=== PATIENT | female | born 1975 | race Caucasian/White ===

== ENCOUNTER 2020-01-31 14:55 | Outpatient (CLI) | payer OTHER, SELFPAY ==
--- NOTE | ~2020-01-31 | MM_ITS ---
EXAMINATION: MM screening luther BI w kandice HISTORY: Screening mammogram TECHNIQUE: Craniocaudal and mediolateral oblique 3-D tomosynthesis images were obtained and synthetic 2-D images were generated. CAD analysis was submitted and interpreted. COMPARISON: 01/28/2019 bilateral digital screening mammogram BREAST PARENCHYMAL COMPOSITION: The breasts are almost entirely fatty. FINDINGS: There is no evidence of suspicious mass, calcification, or architectural distortion to sugg est malignancy in either breast. There has been no suspicious interval change. IMPRESSION: 1. No mammographic evidence of malignancy. 2. Recommend routine screening mammography in one year. BI-RADS Category 1: Negative Reviewed, dictated and finalized at location A.
== END 2020-01-31 14:56 | disposition home or self-care (01) ==
LOC: ANHIMG 14:58
PROVIDERS: PCP Emergency Medicine; Visit Provider Obstetrics & Gynecology
DX: Z12.31 Encounter for screening mammogram for malignant neoplasm of breast (principal)
CPT/HCPCS: 77063; 77067

== ENCOUNTER 2020-07-27 15:43 | Outpatient (CLI) | payer OTHER, SELFPAY ==
--- NOTE | ~2020-07-27 | MR_ITS ---
EXAMINATION: MR knee LT wo con DATE: 07/27/2020 16:39 INDICATION: Left knee pain and swelling TECHNIQUE: Magnetic resonance imaging (MRI) of the left knee was performed without intravenous contra st. Sequences included coronal PD-weighted FSE, coronal PD-weighted FS FSE, sagittal T2-weighted FSE , sagittal PD-weighted FS FSE and axial PD weighted fat saturated FSE. COMPARISON: None. FINDINGS: Medial compartment: Medial meniscus is normal. Articular cartilage is normal. Lateral compartment: Lateral meniscus is normal. Articular cartilage is normal. Patellofemoral compartment: Small region of deep chondral fissuring with underlying mild cortical irregularity and subcortical cy stic change and mild surrounding marrow edema at the central aspect of the lateral trochlea. Shallow chondral ulceration at the caudal aspect of the more inferomedial lateral trochlea extends the trochl ear groove. More extensive deep chondral fissuring with crabmeat-like appearance along the lateral pa tellar facet, apical ridge and lateral side of the medial facet without degenerative subchondral jay ges. Focal deep chondral ulceration with mild underlying subarticular edema at the inferomedial aspec t of the medial facet. Ligaments and tendons: Anterior and posterior cruciate ligaments are normal. The medial collateral ligament and fibular stephanie ateral ligament complex are normal. The extensor mechanism is normal. The visualized medial and later al hamstring tendons as well as the iliotibial band are normal. Fluid: Physiologic amount of fluid in the joint space. No loose osteochondral bodies identified. Osseous/other: Bone alignment is normal. No fracture or pathologic marrow replacing process. IMPRESSION: 1. Mild patellofemoral osteoarthritis with small region of high-grade chondromalacia at the lateral t rochlea and more extensive moderate to high-grade patellar chondromalacia. Reviewed, dictated and finalized at location A. 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 Mild patellofemoral osteoarthritis with small region of high-grade chondroma lacia at the lateral trochlea and more extensive moderate to high-grade patella r chondromalacia.
== END 2020-07-27 15:44 | disposition home or self-care (01) ==
PROVIDERS: PCP Emergency Medicine; Visit Provider Orthopaedic Surgery
DX: M17.12 Unilateral primary osteoarthritis, left knee (principal); M22.42 Chondromalacia patellae, left knee
CPT/HCPCS: 73721

== ENCOUNTER 2021-03-28 14:16 | Outpatient (CLI) | payer OTHER, SELFPAY ==
--- NOTE | ~2021-03-28 | MM_ITS ---
EXAMINATION: MM screening luther BI w kandice HISTORY: Screening mammogram, family history of breast cancer in her mother. TECHNIQUE: Craniocaudal and mediolateral oblique 3-D tomosynthesis images were obtained and synthetic 2-D images were generated. CAD analysis was submitted and interpreted. COMPARISON: 01/31/2020 01/28/2019 BREAST PARENCHYMAL COMPOSITION: There are scattered areas of fibroglandular density. FINDINGS: There is no evidence of suspicious mass, calcification, or architectural distortion to sugg est malignancy in either breast. There has been no suspicious interval change. IMPRESSION: 1. No mammographic evidence of malignancy. 2. Recommend routine screening mammography in one year. BI-RADS Category 1: Negative Reviewed, dictated and finalized at location A.
== END 2021-03-28 14:17 | disposition home or self-care (01) ==
LOC: ANHIMG 14:19
PROVIDERS: PCP Emergency Medicine; Visit Provider Emergency Medicine
DX: Z12.31 Encounter for screening mammogram for malignant neoplasm of breast (principal)
CPT/HCPCS: 77063; 77067

== ENCOUNTER 2023-08-04 08:35 | Outpatient (CLI) | payer OTHER, SELFPAY ==
--- NOTE | 2023-08-06 12:38 | WPDSLEEPSTUD ---
Sleep Study Date of Study: 08/04/23 Ordering Provider: Angel Au DO Interpreting Physician: Ana Arriaga DO Sleep Study Type: Polysomnogram Height: 1.63 m Weight: 82.554 kg Body Mass Index: 31.2 Neck Circumference (inches): 13 [place]: 20 Reason for Sleep Study Difficulty falling asleep Sleep History The patient is a 48 year old female with hypothyroidism, hyperlipidemia, depression, COPD, migraine, congestive heart failure, kidney disease and tobacco use that had a sleep study ordered by her channel machine operator for evaluation sleep apnea. The patient occasionally awakens from sleep short of breath. She denies awakening at night with heartburn, belching or cough. She constantly snores but it is never loud enough that others complain. She constantly has trouble sleeping when she has a cold. She occasionally wakes up gasping for air throughout the night. She denies having breathing problems at night observed by herself or others. She occasionally sweats excessively at night. She occasionally has heart palpitations or irregular heartbeats during the night. He rarely falls asleep during the day but never while driving. She occasionally experiences loss of muscle tone when extremely emotional. She denies having trouble at school or work due to sleepiness. She denies sleep paralysis. She occasionally experiences vivid dreamlike scenes upon awakening or falling asleep. She rarely feels afraid of going to sleep. She denies having nightmares. She occasionally remembers her dreams. She constantly has thoughts racing through her mind. She constantly feels sad, depressed and anxious. She frequently has muscular tension. She occasionally notices parts of her body jerk. She rarely kicks during the night. She denies having crawling and aching feelings in her legs but occasionally has leg pain during the night. She denies grinding teeth during sleep but constantly awakens with morning jaw pain. She is frequently bothered by pain during the day and constantly awakened by pain during the night. She constantly wakes up feeling stiff in the morning. She constantly wakes up with sore or achy muscles. She constantly wakes up with pain in the neck, spine or other joints. She goes to bed at 10:00 p.m. on both weekdays and weekends. She is either able to fall asleep immediately or she will stay in bed for a while. She wakes up 3 times throughout the night for unknown reasons and it takes 30 minutes for her to fall back asleep. She wakes up between 5-6 a.m. on weekdays and between 5-7 a.m. on the weekends. She typically gets 3 hours of sleep per night. She will stay in bed for 20 minutes after waking up in the morning. She currently lives with her children. She denies consuming any caffeinated beverages within 2 hours of bedtime. She will engage in physical exercise before bedtime. She will read before falling asleep. She denies taking naps in the afternoon or the evening. She consumes 2 bottles of caffeinated beverage per day. She currently smokes less than half a pack of cigarettes per day. She denies alcohol and recreational drug use. [facility]LY [facility] Past Medical History Medical History Chondromalacia, patella Congestive heart failure COPD (chronic obstructive pulmonary disease) Headache, migraine Hyperlipidemia Hypothyroidism Kidney disease Left knee pain Medial meniscus tear Thyroid disorder Tongue cancer Surgical History Surgical History History of appendectomy History of gastric surgery History of kidney surgery History of mandibular surgery History of skin graft History of tooth extraction all teeth removed. History of total hysterectomy Family History Family History Father Skin cancer Diabetes mellitus Hypertension Heart disease Cerebrovascular
[2023-08-06 12:49] VITALS: BMI 31.2
== END 2023-08-05 07:26 | disposition home or self-care (01) ==
LOC: ANHCSM 08:35
PROVIDERS: PCP Emergency Medicine; Visit Provider Internal Medicine Cardiovascular Disease
DX: G47.10 Hypersomnia, unspecified (principal)
CPT/HCPCS: 95810

== ENCOUNTER 2023-08-20 02:44 | Day surgery (SDC) | payer OTHER, SELFPAY ==
[2023-07-23 13:01] VITALS: BMI 31.4
--- NOTE | 2023-08-04 09:11 | SUR.PREOP ---
Called patient regarding appointment reminder. Patient said she needed to reschedule because she forgot to arrange a ride through her insurance and the need a three day notice. I rescheduled her to Aug 15 and asked her to call her insurance company today to let them know she would need transportation. Patient voiced understanding.
[2023-08-12 08:34] VITALS: BMI 31.4
--- NOTE | 2023-08-12 08:38 | PC.NURSE ---
Pt rescheduled to 08/20/2023 pending stress/echo 08/15/2023.
--- NOTE | 2023-08-18 08:36 | SUR.PREOP ---
Spoke with patient and verified the new date and time of her rescheduled. Patient confirms and stated that there has been no updates to her medical history or medication list.
--- NOTE | 2023-08-18 10:40 | SUR.PREOP ---
Patient called regarding upcoming procedure. Reviewed preop instructions, appointment times, and procedure prep.
[2023-08-20 13:14] VITALS: BP 106/91; PULSE 78; RESP 16; TEMP 36.2; O2SAT 100; BMI 31.2
[2023-08-20] MEDS: LACTATED RINGERS 1,000 ML 150 ML IV CONT (13:35)
--- NOTE | 2023-08-20 13:45 | PM.HPGS ---
History of Present Illness History of Present Illness Consent: Risks, benefits, and alternatives have been discussed and questions answered. Patient agrees to proceed with procedure. Chief complaint: colon screening Narrative: Crystal Berry is a 48 year old female here for first screening colonoscopy, denies bleeding. Review of Systems Constitutional: Constitutional: Denies headache(s) and Denies weakness Eyes: Eyes: Denies blurry vision ENT: Reports Normal hearing present, Denies headache(s) and Denies neck pain Cardiovascular: Cardiovascular: Denies chest pain and Denies dyspnea Respiratory: Respiratory: Denies dyspnea Gastrointestinal: Gastrointestinal: Reports no additional gastrointestinal complaints Genitourinary: Genitourinary: Denies dysuria Musculoskeletal: Musculoskeletal: Denies neck pain Integumentary/Breasts: Skin/Breast: Denies dry skin Neurologic: Reports Normal hearing present, Denies headache(s) and Denies weakness Psychiatric: Psychiatric: Denies anxiety Endocrine: Endocrine: Denies change in body appearance Hematologic/Lymphatic: Hematologic/Lymphatic: Denies easy bleeding Allergic/Immunologic: Allergic/Immunologic: Denies urticaria PMFSH Past Medical History Medical History (Updated 08/20/23 @ 13:46 by William Banegas MD) Chondromalacia, patella Colon cancer screening Congestive heart failure COPD (chronic obstructive pulmonary disease) Headache, migraine Hyperlipidemia Hypothyroidism Kidney disease Left knee pain Medial meniscus tear Thyroid disorder Tongue cancer Surgical History Surgical History History of appendectomy History of gastric surgery History of kidney surgery History of mandibular surgery History of skin graft History of tooth extraction all teeth removed. History of total hysterectomy Family History Family History Father Skin cancer Diabetes mellitus Hypertension Heart disease Cerebrovascular accident Thyroid disorder Mother Depression Heart disease Grandparent Family history of malignant neoplasm Other Family history of arthritis Social History Social History Smoking status: Current every day smoker Tobacco type: cigarettes Smoking end date: 09/15/15 Alcohol intake: never Substance use: never Substance use type: does not use Living arrangements: with family Spiritual care concerns: No Meds Home Medications and Allergies Home Medications Medication Instructions Recorded Confirmed Type tramadol 50 mg tablet 50 mg PO Q6H PRN Pain 06/26/20 08/12/23 History gabapentin 100 mg capsule 100 mg PO DAILY 03/30/21 08/12/23 History levothyroxine 75 mcg tablet 50 mcg PO DAILY 03/30/21 08/12/23 History (Synthroid) rosuvastatin 10 mg tablet 10 mg PO DAILY 03/30/21 08/12/23 History estradiol 1 mg tablet 1 mg PO DAILY #90 tabs 04/06/21 08/12/23 Rx acetaminophen 500 mg tablet 500 mg PO DAILY PRN Pain 07/23/23 08/12/23 History diclofenac sodium 75 mg 75 mg PO DAILY 07/23/23 08/12/23 History tablet,delayed release duloxetine 30 mg capsule,delayed 60 mg PO DAILY 07/23/23 08/12/23 History release Allergies Allergy/AdvReac Type Severity Reaction Status Date / Time No Known Allergies Allergy Verified 08/20/23 12:54 Vital Signs Vital Signs - 24 hr 08/20/23 13:14 Temperature 97.1 F L Pulse Rate 78 Respiratory Rate 16 Blood Pressure 106/91 H Pulse Oximetry 100 Oxygen Delivery Room Air Exam Const: General: comfortable and no acute distress HENMT: Face/Nose/Sinus: Normal nares present Eyes: General: appearance normal, both eyes and all related structures Neck: Neck: no JVD Resp: Auscultation: clear to auscultation bilaterally Cardio: Rate: regular rate Rhythm: regular rhythm GI: Inspection
--- NOTE | 2023-08-20 13:48 | WPDANESEPPF ---
Anes - Initial Pre Proc Eval Procedure: Operation Date: 08/20/23 14:00 Proposed Procedures p Colonoscopy - William Banegas MD Date/Time: 08/20/23 13:48 Surgeon: William Banegas MD Pre Op Diagnosis: colon screening Patient Data Age: 48 Gender: F Height: 1.63 m Weight: 82.5 kg Last Vital Signs Temp 97.1 F L 08/20/23 13:14 Pulse 78 08/20/23 13:14 Resp 16 08/20/23 13:14 BP 106/91 H 08/20/23 13:14 Pulse Ox 100 08/20/23 13:14 O2 Del Method Room Air 08/20/23 13:14 Allergies Allergy/AdvReac Type Severity Reaction Status Date / Time No Known Allergies Allergy Verified 08/20/23 12:54 Home Medications Medication Instructions Recorded Confirmed Type tramadol 50 mg tablet 50 mg PO Q6H PRN Pain 06/26/20 08/12/23 History gabapentin 100 mg capsule 100 mg PO DAILY 03/30/21 08/12/23 History levothyroxine 75 mcg tablet 50 mcg PO DAILY 03/30/21 08/12/23 History (Synthroid) rosuvastatin 10 mg tablet 10 mg PO DAILY 03/30/21 08/12/23 History estradiol 1 mg tablet 1 mg PO DAILY #90 tabs 04/06/21 08/12/23 Rx acetaminophen 500 mg tablet 500 mg PO DAILY PRN Pain 07/23/23 08/12/23 History diclofenac sodium 75 mg 75 mg PO DAILY 07/23/23 08/12/23 History tablet,delayed release duloxetine 30 mg capsule,delayed 60 mg PO DAILY 07/23/23 08/12/23 History release Patient hx anesthesia problems: none Family hx anesthesia problems: none Results Review: All pre-operative results and documents have been reviewed as part of the pre-operative evaluation. [facility] Past Medical History Medical History (Updated 08/20/23 @ 13:46 by William Banegas MD) Chondromalacia, patella Colon cancer screening Congestive heart failure COPD (chronic obstructive pulmonary disease) Headache, migraine Hyperlipidemia Hypothyroidism Kidney disease Left knee pain Medial meniscus tear Thyroid disorder Tongue cancer Surgical History Surgical History History of appendectomy History of gastric surgery History of kidney surgery History of mandibular surgery History of skin graft History of tooth extraction all teeth removed. History of total hysterectomy Family History Family History Father Skin cancer Diabetes mellitus Hypertension Heart disease Cerebrovascular accident Thyroid disorder Mother Depression Heart disease Grandparent Family history of malignant neoplasm Other Family history of arthritis Social History Social History Smoking status: Current every day smoker Tobacco type: cigarettes Smoking end date: 09/15/15 Alcohol intake: never Substance use: never Substance use type: does not use Living arrangements: with family Spiritual care concerns: No Anes - Eval Final PreProcedure Day of Procedure 08/20/23 13:48 Patient weight: normal Heart: regular rate and rhythm Lungs: clear to auscultation Airway: Mallampati scale class III Neurological: alert and oriented Last oral intake: >/= 8 hours ASA classification: III Emergent: no Anesthetic plan: proceed Anesthesia type and monitoring: general GIVS and standard monitoring Results Review: All pre-operative results and documents have been reviewed as part of the pre-operative evaluation. Informed Consent: The patient's anesthetic plan and its attendant risks and benefits were discussed with the patient/family/POA. Questions were solicited and answers provided to the satisfaction of the patient/family/POA.
[2023-08-20 14:06] VITALS: BP 106/78; PULSE 80; RESP 20; O2SAT 100
[2023-08-20 14:26] VITALS: BP 110/70; PULSE 77; RESP 20; O2SAT 100
[2023-08-20 14:27] VITALS: BP 91/53; PULSE 82; RESP 18; O2SAT 99
== END 2023-08-20 14:37 | disposition home or self-care (01) ==
PROVIDERS: PCP Emergency Medicine; Visit Provider Internal Medicine Gastroenterology
PROC: 0DJD8ZZ Inspection of Lower Intestinal Tract, Via Natural or Artificial Opening Endoscopic (ICD-10-PCS; CPT 45378; principal; 2023-08-20 14:00)
DX: Z12.11 Encounter for screening for malignant neoplasm of colon (principal); J44.9 Chronic obstructive pulmonary disease, unspecified; I50.9 Heart failure, unspecified; E78.5 Hyperlipidemia, unspecified; E03.9 Hypothyroidism, unspecified; N28.9 Disorder of kidney and ureter, unspecified; F17.210 Nicotine dependence, cigarettes, uncomplicated
CPT/HCPCS: G0121; J2704; J7120

== ENCOUNTER 2023-09-17 08:45 | Outpatient (CLI) | payer OTHER, SELFPAY ==
--- NOTE | 2023-09-17 08:49 | EST_ITS ---
Patient Info Name: Crystal Berry Age: 48 years : 1975 Gender: Female Ht: 64 in Wt: 175 lbs BSA: 1.92 m2 HR: 59 bpm BP: 100 / 58 mmHg Heart Rhythm: Sinus Rhythm Exam Date: 09/17/2023 10:22 AM Exam Location: Echo Lab Patient Status: Outpatient Admit Date: 09/17/2023 Staff Ordering Physician: Angel Au DO Attending Provider: Angel Au DO Exercise Technologist: Yareli Kang RDCS Exercise Physician: Angel Au DO Exam Type: CA stress test treadmill Study Info A treadmill exercise stress test was performed. Summary 1. 1. Negative Bhavik exercise stress test for ischemic ST changes by ECG criteria. However, achieved only 78% MPHR for age group which reduces sensitivity of the test. 2. 2. Reduced functional capacity, achieving 9 METs of workload. 3. 3. Appropriate HR response to exercise. 4. 4. Appropriate HR recovery at 1 minute post exercise. 5. 5. No imaging with stress testing. 6. 6. Patient informed of the above results. Protocol: Bhavik Stress ECG Details Stage: REST Duration (min): 1 min : 48 sec Speed (mph): 0.0 Grade (%): 0 HR (bpm): 57 SBP (mmHg): 100 DBP (mmHg): 58 METS: --- Stage: REST Duration (min): 13 min : 57 sec Speed (mph): 0.0 Grade (%): 0 HR (bpm): 70 SBP (mmHg): 100 DBP (mmHg): 58 METS: --- Stage: STAGE 1 Duration (min): 1 min : 0 sec Speed (mph): 1.7 Grade (%): 10 HR (bpm): 90 SBP (mmHg): 100 DBP (mmHg): 58 METS: --- Stage: STAGE 1 Duration (min): 2 min : 0 sec Speed (mph): 1.7 Grade (%): 10 HR (bpm): 97 SBP (mmHg): 100 DBP (mmHg): 58 METS: --- Stage: STAGE 1 Duration (min): 3 min : 0 sec Speed (mph): 1.7 Grade (%): 10 HR (bpm): 100 SBP (mmHg): 122 DBP (mmHg): 65 METS: --- Stage: STAGE 2 Duration (min): 1 min : 0 sec Speed (mph): 2.5 Grade (%): 12 HR (bpm): 104 SBP (mmHg): 122 DBP (mmHg): 65 METS: --- Stage: STAGE 2 Duration (min): 2 min : 0 sec Speed (mph): 2.5 Grade (%): 12 HR (bpm): 110 SBP (mmHg): 138 DBP (mmHg): 66 METS: --- Stage: STAGE 2 Duration (min): 3 min : 0 sec Speed (mph): 2.5 Grade (%): 12 HR (bpm): 109 SBP (mmHg): 138 DBP (mmHg): 66 METS: --- Stage: STAGE 3 Duration (min): 1 min : 0 sec Speed (mph): 3.4 Grade (%): 14 HR (bpm): 134 SBP (mmHg): 138 DBP (mmHg): 66 METS: --- Stage: STAGE 3 Duration (min): 1 min : 23 sec Speed (mph): 0.0 Grade (%): 0 HR (bpm): 138 SBP (mmHg): 138 DBP (mmHg): 66 METS: --- Stage: RECOVERY Duration (min): 0 min : 36 sec Speed (mph): 0.0 Grade (%): 0 HR (bpm): 119 SBP (mmHg): 100 DBP (mmHg): 48 METS: --- Stage: RECOVERY Duration (min): 1 min : 36 sec Speed (mph): 0.0 Grade (%): 0 HR (bpm): 75 SBP (mmHg): 100 DBP (mmHg): 48 METS: --- Stage: RECOVERY Duration (min): 2 min : 36 sec Speed (mph): 0.0 Grade (%): 0 HR (bpm): 67
--- NOTE | 2023-09-17 08:58 | ECHO_ITS ---
Patient Info Name: Crystal Berry Age: 48 years : 1975 Gender: Female Ht: 64 in Wt: 183 lbs BSA: 1.97 m2 HR: 55 bpm BP: 120 / 80 mmHg Technical Quality: Fair Exam Date: 09/17/2023 9:03 AM Exam Location: Echo Lab Patient Status: Outpatient Admit Date: 09/17/2023 Staff Ordering Physician: Angel Au DO Attending Provider: Angel Au DO Referring Physician: Roe MENA; Exam Type: CA echo doppler color flow Study Info Indications R06.00 - Dyspnea, unspecified Complete two-dimensional, color flow and Doppler transthoracic echocardiogram is performed. Summary 1. Complete two-dimensional, color flow and Doppler transthoracic echocardiogram is performed. 2. Left ventricular chamber dimension is normal. 3. Left ventricular systolic function is normal, estimated at 60-65%. 4. The left ventricular diastolic function is grade I diastolic dysfunction. 5. E/e' 6 is not elevated. 6. There is trace tricuspid valve regurgitation. 7. RVSP is not measured due to an inadequate TR jet. Left Ventricle E/e' 6 is not elevated. Left ventricular chamber dimension is normal. Left ventricular systolic function is normal, estimated at 60-65%. The left ventricular diastolic function is grade I diastolic dysfunction. Right Ventricle Right ventricular chamber dimension is normal. Right ventricular systolic function is normal and with normal TAPSE 1.8 cm. Left Atria Left atrial chamber dimension is normal. Right Atria Right atrial chamber dimension is normal. Aortic Valve The aortic valve is trileaflet. There is no aortic valve stenosis. There is no aortic valve regurgitation. Pulmonic Valve There is no pulmonic regurgitation. Mitral Valve There is no mitral valve stenosis. There is no mitral valve regurgitation. Tricuspid Valve There is trace tricuspid valve regurgitation. RVSP is not measured due to an inadequate TR jet. Pericardium/Pleural There is no pericardial effusion. Inferior Vena Cava Normal inferior vena cava with >50% collapse upon inspiration consistent with normal right atrial pressure, 5 mmHg. Aorta The aortic root size at the sinus of Valsalva is normal. Left Ventricular Outflow Tract Name Value Normal LVOT 2D LVOT Diameter 2.0 cm LVOT Doppler LVOT Peak Gradient 4 mmHg LVOT Mean Gradient 2 mmHg LVOT VTI 22 cm LVOT VTI/AV VTI Ratio 0.7 LVOT Stroke Volume 70 ml LVOT CO 4.1 l/min LVOT CI 2.1 l/min/m2 Pulmonic Valve Name Value Normal PV Doppler PV Peak Gradient 2 mmHg Mitral Valve Name Value Normal MV Doppler -----
== END 2023-09-17 08:46 | disposition home or self-care (01) ==
LOC: ANHCARD 08:46
PROVIDERS: PCP Emergency Medicine; Visit Provider Internal Medicine Cardiovascular Disease
DX: R06.09 Other forms of dyspnea (principal); R07.9 Chest pain, unspecified
CPT/HCPCS: 93017; 93306

== ENCOUNTER 2023-09-25 12:20 | Outpatient (CLI) | payer OTHER, SELFPAY ==
[2023-09-25 13:15] LABS: Hematocrit 39.6 % (37.0-47.0); Hemoglobin 12.8 g/dL (12.0-15.0)
== END 2023-09-25 12:21 | disposition home or self-care (01) ==
LOC: ANHLAB 12:22
PROVIDERS: PCP Emergency Medicine; Visit Provider Anesthesiology
DX: D64.9 Anemia, unspecified (principal); Z01.818 Encounter for other preprocedural examination
CPT/HCPCS: 36415; 85014; 85018

== ENCOUNTER 2023-09-25 13:00 | Emergency (ER) | payer OTHER, SELFPAY ==
--- NOTE | ~2023-09-25 | CT_ITS ---
EXAMINATION: CT abdomen pelvis wo con DATE: 09/25/2023 14:50 INDICATION: Lower abdominal pain and left flank pain. Urinary tract infection. TECHNIQUE: Computed tomography (CT) of the abdomen and pelvis was performed without intravenous contr ast. Automated exposure control and iterative reconstruction technique were employed. The dose-length product was 347.09 mGy-cm. COMPARISON: None FINDINGS: Lung bases are clear. No pleural effusion. Heart size is normal. Minimal pericardial effusion. Liver, gallbladder, spleen, pancreas, bilateral adrenal glands and left kidney are normal. There is urothel ial thickening at the right renal pelvis and along the right ureter with associated mild right perine phric and periureteral stranding. No urolithiasis or hydronephrosis. Bowels are normal. Bladder is no rmal. The uterus is not identified and has likely been surgically resected. There is gas within the v aginal vault. No free intraperitoneal gas or fluid. No pathologically enlarged abdominal or pelvic ly mphadenopathy. Mild likely physiologic anterior wedging at T11 and T12 with mild lower thoracic spond ylosis. IMPRESSION: 1. Urothelial thickening at the right renal pelvis and right ureter without evident urolithiasis susp icious for ascending urinary tract infection and pyelitis. 2. Minimal pericardial effusion. Reviewed, dictated and finalized at location A. [facility] [employer] IMPRESSION: 1. Urothelial thickening at the right renal pelvis and right ureter without eliana dent urolithiasis suspicious for ascending urinary tract infection and pyelitis . 2. Minimal pericardial effusion.
[2023-09-25 13:26] VITALS: BP 121/80; PULSE 96; RESP 16; TEMP 36.4; O2SAT 99
[2023-09-25 13:47] LABS: Bacteria Urine 4+ /hpf; Bilirubin Urine Negative (Negative); Blood Urine 2+ (Negative); Color Urine Yellow (Yellow); Glucose Urine UA Negative (Negative); Ketones Urine Negative (Negative); Leukocyte Esterase Ur 3+ LEU/UL (Negative); Nitrate Urine Positive (Negative); Non Pathogenic Casts 0-2; Protein Urine 2+ mg/dL (Negative); Specific Grav Ur 1.014 (1.001-1.035); Squamous Epithelial Cell Urine Moderate /hpf (Few); Urobilinogen Urine 0.2 mg/dL (<2.0); WBC Urine >100 /hpf
[2023-09-25 13:50] LABS: Add Urine Microscopic? YES; Appearance Urine Slightly Cloudy (Clear)
--- NOTE | 2023-09-25 14:29 | ED.FEMALEGU ---
HPI - Female Genitourinary General Chief complaint: Urogenital-Female Stated complaint: UTI Time Seen by Provider: 09/25/23 14:01 Source: patient Mode of arrival: ambulatory Limitations: no limitations History of Present Illness HPI Narrative: Patient is a 48 y/o female who presents to the ED with urinary complaints. Patient reports having dysuria, urinary frequency, small void urines, feeling of incomplete emptying for the last 1 week. Symptoms have become worse over the last couple of days. She also reports having pain throughout her lower abdomen and lower back over the last couple of days. She is concerned she has a UTI. Denies fevers, nausea, vomiting, hematuria, abnormal vaginal bleeding. Patient has not taken anything for symptoms. Related Data Home Medications Medication Instructions Recorded Confirmed tramadol 50 mg tablet 50 mg PO Q6H PRN Pain 06/26/20 09/18/23 gabapentin 100 mg capsule 100 mg PO TID 03/30/21 09/18/23 levothyroxine 75 mcg tablet 50 mcg PO DAILY 03/30/21 09/18/23 (Synthroid) rosuvastatin 10 mg tablet 10 mg PO DAILY 03/30/21 09/18/23 acetaminophen 500 mg tablet 1,000 mg PO PRN PRN Pain 07/23/23 09/18/23 diclofenac sodium 75 mg 75 mg PO DAILY 07/23/23 09/18/23 tablet,delayed release duloxetine 30 mg capsule,delayed 60 mg PO DAILY 07/23/23 09/18/23 release ferrous sulfate 134 mg (27 mg mg 09/18/23 iron) tablet Allergies Allergy/AdvReac Type Severity Reaction Status Date / Time No Known Allergies Allergy Verified 09/25/23 13:36 Review of Systems Review of Systems: CONSTITUTIONAL: Denies fever, chills, or sweats. GASTROINTESTINAL: See HPI. GENITOURINARY: See HPI MUSCULOSKELETAL: See HPI. All systems reviewed & are unremarkable except as noted in HPI and below PMFSH Past Medical History Medical History Chondromalacia, patella Colon cancer screening Congestive heart failure COPD (chronic obstructive pulmonary disease) Headache, migraine Hyperlipidemia Hypothyroidism Kidney disease Left knee pain Medial meniscus tear Thyroid disorder Tongue cancer Surgical History Surgical History History of appendectomy History of gastric surgery History of kidney surgery History of mandibular surgery History of skin graft History of tooth extraction all teeth removed. History of total hysterectomy Family History Family History Father Skin cancer Diabetes mellitus Hypertension Heart disease Cerebrovascular accident Thyroid disorder Mother Depression Heart disease Grandparent Family history of malignant neoplasm Other Family history of arthritis Social History Social History Social History: caffeine use Smoking packs per day: 0.75 Smoking cigarettes per day: 15.0 Years smoked: 30 Smoking pack-years: 22.50 Smoking status: Current every day smoker Tobacco type: e-cigarettes/vaping Smoking end date: 09/15/15 Alcohol intake: former Substance use: former Substance use type: marijuana Living arrangements: with family Occupation/Education: occupation 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 HEAD: Normocephalic, atraumatic. RESPIRATORY: Airway patent, respirations nonlabored. Clear to auscultation bilaterally, no rales, rhonchi, wheezing. CARDIOVASCULAR: Regular rate and rhythm. ABDOMINAL: Soft, diffuse tenderness throughout lower abdomen, nondistended. Normoactive BS. +Left-sided CVA tenderness to percussion. MUSCULOSKELETAL: Moves all extremities. No gross deformities. SKIN: Warm,
[2023-09-25 15:04] LABS: Basophils Percent Auto 0.5 % (0.2-1.2); Hematocrit 42.3 % (37.0-47.0); Hemoglobin 13.3 g/dL (12.0-15.0); Immature Granulocyte Absolute 0.02 K/mm3 (0.00-0.031); Immature Granulocyte Percent A 0.2 % (0-0.5); Lymphocytes Absolute Auto 1.09 K/mm3 (0.9-3.2); Lymphocytes Percent Auto 12.9 % (18.3-44.2); Mean Corpuscular HGB Conc 31.4 g/dl (32-36); Mean Corpuscular Hemoglobin 27.9 pg (26-34); Mean Corpuscular Volume 88.7 fl (80-100); Mean Platelet Volume 11.3 fl (7.4-10.4); Monocytes Absolute Auto 0.7 K/mm3 (0.1-0.6); Monocytes Percent Auto 8.1 % (2.6-8.5); Neutrophils Absolute Auto 6.6 K/mm3 (1.3-6.7); Neutrophils Percent Auto 78.3 % (45.5-73.1); Platelet Count Result 202 k/mm3 (150-375); Red Blood Count 4.77 M/mm3 (4.2-5.4); Red Cell Distribution Width 13.3 % (11.5-14.5); White Blood Count 8.5 K/mm3 (4.5-10.0)
[2023-09-25 15:18] LABS: Alanine Aminotransferase 20 U/L (6-35); Albumin Level 4.3 g/dL (3.5-5.1); Alkaline Phosphatase 98 U/L (38-126); Anion Gap 10 mmol/L (8-16); Aspartate Amino Transferase 21 U/L (14-36); Bilirubin,Total 0.6 mg/dL (0.2-1.3); Blood Urea Nitrogen 14 mg/dL (7-17); Calcium 9.6 mg/dL (8.4-10.2); Carbon Dioxide 27 mmol/L (22-30); Chloride 103 mmol/L (98-107); Estimated CRCL calculation 78 ml/min; Estimated Glomerular Filt Rate > 60; Glucose 96 mg/dL (65-110); Sodium 140 mmol/L (137-145)
== END 2023-09-25 16:05 | disposition home or self-care (01) ==
PROVIDERS: Emergency Medicine; Emergency Provider Physician Assistant; PCP Emergency Medicine
DX: N10 Acute pyelonephritis (principal); I50.9 Heart failure, unspecified; J44.9 Chronic obstructive pulmonary disease, unspecified; E78.5 Hyperlipidemia, unspecified; E03.9 Hypothyroidism, unspecified; N28.9 Disorder of kidney and ureter, unspecified; Z85.810 Personal history of malignant neoplasm of tongue; Z87.891 Personal history of nicotine dependence; Z90.710 Acquired absence of both cervix and uterus
CPT/HCPCS: 36415; 74176; 80053; 81001; 85014; 85018; 85025; 87077; 87086; 87186; 96365; 99284; J0696

== ENCOUNTER 2023-09-30 00:59 | Day surgery (SDC) | payer OTHER, SELFPAY ==
[2023-09-18 10:06] VITALS: BMI 29.1
--- NOTE | 2023-09-18 10:15 | PC.NURSE ---
Report to the Outpatient Waiting Room, entrance under the green pavilion located off [facility], at time 11:30AM on date 09-30-23. Planned Procedure Time: 1:30PM. Time changes happen often and if your time is changed the preop area will call you the afternoon before. - You and your visitor will be asked to self-screen and do not enter if you have any COVID symptoms. - A mask is optional within the hospital at this time. Patients may have clear liquids (water, carbonated beverages, clear teas, apple juice) until 3 hours prior to surgery (10:30AM) with a maximum of 20 ounces. - No food from midnight until time of surgery Take the following medications with a SIP of water the morning of surgery: LEVOTHYROXINE DO NOT STOP ANY OF YOUR OTHER PRESCRIPTION MEDICATIONS PRIOR TO SURGERY ?EXCEPT THE FOLLOWING Medications to discontinue per physician VITAMINS Date to take last dose 09-26-22 Please no make-up, nail italian, hairspray, perfume, deodorant, or body powder the day of surgery. No jewelry (including any body piercings) or valuables the day of surgery, leave them at home. Please take a shower or bath the night before, or the morning of, surgery with an antibacterial soap. Wear comfortable, loose fitting clothing. - Jewelry must be removed prior to entering the operating room. Rings and piercings that are not removed may be cut off. - The hospital will not accept responsibility for valuables. - Please leave all valuables, including medications, at home the day of surgery. If you are going home after surgery, a licensed xm1 tank driver must drive you home. - NO public transportation without another adult if you receive anesthesia. - We recommend that an adult stay with you for 24 hours following discharge. - We also recommend that you do not drive, make important decision, drink alcoholic beverages, or take any drugs that were not prescribed by your health care provider for at least 24 hours after your discharge time. Follow any additional instructions given to you from your surgeon. If you or anyone in your household have experienced Covid symptoms in the past week, please notify your surgeon or the nurse liaison at the phone number below for possible testing. Telephone instructions given to PATIENT and asked if any additional questions and then verbalized understanding. Patient advised to call surgeon office or pre surgery nurse liaison [phone] if any additional questions.
[2023-09-30] VITALS (7 sets, daily range): BP systolic 119–132; BP diastolic 47–89; PULSE 57–89; RESP 12–20; TEMP 36.2–36.6; O2SAT 94–100
[2023-09-30] MEDS: CELECOXIB 200 MG CAPSULE PO (11:10)
[2023-09-30] MEDS: ACETAMINOPHEN 500 MG TABLET 1000 MG PO (11:10)
--- NOTE | 2023-09-30 11:42 | WPDANESEPPF ---
Anes - Initial Pre Proc Eval Procedure: Operation Date: 09/30/23 12:00 Proposed Procedures p Left Knee Arthroscopy - Bryan Goodrich MD Date/Time: 09/30/23 11:42 Surgeon: Bryan Goodrich MD Pre Op Diagnosis: left knee chondromalacia patella Patient Data Age: 48 Gender: F Height: 1.63 m Weight: 82.15 kg Last Vital Signs Temp 36.6 C 09/30/23 11:10 Pulse 73 09/30/23 11:10 Resp 14 09/30/23 11:10 BP 119/89 09/30/23 11:10 Pulse Ox 100 09/30/23 11:10 O2 Del Method Room Air 09/30/23 11:10 Allergies Allergy/AdvReac Type Severity Reaction Status Date / Time No Known Allergies Allergy Verified 09/30/23 11:20 Home Medications Medication Instructions Recorded Confirmed Type tramadol 50 mg tablet 50 mg PO Q6H PRN Pain 06/26/20 09/18/23 History gabapentin 100 mg capsule 100 mg PO TID 03/30/21 09/18/23 History levothyroxine 75 mcg tablet 50 mcg PO DAILY 03/30/21 09/18/23 History (Synthroid) rosuvastatin 10 mg tablet 10 mg PO DAILY 03/30/21 09/18/23 History acetaminophen 500 mg tablet 1,000 mg PO PRN PRN Pain 07/23/23 09/18/23 History diclofenac sodium 75 mg 75 mg PO DAILY 07/23/23 09/18/23 History tablet,delayed release duloxetine 30 mg capsule,delayed 60 mg PO DAILY 07/23/23 09/18/23 History release ferrous sulfate 134 mg (27 mg mg 09/18/23 History iron) tablet chlorhexidine gluconate 4 % 1 applic topical ONCE #237 mL 09/23/23 Rx topical liquid (Hibiclens) phenazopyridine 200 mg tablet 200 mg PO TID 6 doses #6 tabs 09/25/23 Rx (Pyridium) sulfamethoxazole 800 1 tablet PO Q12H 7 days #14 tabs 09/25/23 Rx mg-trimethoprim 160 mg tablet (Bactrim DS) Patient hx anesthesia problems: none Family hx anesthesia problems: none Results Review: All pre-operative results and documents have been reviewed as part of the pre-operative evaluation. [facility] Past Medical History Medical History Chondromalacia, patella Colon cancer screening Congestive heart failure COPD (chronic obstructive pulmonary disease) Headache, migraine Hyperlipidemia Hypothyroidism Kidney disease Left knee pain Medial meniscus tear Thyroid disorder Tongue cancer Surgical History Surgical History History of appendectomy History of gastric surgery History of kidney surgery History of mandibular surgery History of skin graft History of tooth extraction all teeth removed. History of total hysterectomy Family History Family History Father Skin cancer Diabetes mellitus Hypertension Heart disease Cerebrovascular accident Thyroid disorder Mother Depression Heart disease Grandparent Family history of malignant neoplasm Other Family history of arthritis Social History Social History Social History: caffeine use Smoking packs per day: 0.75 Smoking cigarettes per day: 15.0 Years smoked: 30 Smoking pack-years: 22.50 Smoking status: Current every day smoker Tobacco type: e-cigarettes/vaping Smoking end date: 09/15/15 Alcohol intake: former Substance use: former Substance use type: marijuana Living arrangements: with family Occupation/Education: occupation 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
--- NOTE | 2023-09-30 11:56 | WPDHPUPDATE1 ---
History and Physical Update Update Date/Time: 09/30/23 11:56 History and Physical has been reviewed, including an updated exam of the patient. There are NO changes in the patient's condition. Risks, benefits, and alternatives have been discussed and questions answered. Patient agrees to proceed with procedure.
[2023-09-30] MEDS: ceFAZolin 2 GM/D5W 50 ML 2 GM/50 ML BAG IVPB (12:00)
[2023-09-30] MEDS: BUPivacaine HCL 0.5% PF 30 ML VIAL INFILTRATE (12:22)
[2023-09-30] MEDS: LACTATED RINGERS 1,000 ML 30 ML IV CONT (13:11)
--- NOTE | 2023-09-30 13:14 | W.PM.PROC2 ---
Procedure Note - Detailed Date of Procedure 09/30/23 Pre-op Diagnosis left knee chondromalacia patella Post-op Diagnosis Same Procedure Performed LEFT KNEE SCOPE WITH CHONDRO PLASTY AND MAJOR SYNOVECTOMY Surgeon Bryan Goodrich MD Anesthesia General Description of Procedure PATIENT WAS TAKEN TO THE OR. LEFT LEG WAS PREPPED AND DRAPED STERILE. TROCARS WERE PLACED IN THE USUAL FASHION. CAMERA WAS INTRODUCED. THERE WAS SEVERE CHONDROMALACIA TO THE PATELLA FEMORAL JOINT. THERE WAS A LOT OF SYNOVITIS IN ALL COMPARTMENTS. THE MEDIAL COMPARTMENT SHOWED NO CHONDROMALACIA TO THE MEDIAL FEMORAL CONDYLE OR PLATEAU. THERE WAS NO MEDIAL MENISCUS TEAR. THE ACL WAS INTACT. THE LATERAL MENISCUS WAS NOT TORN. THE LATERAL COMPARTMENT HAD MINIMAL CHONDROMALACIA. CHONDROPLASTY WAS PREFORMED. A SYNOVECTOMY WAS PREFORMED WELL. THE PATELLO FEMORAL JOINT UNDERWENT CHONDROPLASTY OVER THE PATELLA AND TROCHLEA. THERE WAS GRADE 2 CHONDROMALACIA IN PART OF THE TROCHLEA AND PART OF THE PATELLA. SYNOVECTOMY WAS PREFORMED IN THE SUPERIOR MEDIAL COMPARTMENT WITH THE EXCISION OF A LARGE PLICA BAND. THE WOUNDS WERE APPROXIMATED WITH 4.0 NYLON. STERILE DRESSING WAS APPLIED. PATIENT WAS EXTUBATED. Estimated Blood Loss 5 Complications No immediate complications Condition Stable Disposition PACU
[2023-09-30] MEDS: fentaNYL CITRATE INJ (*CRX) 100 MCG/2 ML VIAL 25 MCG IV PUSH ×6 (13:25→13:47)
[2023-09-30] MEDS: oxyCODONE HCL (*CRX) 5 MG TAB IR PO (14:10)
== END 2023-09-30 14:50 | disposition home or self-care (01) ==
PROVIDERS: PCP Emergency Medicine; Visit Provider Orthopaedic Surgery
PROC: (CPT 29870; principal; 2023-09-30 12:00)
DX: M22.42 Chondromalacia patellae, left knee (principal); M65.862 Other synovitis and tenosynovitis, left lower leg; I50.9 Heart failure, unspecified; E03.9 Hypothyroidism, unspecified; E78.5 Hyperlipidemia, unspecified; Z85.810 Personal history of malignant neoplasm of tongue
CPT/HCPCS: 29876; A9270; J0690; J1100; J2250; J2405; J2704; J3010; J7120

== ENCOUNTER 2024-01-08 14:52 | Emergency (ER) | payer OTHER, SELFPAY ==
--- NOTE | ~2024-01-08 | XR_ITS ---
EXAMINATION: XR ribs LT 2V w CXR 2V DATE: 01/08/2024 17:03 INDICATION: Left-sided pain post fall TECHNIQUE: PA and lateral views of the chest and 3 views of the left ribs were obtained. COMPARISON: Chest radiograph dated FINDINGS: No rib fractures identified. Mild elevation the left hemidiaphragm. No focal airspace opacities, pulm onary edema, pleural effusion or pneumothorax. IMPRESSION: 1. Mild elevation of left hemidiaphragm. No rib fracture or acute cardiopulmonary disease. Reviewed, dictated and finalized at location A. IMPRESSION: 1. Mild elevation of left hemidiaphragm. No rib fracture or acute cardiopulmona ry disease.
[2024-01-08 14:57] VITALS: BP 142/88; PULSE 95; RESP 18; TEMP 36.6; O2SAT 97
[2024-01-08 15:11] VITALS: O2SAT 98
--- NOTE | 2024-01-08 15:16 | PC.NURSE ---
Pt to exam room 20 with large bag of food c/o left lower ribs pain for 1 week. Pt denies any injury.
--- NOTE | 2024-01-08 16:31 | PC.NURSE ---
Assessment unchanged continue to wait for ED provider evaluation
--- NOTE | 2024-01-08 17:36 | ED.GENADULT ---
HPI - General Adult General Chief complaint: Unspecified Stated complaint: I need to get my ribs looked at Time Seen by Provider: 01/08/24 17:13 Source: patient Mode of arrival: ambulatory Limitations: no limitations History of Present Illness HPI narrative: This is a 48-year-old female who presents to the ED with chief complaint of injury to the left ribs. Reports that yesterday she was walking through the house and accidentally fell down onto the left side. She was trying to avoid stepping on her CT and accidentally stumbled. Patient reports that she has pain to the left lateral inferior ribs. Denies any further sites of injury. Pain worsens with deep breathing and with cough or laugh. Related Data Home Medications Medication Instructions Recorded Confirmed tramadol 50 mg tablet 50 mg PO Q6H PRN Pain 06/26/20 01/08/24 gabapentin 100 mg capsule 100 mg PO TID 03/30/21 01/08/24 levothyroxine 75 mcg tablet 50 mcg PO DAILY 03/30/21 01/08/24 (Synthroid) rosuvastatin 10 mg tablet 10 mg PO DAILY 03/30/21 01/08/24 acetaminophen 500 mg tablet 1,000 mg PO PRN PRN Pain 07/23/23 01/08/24 diclofenac sodium 75 mg 75 mg PO DAILY 07/23/23 01/08/24 tablet,delayed release duloxetine 30 mg capsule,delayed 60 mg PO DAILY 07/23/23 01/08/24 release ferrous sulfate 134 mg (27 mg mg 09/18/23 01/08/24 iron) tablet Allergies Allergy/AdvReac Type Severity Reaction Status Date / Time No Known Allergies Allergy Verified 01/08/24 14:52 Review of Systems Review of Systems: All systems as dictated in HPI [facility] Past Medical History Medical History Chondromalacia, patella Colon cancer screening Congestive heart failure COPD (chronic obstructive pulmonary disease) Headache, migraine Hyperlipidemia Hypothyroidism Kidney disease Left knee pain Medial meniscus tear Thyroid disorder Tongue cancer Surgical History Surgical History History of appendectomy History of gastric surgery History of kidney surgery History of mandibular surgery History of skin graft History of tooth extraction all teeth removed. History of total hysterectomy Family History Family History Father Skin cancer Diabetes mellitus Hypertension Heart disease Cerebrovascular accident Thyroid disorder Mother Depression Heart disease Grandparent Family history of malignant neoplasm Other Family history of arthritis Social History Social History Social History: caffeine use Smoking packs per day: 0.75 Smoking cigarettes per day: 15.0 Years smoked: 30 Smoking pack-years: 22.50 Smoking status: Former smoker Tobacco type: e-cigarettes/vaping Smoking end date: 09/15/15 Alcohol intake: former Substance use: former Substance use type: marijuana Living arrangements: with family Occupation/Education: occupation 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 HEAD: Normocephalic, atraumatic. EYES: PERRLA and EOMI. ENT: Nares clear, no rhinorrhea or epistaxis. Mucous membranes moist. Oropharynx without tonsillar hypertrophy exudate or other lesions. NECK: Supple. No adenopathy or masses. CHEST: No respiratory distress. Clear to auscultation. No wheezes rales or rhonchi. Mild tenderness to the left lateral inferior most ribs. No crepitus. Breath sounds equal. HEART: Regular rate and rhythm. No murmur heard. Normal peripheral pulses. ABDOMEN: Soft, nontender, nondistended, normal active bowel sounds. MSK: Normal range of motion. No edema. SKIN: Warm, dry, no rash. NEURO: Alert and oriented x3. No focal d
--- NOTE | 2024-01-08 17:49 | PC.NURSE ---
Rosaura RT notified of order for IS.
[2024-01-08 17:56] VITALS: BP 137/90; PULSE 77; RESP 18; TEMP 36.5; O2SAT 99
== END 2024-01-08 17:59 | disposition home or self-care (01) ==
LOC: ANHED 17:41
PROVIDERS: Emergency Provider Physician Assistant; PCP Emergency Medicine
DX: S29.9XXA Unspecified injury of thorax, initial encounter (principal); I50.9 Heart failure, unspecified; J44.9 Chronic obstructive pulmonary disease, unspecified; E03.9 Hypothyroidism, unspecified; E78.5 Hyperlipidemia, unspecified; N28.9 Disorder of kidney and ureter, unspecified; E07.9 Disorder of thyroid, unspecified; Z85.810 Personal history of malignant neoplasm of tongue; Z87.891 Personal history of nicotine dependence; Z90.710 Acquired absence of both cervix and uterus; W18.39XA Other fall on same level, initial encounter
CPT/HCPCS: 71046; 71100; 99283

== ENCOUNTER 2024-01-28 08:53 | Outpatient (CLI) | payer OTHER, SELFPAY ==
--- NOTE | 2024-01-28 13:34 | WPDSIXMINUTE ---
Six Minute Walk Procedure Procedure Performed Pulmonary Stress Test (6 min walk) Six Minute Walk Six Minute Walk: This is a 6 minute walk test. The test was performed and interpreted in accordance with the 2014 ERS/ATS task force guidelines. Findings: The patient's resting room air oxygen saturation measured by pulse oximetry was 97% and heart rate was 79 bpm. Patient ambulated for 366 meters and oxygen saturation remained 96 to 98%. Heart rate at the end of the study was 104 bpm. The patient did not qualify for supplemental oxygen at rest or with ambulation. There are no prior studies for comparison.
--- NOTE | 2024-01-28 13:35 | WPDPFTINT ---
PFT Procedure Performed PFT Procedure Performed Spirometry with Pre/Post Bronchodilator Plethysmography (Lung Vol) Diffusing Cap (DLCO) Flow Vol Loop PFT Interpretation This is a pulmonary function test with pre and post-bronchodilator spirometry, plethysmography and diffusing capacity. The test was performed and results interpreted in accordance with the 2019 and 2005 ATS/ERS Task Force guidelines respectively using the Global Lung Function Initiative-2012 reference equations. Patient demonstrated good effort and cooperation. Reproducibility criteria were met. The quality of the pre bronchodilator spirometry maneuver was Grade A and post bronchodilator spirometry maneuver was Grade A. Findings: Spirometry: There is decreased maximal expiratory airflow at all lung volumes with concave expiratory flow tracing. The contour the inspiratory flow tracing is normal. The pre bronchodilator FVC is 3.77 L, 106% predicted. The pre bronchodilator FEV1 is 2.26 L, 79% predicted. The pre bronchodilator FEV1: FVC ratio 60%. The post bronchodilator FVC is 3.94 L, representing a 5% increase. The post bronchodilator FEV1 is 2.77 L, representing a 22% increase. The post bronchodilator FEV1: FVC ratio 70%. Plethysmography: The total lung capacity is 6.17 L, 121% predicted. The functional residual capacity is 3.69 L, 130% predicted. The residual volume is 2.40 L, 138% predicted. Diffusing capacity: The diffusing capacity unadjusted for hemoglobin and carboxyhemoglobin is 19.7, 85% predicted. The diffusing capacity adjusted for alveolar volume is 3.27, 70% predicted. Impression: There is a mild obstructive abnormality with a normal FEV1. There is significant improvement after inhaling a single dose of albuterol. The lung volumes are normal. The diffusing capacity unadjusted for hemoglobin and carboxyhemoglobin is normal and is mildly decreased when adjusted for alveolar volume. There are no prior studies for comparison
== END 2024-01-28 08:54 | disposition home or self-care (01) ==
PROVIDERS: PCP Emergency Medicine; Visit Provider Internal Medicine Critical Care Medicine
DX: J44.9 Chronic obstructive pulmonary disease, unspecified (principal); R94.2 Abnormal results of pulmonary function studies
CPT/HCPCS: 94060; 94618; 94726; 94729

== ENCOUNTER 2024-03-04 08:54 | Outpatient (CLI) | payer OTHER, SELFPAY ==
[2024-03-04 10:19] LABS: Urine Cotinine POSITIVE
== END 2024-03-04 08:55 | disposition home or self-care (01) ==
LOC: ANHLAB 08:55
PROVIDERS: PCP Emergency Medicine; Visit Provider Nurse Practitioner Family
DX: F17.200 Nicotine dependence, unspecified, uncomplicated (principal)
CPT/HCPCS: 80307

== ENCOUNTER 2024-03-04 09:36 | Emergency (ER) | payer OTHER, SELFPAY ==
[2024-03-04] VITALS (9 sets, daily range): BP systolic 108–117; BP diastolic 81–85; PULSE 69–86; RESP 12–22; TEMP 36.4; O2SAT 97–100
--- NOTE | ~2024-03-04 | XR_ITS ---
EXAMINATION: XR knee LT 3V DATE: 03/04/2024 10:09 INDICATION: Left knee pain. TECHNIQUE: 3 views of left knee including standing views were obtained. COMPARISON: Left knee radiographs 09/04/2023 FINDINGS: Bone alignment is normal. No fracture. Joint spaces are normal. No knee joint effusion. IMPRESSION: 1. Normal left knee. Reviewed, dictated and finalized at location A. IMPRESSION: 1. Normal left knee.
--- NOTE | 2024-03-04 09:50 | ED.EXTPRO ---
HPI - Extremity Problem General Chief complaint: Extremity Problem,Nontraumatic Stated complaint: left knee pain Time Seen by Provider: 03/04/24 09:48 Source: patient Mode of arrival: ambulatory Limitations: other (speech impediment but understandable) History of Present Illness HPI Narrative: Patient presents with acute on chronic left knee pain. She underwent surgical intervention approximately 3 months ago. States it was a washout. This was done with orthopedic surgeon Dr. Gipson. Her next appointment with him is next month. He had recommended she perform certain exercises but she states of the pain is too intense for to be able to do so. She trialed tramadol yesterday which did not help. Has not take anything for pain today. No subsequent injury or trauma. She does note that she will occasionally experience paresthesias in the knee. No fevers. She feels like it might give out. Uses a walker and crutches at home. Related Data Home Medications Medication Instructions Recorded Confirmed tramadol 50 mg tablet 50 mg PO Q6H PRN Pain 06/26/20 01/08/24 gabapentin 100 mg capsule 100 mg PO TID 03/30/21 01/08/24 levothyroxine 75 mcg tablet 50 mcg PO DAILY 03/30/21 01/08/24 (Synthroid) rosuvastatin 10 mg tablet 10 mg PO DAILY 03/30/21 01/08/24 acetaminophen 500 mg tablet 1,000 mg PO PRN PRN Pain 07/23/23 01/08/24 diclofenac sodium 75 mg 75 mg PO DAILY 07/23/23 01/08/24 tablet,delayed release duloxetine 30 mg capsule,delayed 60 mg PO DAILY 07/23/23 01/08/24 release ferrous sulfate 134 mg (27 mg mg 09/18/23 01/08/24 iron) tablet Allergies Allergy/AdvReac Type Severity Reaction Status Date / Time No Known Allergies Allergy Verified 03/04/24 09:37 [facility] Past Medical History Medical History (Updated 03/04/24 @ 10:06 by Melissa Mcguire MD) Chondromalacia, patella Colon cancer screening Congestive heart failure COPD (chronic obstructive pulmonary disease) Hallux valgus Headache, migraine Hyperlipidemia Hypothyroidism Kidney disease Left knee pain Medial meniscus tear Pain of midfoot Right foot pain Thyroid disorder Tobacco dependence Tongue cancer Surgical History Surgical History (Updated 03/04/24 @ 10:04 by Melissa Mcguire MD) H/O arthroscopy of left knee 09/30/23 ([facility]) History of appendectomy History of gastric surgery History of kidney surgery History of mandibular surgery History of skin graft History of tooth extraction all teeth removed. History of total hysterectomy Family History Family History Father Skin cancer Diabetes mellitus Hypertension Heart disease Cerebrovascular accident Thyroid disorder Mother Depression Heart disease Grandparent Family history of malignant neoplasm Other Family history of arthritis Social History Social History Social History: caffeine use Smoking packs per day: 0.75 Smoking cigarettes per day: 15.0 Years smoked: 30 Smoking pack-years: 22.50 Smoking status: Current every day smoker Tobacco type: e-cigarettes/vaping Smoking end date: 09/15/15 Alcohol intake: former Substance use: former Substance use type: marijuana Living arrangements: with family Occupation/Education: occupation 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 HEAD: Normocephalic, atraumatic. EYES: Non injected, non icteric ENT: Nares clear, no rhinorrhea or epistaxis. NECK: Supple. CHEST: Speaking in full sentences. No respiratory distress. HEART: Regular rate and rhythm. . ABDOMEN: Soft, nondistended. EXTREMITIES: Patient able to demonstrate active flexion and extension at affected knee. No tibial or pedal edema. Warm and well pe
[2024-03-04] MEDS: HYDROcodone/acetaminophen (*CRX) 5-325 MG TABLET 1 TAB PO (11:13)
== END 2024-03-04 12:55 | disposition home or self-care (01) ==
PROVIDERS: Emergency Provider Student in an Organized Health Care Education/Training Program; PCP Emergency Medicine
DX: M25.562 Pain in left knee (principal); G89.29 Other chronic pain; I50.9 Heart failure, unspecified; J44.9 Chronic obstructive pulmonary disease, unspecified; E78.5 Hyperlipidemia, unspecified; E03.9 Hypothyroidism, unspecified; Z87.891 Personal history of nicotine dependence; Z90.710 Acquired absence of both cervix and uterus; Z79.891 Long term (current) use of opiate analgesic; Z79.899 Other long term (current) drug therapy
CPT/HCPCS: 73562; 80307; 99283; A9270

== ENCOUNTER 2024-07-06 21:23 | Emergency (ER) | payer OTHER, SELFPAY ==
[2024-07-06 21:41] VITALS: BP 119/89; PULSE 94; RESP 18; TEMP 37; O2SAT 97
--- NOTE | 2024-07-06 21:47 | ED.GENADULT ---
HPI - General Adult General Chief complaint: Skin/Abscess/Foreign Body Stated complaint: Rash Time Seen by Provider: 07/06/24 21:46 Source: patient Mode of arrival: ambulatory Limitations: no limitations History of Present Illness HPI narrative: 49 YEARS OLD WHITE FEMALE CAME TO THE ED WITH BURNING RASH AT THE LEFT GROIN AREA THE LAST FEW DAYS / WEEKS, GETTING WORSE. PATIENT HAD SIMILAR SYMPTOMS UNDER RIGHT BREAST WHICH RESOLVED WITH ANTI FUNGAL TREATMENT. SHE DENIES ANY FEVER, CHILLS, NAUSEA, VOMITING, DIARRHEA, CONSTIPATION OR ABDOMINAL PAIN. Related Data Home Medications Medication Instructions Recorded Confirmed tramadol 50 mg tablet 50 mg PO Q6H PRN Pain 06/26/20 05/26/24 gabapentin 100 mg capsule 100 mg PO TID 03/30/21 05/26/24 levothyroxine 75 mcg tablet 50 mcg PO DAILY 03/30/21 05/26/24 (Synthroid) rosuvastatin 10 mg tablet 10 mg PO DAILY 03/30/21 05/26/24 diclofenac sodium 75 mg 75 mg PO DAILY 07/23/23 05/26/24 tablet,delayed release duloxetine 30 mg capsule,delayed 60 mg PO DAILY 07/23/23 05/26/24 release ferrous sulfate 134 mg (27 mg mg 09/18/23 05/26/24 iron) tablet Allergies Allergy/AdvReac Type Severity Reaction Status Date / Time No Known Allergies Allergy Verified 03/22/24 11:54 Review of Systems Review of Systems: All systems reviewed & are unremarkable except as noted in HPI and below PMFSH Past Medical History Medical History Chondromalacia, patella Colon cancer screening Congestive heart failure COPD (chronic obstructive pulmonary disease) Hallux valgus Headache, migraine Hyperlipidemia Hypothyroidism Kidney disease Left knee pain Medial meniscus tear Pain of midfoot Right foot pain Thyroid disorder Tobacco dependence Tongue cancer Surgical History Surgical History H/O arthroscopy of left knee 09/30/23 ([facility]) History of appendectomy History of gastric surgery History of kidney surgery History of mandibular surgery History of skin graft History of tooth extraction all teeth removed. History of total hysterectomy Family History Family History Father Skin cancer Diabetes mellitus Hypertension Heart disease Cerebrovascular accident Thyroid disorder Mother Depression Heart disease Grandparent Family history of malignant neoplasm Other Family history of arthritis Social History Social History Social History: caffeine use Smoking packs per day: 0.75 Smoking cigarettes per day: 15.0 Years smoked: 30 Smoking pack-years: 22.50 Smoking status: Current every day smoker Tobacco type: e-cigarettes/vaping Smoking end date: 09/15/15 Alcohol intake: former Substance use: former Substance use type: marijuana Living arrangements: with family Occupation/Education: occupation 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 ABDOMEN: SOFT, NONTENDER, NO ORGANOMEGALY, QUIET BOWEL SOUNDS VASCULAR: NORMAL PERIPHERAL PULSES, NORMAL CAPILLARY REFILL. Course Vital Signs Vital signs: Vital Signs Temperature 37.0 C 07/06/24 21:41 Pulse Rate 94 07/06/24 21:41 Respiratory Rate 18 07/06/24 21:41 Blood Pressure 119/89 07/06/24 21:41 Pulse Oximetry 97 07/06/24 21:41 Oxygen Delivery
--- NOTE | 2024-07-06 22:08 | PC.NURSE ---
Patient given antifungal cream while in facility for some itching relief. ERP aware.
== END 2024-07-06 22:11 | disposition home or self-care (01) ==
LOC: CHSED 22:05
PROVIDERS: Emergency Provider Emergency Medicine; PCP Emergency Medicine
DX: B37.2 Candidiasis of skin and nail (principal); I50.9 Heart failure, unspecified; E03.9 Hypothyroidism, unspecified; J44.9 Chronic obstructive pulmonary disease, unspecified; F17.210 Nicotine dependence, cigarettes, uncomplicated
CPT/HCPCS: 99283

== ENCOUNTER 2024-10-10 00:14 | Emergency (ER) | payer OTHER, SELFPAY ==
--- NOTE | ~2024-10-10 | XR_ITS ---
Right ankle Technique: AP, oblique, and lateral views were obtained. Clinical History: Injury Findings: No acute fracture or dislocation is seen. Osseous alignment is anatomic. Ankle mortise and other visualized joint spaces are preserved. Soft tissues are otherwise unremarkable. Impression: Unremarkable right ankle. Reviewed, dictated and finalized at [facility]. [employer] Impression: Unremarkable right ankle.
[2024-10-10 00:16] VITALS: BP 136/85; PULSE 85; RESP 18; TEMP 36.6; O2SAT 97
[2024-10-10] MEDS: IBUPROFEN 600 MG TABLET PO (00:29)
--- NOTE | 2024-10-10 00:32 | ED.LOWEXIN ---
HPI - Extremity Injury (Lower) General Chief Complaint: Extremity Injury, Lower Stated Complaint: R ankle Injury Source: patient Mode of arrival: ambulatory Limitations: no limitations History of Present Illness HPI Narrative: this is a 49-year-old female that injured her right ankle she slept in a ditch earlier this afternoon, has mild swelling with no bruising has good range of motion although limited because of pain and tenderness. complaint: ankle injury Onset (ago): hour(s) Injury: Right: ankle ( pain with palpation) Type of Injury: inversion Place: street/outdoors Severity: moderate Severity scale (1-10): 6 Relieving factors: immobilization Related Data Home Medications ?Medication ?Instructions ?Recorded ?Confirmed ?Last Taken ?Type tramadol 50 mg tablet 50 mg PO Q6H PRN Pain 06/26/20 07/26/24 07/06/24 History gabapentin 100 mg capsule 100 mg PO TID 03/30/21 07/26/24 07/06/24 History levothyroxine 75 mcg tablet 50 mcg PO DAILY 03/30/21 07/26/24 07/06/24 History (Synthroid) rosuvastatin 10 mg tablet 10 mg PO DAILY 03/30/21 07/26/24 07/06/24 History diclofenac sodium 75 mg 75 mg PO DAILY 07/23/23 07/26/24 07/06/24 History tablet,delayed release duloxetine 30 mg capsule,delayed 60 mg PO DAILY 07/23/23 07/26/24 07/06/24 History release ferrous sulfate 134 mg (27 mg 134 mg PO DAILY 09/18/23 07/26/24 07/06/24 History iron) tablet Allergies Allergy/AdvReac Type Severity Reaction Status Date / Time No Known Allergies Allergy Verified 07/26/24 14:20 Review of Systems Review of Systems: All systems reviewed & are unremarkable except as noted in HPI and below PMFSH Past Medical History Medical History Pain of midfoot Hallux valgus Tobacco dependence Right foot pain Colon cancer screening Thyroid disorder Kidney disease Hyperlipidemia Headache, migraine COPD (chronic obstructive pulmonary disease) Congestive heart failure Hypothyroidism Chondromalacia, patella Medial meniscus tear Tongue cancer Left knee pain Surgical History Surgical History H/O arthroscopy of left knee 09/30/23 ([facility]) History of total hysterectomy History of skin graft History of tooth extraction all teeth removed. History of appendectomy History of kidney surgery History of gastric surgery History of mandibular surgery Family History Family History Father Skin cancer Diabetes mellitus Hypertension Heart disease Cerebrovascular accident Thyroid disorder Mother Depression Heart disease Grandparent Family history of malignant neoplasm Other Family history of arthritis Social History Social History Social History: caffeine use Smoking packs per day: 0.75 Smoking cigarettes per day: 15.0 Years smoked: 30 Smoking pack-years: 22.50 Smoking status: Current every day smoker Tobacco type: e-cigarettes/vaping Smoking end date: 09/15/15 Alcohol intake: former Substance use: former Substance use type: marijuana Living arrangements: with family Occupation/Education: occupation 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 Gender identity (if verbalized by the patient): Female Spiritual care concerns: No Exam Const: General: healthy appearing and no acute distress Nutritional Appearance: well nourished Orientation/consciousness: patient oriented x3 Neck: Neck: normal visual inspection Chest: Chest palpation & inspection: normal inspection of the chest Resp: Effort & Inspection: normal respiratory effort Auscultation: clear to auscultation bilaterally Cardio: Rate: regular rate Rhythm: regular rhythm GI: GI Palp: Yes Soft to palpation Auscultation: normal bowel sounds Skin: General skin exam: normal color Rashes: no rashes Wounds: no wounds Neuro: General: moves all extremities Extrem: Other: Tenderness lateral aspect of her right ankle palpation Course Course Emergency Course: patient received a dose of p.o. Motrin x-ray obtained reviewed no acute fractures. Vital Signs Vital signs: Vital Signs Temperature 36.6 C 10/10/24 00:16 Pulse Rate 85 10/10/24 00:16 Respiratory Rate 18 10/10/24 00:16 Blood Pressure 136/85 10/10/24 00:16 Pulse Oximetry 97 10/10/24 00:16 Oxygen Delivery Room Air 10/10/24 00:16 Temperature 36.6 C 10/10/24 00:16 Pulse Rate 85 10/10/24 00:16 Respiratory Rate 18 10/10/24 00:16 Blood Pressure 136/85 10/10/24 00:16 Pulse Oximetry 97 10/10/24 00:16 Oxygen Delivery Room Air 10/10/24 00:16 Critical Care Time Critical Care Time Critical Care Time: No Discharge Plan Discharge Clinical Impression: Right ankle sprain Qualifiers: Encounter type: initial encounter Involved ligament of ankle: unspecified ligament Qualified Code(s): S93.401A - Sprain of unspecified ligament of right ankle, initial encounter Patient Disposition: Home, Self-Care Condition: Stable Instructions: Antibiotic Form, Ankle Sprain (ED) Additional Instructions: advised patient to take Tylenol or Motrin as needed follow-up with primary if symptoms persist or worsen. Patient Language: Greenlandic Prescriptions: No Action clotrimazole-betamethasone 1-0.05 % cream 1 applic topical BID 14 Days Qty: 45 0RF tramadol 50 mg tablet 50 mg PO Q6H PRN (Reason: Pain) levothyroxine [Synthroid] 75 mcg tablet 50 mcg PO DAILY gabapentin 100 mg capsule 100 mg PO TID rosuvastatin 10 mg tablet 10 mg PO DAILY albuterol sulfate 2.5 mg /3 mL (0.083 %) solution for nebulization 2.5 mg inhalation Q4-6H PRN (Reason: shortness of breath or wheezing) 30 Days Qty: 180 5RF diclofenac sodium 75 mg tablet,delayed release (DR/EC) 75 mg PO DAILY duloxetine 30 mg capsule,delayed release(DR/EC) 60 mg PO DAILY ferrous sulfate 134 mg (27 mg iron) Tablet 134 mg PO DAILY phenazopyridine [Pyridium] 200 mg tablet 200 mg PO TID Qty: 6 0RF ibuprofen 600 mg tablet 600 mg PO TID PRN (Reason: pain) Qty: 30 0RF acetaminophen 500 mg capsule 1,000 mg PO Q6H PRN (Reason: pain) Qty: 30 0RF budesonide 0.5 mg/2 mL suspension for nebulization 0.5 mg inhalation BID 30 Days Qty: 120 5RF Rx Instructions: Take at least 10 hours apart. Rinse and spit after use. revefenacin 175 mcg/3 mL solution for nebulization 175 mcg inhalation DAILY 30 Days Qty: 90 5RF Serevent Diskus 50 mcg/dose blister with device 1 inh inhalation Q12H 30 Days Qty: 60 5RF Follow-up/Referrals: Damon Valenzuela MD [Primary Care Provider] -
[2024-10-10 00:47] VITALS: BP 139/87; PULSE 80; RESP 20; O2SAT 99
== END 2024-10-10 00:47 | disposition home or self-care (01) ==
PROVIDERS: Emergency Provider Emergency Medicine; PCP Emergency Medicine
DX: S93.401A Sprain of unspecified ligament of right ankle, initial encounter (principal); E03.9 Hypothyroidism, unspecified; I50.9 Heart failure, unspecified; J44.9 Chronic obstructive pulmonary disease, unspecified; F17.210 Nicotine dependence, cigarettes, uncomplicated
CPT/HCPCS: 73610; 99283; A9270

== ENCOUNTER 2024-11-30 21:49 | Emergency (ER) | payer OTHER, SELFPAY ==
--- NOTE | ~2024-11-30 | XR_ITS ---
HISTORY: DORSAL SURFACE PAIN X 3 WEEKS/NO TRAUMA COMPARISON: None TECHNIQUE: 3 views of the left foot were performed FINDINGS: No acute fracture or dislocation is appreciated. Hallux valgus deformity is identified. Medial prominence of the first metatarsal head is present. Otherwise, no significant degenerative disease is noted. The base of the fifth metatarsal is intact. No calcaneal spur is noted. Trace soft tissue swelling of the forefoot is present. IMPRESSION: Hallux valgus deformity with medial prominence of the first metatarsal head and trace so ft tissue swelling of the forefoot. Reviewed, dictated and finalized at location A. IMPRESSION: Hallux valgus deformity with medial prominence of the first metata rsal head and trace soft tissue swelling of the forefoot.
--- NOTE | ~2024-11-30 | XR_ITS ---
HISTORY: DORSAL FOOT PAIN/PT DENIES ANKLE PAIN COMPARISON: None TECHNIQUE: 3 views of the left ankle were performed FINDINGS: No acute fracture or dislocation. No significant soft tissue swelling. The ankle mortise is preserved. Bone mineralization is age-appropriate. IMPRESSION: No acute fracture or dislocation within the left ankle, as detailed above. Reviewed, dictated and finalized at location A. IMPRESSION: No acute fracture or dislocation within the left ankle, as detaile d above.
[2024-11-30 21:49] VITALS: BP 134/93; PULSE 70; RESP 20; TEMP 36.4; O2SAT 100
--- OUTSIDE RECORDS SUMMARY | 2024-11-30 21:52 | XMS_ITS | Continuity of Care Document ---
Author Organization [facility] Address [address] [place] [address] [place] [address] Phone Care Team Providers Care Technical Services Assistant Name Role Phone Damon Valenzuela MD Unavailable Unavailable Allergies, Adverse Reactions, Alerts Substance Reaction Status Criticality No Known Allergies Active No Inform ation Medications Medication Instructions Dosage Effective Dates (start - stop) Status Comments fluticasone propionate 110 mcg/actuation HFA aerosol inhaler inhale 1 puff by inhalation route 2 times every day 110 MCG - Active Synthroid 88 mcg tablet take 1 tablet by oral route every day 88 MCG - Active lidocaine 5 % topical patch apply 1 patch by transdermal route every day (May wear up to 12hours.) as needed 1.00 patch - Active tramadol 50 mg tablet take 1 tablet by oral route every 6 hours as needed as needed 50 MG - Active PRn for pain, avoid driving or operate machines albuterol sulfate HFA 90 mcg/actuation aerosol inhaler inhale 1 puff by inhalation route every 4 - 6 hours as needed as needed 1 puff - Active PRN for sob Neurontin 100 mg capsule take 1 Capsule by oral route 3 times every day 100 MG - Active avoid driving or operate machines Crestor 10 mg tablet take 1 tablet by oral route every day 10 MG - Active Cymbalta 60 mg capsule,delayed release take 1 capsule by oral route every day 60 MG - Active Procedures Procedure Date OFFICE/OUTPATIENT VISIT, EST OFFICE/OUTPATIENT VISIT, EST OFFICE/OUTPATIENT VISIT, EST OFFICE/OUTPATIENT VISIT, EST OFFICE/OUTPATIENT VISIT, EST OFFICE/OUTPATIENT VISIT, EST PREV VISIT, EST, AGE 40-64 OFFICE/OUTPATIENT VISIT, EST OFFICE/OUTPATIENT VISIT, EST OFFICE/OUTPATIENT VISIT, EST OFFICE/OUTPATIENT VISIT, EST OFFICE/OUTPATIENT VISIT, EST OFFICE/OUTPATIENT VISIT, EST OFFICE/OUTPATIENT VISIT, EST OFFICE/OUTPATIENT VISIT, EST OFFICE/OUTPATIENT VISIT, EST OFFICE/OUTPATIENT VISIT, EST PREV VISIT, EST, AGE 40-64 OFFICE/OUTPATIENT VISIT, EST OFFICE/OUTPATIENT VISIT, EST OFFICE/OUTPATIENT VISIT, EST OFFICE/OUTPATIENT VISIT, EST PREV VISIT, EST, AGE 40-64 OFFICE/OUTPATIENT VISIT, EST OFFICE/OUTPATIENT VISIT, EST OFFICE/OUTPATIENT VISIT, EST OFFICE/OUTPATIENT VISIT, EST PREV VISIT, EST, AGE 40-64 OFFICE/OUTPATIENT VISIT, EST OFFICE/OUTPATIENT VISIT, EST OFFICE/OUTPATIENT VISIT, EST OFFICE/OUTPATIENT VISIT, EST OFFICE/OUTPATIENT VISIT, EST OFFICE/OUTPATIENT VISIT, EST PREV VISIT, EST, AGE 40-64 OFFICE/OUTPATIENT VISIT, EST OFFICE/OUTPATIENT VISIT, EST OFFICE/OUTPATIENT VISIT, EST OFFICE/OUTPATIENT VISIT, EST OFFICE/OUTPATIENT VISIT, EST OFFICE/OUTPATIENT VISIT, EST OFFICE/OUTPATIENT VISIT, EST OFFICE/OUTPATIENT VISIT, EST OFFICE/OUTPATIENT VISIT, EST PREV VISIT, NEW, AGE 40-64 Advance Directives Directive Yes / No Effective Date File Name No Information Encounters Encounter Description Practice Location Reason(s) For Visit Diagnoses Date Provider Providers Copied on Encounter OFFICE/OUTPA TIENT VISIT, [facility], [address], [place], [place], [address], [place] tel:[phone] [facility] cough1 (chief complaint) incontinen ce1 (chief complaint) rash1 (chief complaint) Stress incontinenceAcute bronchitisDisorder of the skinTinea corporis 4 Nicolas Jose. [address], [place], [place], [address] , [place]. tel:[phone] [facility], [address], [place], [place], [address], [place] tel:[phone] [facility] No Information 4 Nicolas Murphy [address], [place], [place], [address] , [place]. tel:[phone] OFFICE/OUTPA TIENT VISIT, [facility], [address], [place], [place], [address], [place] tel:[phone] [facility] back pain1 (chief complaint) rash1 (chief complaint) thyroid1 (chief complaint) Chronic pain syndromeHypothyroid ismTinea corporis 4 Nicolas Murphy [address], [place], [place], [address] , [place]. tel:[phone] OFFICE/OUTPA TIENT VISIT, [facility], [address], [place], [place], [address], [place] tel:[phone] [facility] back pain1 (chief complaint) Chronic pain syndrome 4 Nicolas Murphy [address], [place], [place], [address] , [place]. tel:[phone] [facility], [address], [place], [place], [address], [place] tel:[phone] [facility] No Information 4 Nicolas Murphy [address], [place], [place], [address] , [place]. tel:[phone] OFFICE/OUTPA TIENT VISIT, EST [facility], [address], [place], [place], [address], [place] tel:[phone] [facility] pain (chief complaint) anxiety1 (chief complaint) HLP (chief complaint) weight loss1 (chief complaint) asthma1 (chief complaint) Generalized Anxiety DisorderAnterior chest-wall painChronic pain syndromeAbnormal weight lossEncntr screen mammogram for malignant neoplasm of breastMixed hyperlipidemiaMild intermittent asthma, uncomplicated 4 Nicolas Murphy [address], [place], [place], [address] , [place]. tel:[phone] OFFICE/OUTPA TIENT VISIT, [facility], [address], [place], [place], [address], [place] tel:[phone] [facility] thyroid1 (chief complaint) pain (chief complaint) depression 1 (chief complaint) chest pain1 (chief complaint) Anterior chest-wall painIron deficiencyHypothyro idismGeneralized Anxiety DisorderOther spondylosis, lumbar region 3 Nicolas Murphy [address], [place], [place], [address] , [place]. tel:[phone] OFFICE/OUTPA TIENT VISIT, EST [facility], [address], [place], [place], [address], [place] tel:[phone] [facility] ferritin1 (chief complaint) ferritin1 (chief complaint) glucose1 (chief complaint) HLP (chief complaint) sick (chief complaint) back pain1 (chief complaint) Iron deficiencyHyperglyc emiaFatigueAnterior chest-wall painAcute sinusitisInconclusi ve mammogram 3 Nicolas Murphy [address], [place], [place], [address] , [place]. tel:[phone] PREV VISIT, EST, AGE 40-64 [facility], [address], [place], [place], [address], [place] tel:[phone] [facility] Medicine physical (chief complaint) Encounter for general adult medical examination without abnormal findings 3 Nicolas Jose. [address], [place], [place], [address] , [place]. tel:[phone] OFFICE/OUTPA TIENT VISIT, [facility], [address], [place], [place], [address], [place] tel:[phone] [facility] UTI1 (chief complaint) Acute cystitis without hematuria 3 Nicolas Murphy [address], [place], [place], [address] , [place]. [phone] OFFICE/OUTPA TIENT VISIT, [facility], [address], [place], [place], [address], [place] tel:[phone] [facility] knee pain1 (chief complaint) back pain1 (chief complaint) Pain in left kneeOther spondylosis, lumbar region 3 Nicolas Murphy [address], [place], [place], [address] , [place]. tel:[phone] OFFICE/OUTPA TIENT VISIT, [facility], [address], [place], [place], [address], [place] tel:[phone] [facility] back pain1 (chief complaint) HLP (chief complaint) ankle 1 (chief complaint) anxiety1 (chief complaint) Abnormal weight gainChronic pain syndromePain in left ankleMixed hyperlipidemiaEncou nter for oth screening for malignant neoplasm of breastEncounter for screening for malignant neoplasm of colon 3 Nicolas Murphy [address], [place], [place], [address] , [place]. [phone] OFFICE/OUTPA TIENT VISIT, [facility], [address], [place], [place], [address], [place] tel:[phone] [facility] ankle pain1 (chief complaint) back pain1 (chief complaint) Pain in left ankleEdemaOther spondylosis, lumbar region 3 Nicolas Jose. [address], [place], [place], [address] , [place]. tel:[phone] OFFICE/OUTPA TIENT VISIT, [facility], [address], [place], [place], [address], [place] tel:[phone] [facility] back pain1 (chief complaint) thyroid1 (chief complaint) weight gain1 (chief complaint) Chronic pain syndromeHypothyroid ismOther spondylosis, lumbar regionAbnormal weight gain 3 Nicolas Jose. [address], [place], [place], [address] , [place]. tel:[phone] OFFICE/OUTPA TIENT VISIT, [facility], [address], [address], [place] tel:[phone] [facility] thyroid (chief complaint) back pain1 (chief complaint) Other spondylosis, lumbar regionHypothyroidis mChronic pain syndrome 2 Nicolas Jose. [address], [place], [place], [address] , [place]. tel:[phone] OFFICE/OUTPA TIENT VISIT, [facility], [address], [place], [place], [address], [place] tel:[phone] [facility] back pain1 (chief complaint) edema1 (chief complaint) anxiety1 (chief complaint) Chronic pain syndromeEdemaGenera lized Anxiety Disorder 2 Nicolas Jose. [address], [place], [place], [address] , [place]. tel:[phone] OFFICE/OUTPA TIENT VISIT, [facility], [address], [place], [place], [address], [place] tel:[phone] [facility] back pain1 (chief complaint) UTI1 (chief complaint) thyroid1 (chief complaint) Acute cystitis without hematuriaLumbago with sciatica, right sideHypothyroidism 2 Valenzuela Damon. [address], [place], [place], [address] , [place]. tel:[phone] OFFICE/OUTPA TIENT VISIT, EST [facility], [address], [place], [place], [address], [place] tel:[phone] [facility] back pain1 (chief complaint) Acute cystitis without hematuriaLumbago with sciatica, right side May- 2 Valenzuela Damon. [address], [place], [place], [address] , [place]. tel:[phone] OFFICE/OUTPA TIENT VISIT, EST [facility], [address], [place], [place], [address], [place] tel:[phone] [facility] Medicine UTI1 (chief complaint) ferritin1 (chief complaint) thyroid (chief complaint) HLP (chief complaint) Acute cystitis without hematuriaIron deficiencyMixed hyperlipidemiaHypot hyroidismEncounter for oth screening for malignant neoplasm of breast 2 Valenzuela Damon. [address], [place], [place], [address] , [place]. tel:[phone] PREV VISIT, EST, AGE 40-64 [facility], [address], [place], [place], [address], [place] tel:[phone] [facility] Medicine physical (chief complaint) Encounter for general adult medical examination without abnormal findings 2 Nicolas Damon. [address], [place], [place], [address] , [place]. tel:[phone] OFFICE/OUTPA TIENT VISIT, EST [facility], [address], [place], [place], [address], [place] tel:[phone] [facility] Medicine anxiety1 (chief complaint) HLP (chief complaint) back pain1 (chief complaint) Generalized Anxiety DisorderChronic pain syndromeHyperlipide kevin 2 Nicolas Damon. [address], [place], [place], [address] , [place]. [phone] OFFICE/OUTPA TIENT VISIT, EST [facility], [address] [place], [address], [place] tel:[phone] [facility] pain (chief complaint) anxiety1 (chief complaint) Chronic pain syndromeGeneralized Anxiety Disorder 2 Nicolas Murphy [address], [place], [place], [address] , [place]. [phone] OFFICE/OUTPA TIENT VISIT, EST [facility], [address] [place] [place], [address], [place] tel:[phone] [facility] hematuria1 (chief complaint) pain1 (chief complaint) depression 1 (chief complaint) Chronic pain syndromeHematuriaDe pression 1 Nicolas Murphy [address], [place], [place], [address] , [place]. [phone] OFFICE/OUTPA TIENT VISIT, EST [facility], [address] [place] [place], [address], [place] tel:[phone] [facility] HLP (chief complaint) hematuria1 (chief complaint) low ferritin1 (chief complaint) thyroid1 (chief complaint) pain (chief complaint) weight gain1 (chief complaint) HyperlipidemiaIron deficiency anemia, unspecifiedHypothyr oidismVitamin D deficiency, unspecifiedUrinary tract infectionChronic pain syndromeAbnormal weight gain 1 Nicolas Murphy [address], [place], [place], [address] , [place]. [phone] PREV VISIT, EST, AGE 40-64 [facility], [address], [address], [place] tel:[phone] [facility] physical (chief complaint) Encounter for general adult medical examination without abnormal findings 1 Nicolas Murphy [address], [place], [place], [address] , [place]. tel:[phone] OFFICE/OUTPA TIENT VISIT, [facility], [address], [place], [address], [place] tel:[phone] [facility] pain1 (chief complaint) fatigue1 (chief complaint) Chronic pain syndromeFatigue 1 Nicolas Murphy [address], [place], [place], [address] , [place]. tel:[phone] OFFICE/OUTPA TIENT VISIT, [facility], [address], [place], [place], [address], [place] tel:[phone] [facility] pain (chief complaint) HLP (chief complaint) fatigue1 (chief complaint) HyperlipidemiaChron ic pain syndromeEncounter for oth screening for malignant neoplasm of breastFatigue 1 Nicolas Murphy [address], [place], [place], [address] , [place]. tel:[phone] OFFICE/OUTPA TIENT VISIT, [facility], [address], [place], [place], [address], [place] tel:[phone] [facility] HLP (chief complaint) anemia1 (chief complaint) back pain1 (chief complaint) fatigue1 (chief complaint) Iron deficiency anemia, unspecifiedHyperlip idemiaChronic pain syndromeFatigue 0 Nicolas Murphy [address], [place], [place], [address] , [place]. [phone] OFFICE/OUTPA TIENT VISIT, [facility], [address], [place], [place], [address], [place] tel:[phone] [facility] HLP (chief complaint) anemia1 (chief complaint) D (chief complaint) fatigue1 (chief complaint) FatigueHypothyroidi smIron deficiency anemiaVitamin D deficiency, unspecifiedHyperlip idemia 0 Nicolas Murphy [address], [place], [place], [address] , [place]. tel:[phone] Referring Provider: [address], [place], [place], [address]. tel:[phone] PREV VISIT, EST, AGE 40-64 [facility], [address], [place], [place], [address], [place] tel:[phone] [facility] physical (chief complaint) Encntr for general adult medical exam w/o abnormal findings 0 Nicolas Jose. [address], [place], [place], [address] , [place]. tel:[phone] Referring Provider: Tico Guadarrama [address], [place], [place], [address]. tel:[phone] OFFICE/OUTPA TIENT VISIT, [facility], [address], [place], [place], [address], [place] tel:[phone] [facility] back pain1 (chief complaint) thyroid1 (chief complaint) HypothyroidismChron ic pain syndrome 0 Nicolas Jose. [address], [place], [place], [address] , [place]. tel:[phone] Referring Provider: Tico Guadarrama [address], [place], [place], [address]. tel:[phone] OFFICE/OUTPA TIENT VISIT, [facility], [address], [place], [place], [address], [place] tel:[phone] [facility] Hematuria1 (chief complaint) back pain1 (chief complaint) throat CA (chief complaint) skin1 (chief complaint) Chronic pain syndromeHematuriaMa lignant neoplasm of tongue, unspecifiedCellulit is of left upper limb 0 Nicolas Jose. [address], [place], [place], [address] , [place]. tel:[phone] Referring Provider: Tico Guadarrama [address], [place], [place], [address]. tel:[phone] OFFICE/OUTPA TIENT VISIT, [facility], [address], [place], [place], [address], [place] [phone] [facility] Medicine hematuria1 (chief complaint) back pain1 (chief complaint) skin1 (chief complaint) HematuriaChronic pain syndromeCellulitis of left upper limbFlushing 9 Nicloas Jose. [address], [place], [place], [address] , [place]. tel:[phone] Referring Provider: Tico Guadarrama [address], [place], [place], [address]. tel:[phone] OFFICE/OUTPA TIENT VISIT, [facility], [address], [place], [place], [address], [place] tel:[phone] [facility] hematuria1 (chief complaint) back pain1 (chief complaint) thyroid1 (chief complaint) HematuriaHypothyroi dismChronic pain syndromeIrregular period 9 Nicolas Jose. [address], [place], [place], [address] , [place]. tel:[phone] Referring Provider: Tico Guadarrama [address], [place], [place], [address]. tel:[phone] OFFICE/OUTPA TIENT VISIT, [facility], [address], [place], [place], [address], [place] tel:[phone] [facility] hematuria1 (chief complaint) hypothyroi dism1 (chief complaint) back pain1 (chief complaint) HematuriaHypothyroi dismChronic pain syndrome 9 Nicolas Jose. [address], [place], [place], [address] , [place]. [phone] Referring Provider: Tico Guadarrama [address], [place], [place], [address]. tel:[phone] OFFICE/OUTPA TIENT VISIT, [facility], [address], [place], [place], [address], [place] tel:[phone] [facility] Medicine thyroid1 (chief complaint) low iron1 (chief complaint) knee pain1 (chief complaint) back pain1 (chief complaint) HypothyroidismIron deficiency anemia, unspecifiedChronic pain syndromePain in left kneeHematuria 9 Nicolas Murphy [address], [place], [place], [address] , [place]. [phone] Referring Provider: Tico Guadarrama [address], [place], [address]. tel:[phone] PREV VISIT, EST, AGE 40-64 [facility], [address], [place], [place], [address], [place] tel:[phone] [facility] Physical (chief complaint) Encntr for general adult medical exam w/o abnormal findings 9 Nicolas Murphy [address], [place], [address] , [place]. [phone] Referring Provider: Tico Guadarr[address], [place], [place], [address]. tel:[phone] OFFICE/OUTPA TIENT VISIT, EST [facility], [address], [place], [place], [address], [place] tel:[phone] [facility] back pain1 (chief complaint) COPD (chief complaint) malnutriti on1 (chief complaint) Chronic pain syndromeEmphysemaDy sphagia Fe 9 Nicolas [address], [place], [place], [address] , [place]. [phone] Referring Provider: Tico Guadarrama [address], [place], [place], [address]. tel:[phone] OFFICE/OUTPA TIENT VISIT, EST [facility], [address], [place], [place], [address], [place] tel:[phone] [facility] thyroid1 (chief complaint) Anemia1 (chief complaint) LBP1 (chief complaint) COPD1 (chief complaint) EmphysemaHypothyroi dismAnemiaChronic pain syndrome 8 Valenzuela Damon. [address], [place], [place], [address] , [place]. tel:[phone] Referring Provider: Tico Guadarrama [address], [place], [place], [address]. tel:[phone] OFFICE/OUTPA TIENT VISIT, [facility], [address], [place], [place], [address], [place] tel:[phone] [facility] back pain1 (chief complaint) SOB1 (chief complaint) anemia1 (chief complaint) EmphysemaHypothyroi dismAnemiaChronic pain syndromeHematuria 8 Nicolas Jose. [address], [place], [place], [address] , [place]. tel:[phone] Referring Provider: Tico Guadarrama [address], [place], [place], [address]. tel:[phone] OFFICE/OUTPA TIENT VISIT, [facility], [address], [place], [place], [address], [place] tel:[phone] [facility] HYpothyroi dism1 (chief complaint) back pain1 (chief complaint) hematuria1 (chief complaint) copd1 (chief complaint) EmphysemaHypothyroi dismChronic pain syndromeAnemia 8 Nicolas Jose. [address], [place], [place], [address] , [place]. tel:[phone] Referring Provider: Tico Guadarrama [address], [place], [place], [address]. tel:[phone] OFFICE/OUTPA TIENT VISIT, [facility], [address], [place], [place], [address], [place] tel:[phone] [facility] back pain1 (chief complaint) sob1 (chief complaint) thyroid (chief complaint) hematuria1 (chief complaint) EmphysemaHypothyroi dismHematuriaChroni c pain syndromeAnemia 0 201 8 Nicolas Murphy [address], [place], [place], [address] , [place]. tel:[phone] Referring Provider: Tico Guadarrama [address], [place], [place], [address]. tel:[phone] OFFICE/OUTPA TIENT VISIT, [facility], [address], [place], [place], [address], [place] tel:[phone] [facility] sob1 (chief complaint) hypothyroi dism1 (chief complaint) anemia1 (chief complaint) back pain1 (chief complaint) EmphysemaAnemiaHypo thyroidismChronic pain syndrome 8 Nicolas Jose. [address], [place], [address] , [place]. tel:[phone] Referring Provider: Tico Guadarrama [address], [place], [place], [address]. tel:[phone] OFFICE/OUTPA TIENT VISIT, [facility], [address], [place], [address], [place] [phone] [facility] Anemia1 (chief complaint) low thyroid1 (chief complaint) sob1 (chief complaint) back pain. 1 (chief complaint) HypothyroidismAnemi aLumbagoDyspnea 8 Nicolas Jose. [address], [place], [place], [address] , [place]. tel:[phone] Referring Provider: Tico Guadarrama [address], [place], [place], [address]. tel:[phone] OFFICE/OUTPA TIENT VISIT, [facility], [address], [place], [place], [address], [place] tel:[phone] [facility] hematuria1 (chief complaint) thyroid (chief complaint) anemia1 (chief complaint) back pain1 (chief complaint) HematuriaHypothyroi dismIron deficiency anemia, unspecifiedLumbago 8 Nicolas Murphy [address], [place], [place], [address] , [place]. tel:[phone] Referring Provider: Tico Guadarrama [address], [place], [place], [address]. tel:[phone] OFFICE/OUTPA TIENT VISIT, EST [facility], [address], [place], [place], [address], tel:[phone] [facility] chronic pain (chief complaint) sob (chief complaint) shoudler pain1 (chief complaint) DyspneaLumbagoPain in left shoulder Nov-0 8 Nicolas Jose. [address], [place], [place], [address] , [place]. tel:[phone] Referring Provider: Damon Valenzuela, [address] [place] [address] A, [place], [place], [address]. tel:[phone] PREV VISIT, NEW, AGE 40-64 [facility], [address], [place], [place], [address], [place] tel:[phone] [facility] Medicine Physical (chief complaint) Encntr for general adult medical exam w/o abnormal findings 7 Nicolas Jose. [address], [place], [place], [address] , [place]. tel:[phone] Referring Provider: Tico Guadarrama [facility] A, [place], [place], [address]. tel:[phone] Family History Family Member Type Diagnosis Age At Onset Father Problem (finding) Hypertension Mother Problem (finding) of lung Ca 65 Father Problem (finding) uknown cancer Mother Problem (finding) Payers Payer name Insurance type Covered constitution party ID Authoriza tion(s) No Information Social History Type Description Quantity Date Captured Comments Alcohol Use Details No Caffeine Use Details Unknown Tobacco Use Status Ex-cigarette smoker 024 Smoking Status Former smoker Sex Female Vital Signs Date / Time: Height Weight BMI Pulse Rate Blood Pressure Temperature Respiratory Rate Body Surface Area Head Circumference BMI percentile Pulse Ox Inhaled Ox 2:55 PM 64.00 in 192.40 lbs 33.0 2 kg/m eter (2) 79 /min 110/70 mm[Hg] 97.7 F 16 /min Chief Complaint And Reason For Visit From encounter dated '08/31/2024 14:55'. cough1 (chief complaint). Description: Pt c/o intermittent productive and dry cough for 4 weeks Pt denies any sob Pt denies any fever, chill, sore throat, etc incontinence1 (chief complaint). Description: pt c/o stress incontinence for several months Pt denies any urinary symptoms. pt only notices leakage during coughing. Pt denies any frequency, urgency. rash1 (chief complaint). Description: Pt c/o chronic burning and painful rash around lower abdomen due to extra fold of skin. Pt failed multiple anti fungal cream Plan Of Treatment Date Type Action Status Goal Tobacco cessation counseling completed Goal Tobacco cessation counseling completed Goal Special diet education compl eted Goal Special diet education compl eted Goal Tobacco cessation counseling completed Goal Tobacco cessation counseling completed Goal Prescribed dietary intake co mpleted Goal Special diet education compl eted Goal Tobacco cessation counseling completed Goal Special diet education compl eted Goal Tobacco cessation counseling completed Goal Tobacco cessation counseling completed Goal Special diet education compl eted Goal Special diet education compl eted Goal Special diet education compl eted Referral Ordered: Vin Pérez -[facility]opathic & Osteopathic Physicians : Plastic Surgery (related to Disorder of the skin) ordered Referral Referred To: Vin Pérez [address] [place] [address], [id number] [phone] Ordered: Referrals: Allopathic & Osteopathic Physicians : Plastic Surgery. Vin Pérez. Evaluate and treat ordered Referral Referred To: Angel Au [address], [phone] Ordered: Referrals: Angel Au. Evaluate and treat ordered Referral Ordered: Physical Therapy (related to Pain in left knee) ordered Referral Referred To: Monica LUNDY, Sudhir Bryant S [facility] Of
[facility] [address] [place], [place], [phone] Ordered: Referrals: Monica LUNDY, Sudhir Simon. Evaluate and treat ordered Referral Ordered: COLONOSCOPY AND BIOPSY ordered Referral Ordered: NAHUN MARQUEZ -Podiatric Medicine & Surgery Service Providers : Ice Sculptor (related to Pain in left ankle) ordered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
--- OUTSIDE RECORDS SUMMARY | 2024-11-30 22:30 | XMS_ITS | Continuity of Care Document ---
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 iron is borderline low pt does have heavy period Pt denies any GI bleeding knee pain1 Pt c/o persisten t left knee pain Pt micki any injury pt denies any warmth or redness. her x ray is benign. Pt denies any redness or warmth back pain1 Pt has intermitt ent low back pain due to DDD. Pt denies any worsening pain Pt denies any loss of bladder control Physical Pt needs annual physical. pt has low thyroid. Pt takes synthroid Pt denies any chest pain or palpitation. Pt has chronic anemia due to heavy period. Pt is very noncompliant with medical professionals in terms of heavy period management. pt [...] memory loss recently. back pain1 Patient has lockstitch pocket setter venkata low back pain. Patient complained of [...] to get ablation for heavy period from medical professionals but she decided to change to different SALT MACHINE OPERATOR and start all over again LBP1 Pt [...] very confused. Pt told me Tonya singh (FASHION ADVISER) sent her to surgeon who refused hysterectomy. [...] pt has persistent and irregular period. Her SALT MACHINE OPERATOR sent her to a surgeon but he does not want hysterectomy. Pt wants to find a new SALT MACHINE OPERATOR? Pt has frequent spotting. back pain1 Pt [...] to anemia most likely from heavy period sob1 pt feels chronic ally sob. pt feels sob frequently. Pt uses ventolin multiple times per day. pt has exertional sob pt denies any chest pain. pt had normal chest x ray Pt quit smoking about 2 years ago. Her still smoke. Pt denies any acute sob Pt denies any calf pain or any recent travel or bedrest hypothyroidism1 Pt has low thyro id. Her TPO is normal. pt feels fatigue anemia1 Pt has anemia. P t had negative fecal globin Pt just got iron infusion and is being followed up by hematology. Pt still feels very tired. Pt does have heavy period. Pt is seeing SALT MACHINE OPERATOR for work up back pain1 Pt has chronic l ow back pain Pt has sciatica and leg numbness. Pt denies any worsening pain. pt denies any loss of bladder control. Pt has hard time doing anything due to pain pt has not done PT yet Anemia1 Pt has severe an emia. pt is seeing hematology for iron infusion now. Pt has carlos with SALT MACHINE OPERATOR next week to discuss heavy period low [...] o Body mass index (BMI) 29.0-29.9, adult Special diet education Related t o Body mass index (BMI) 30.0-30.9, adult Increase physical activity Relat ed to Hematuria Weight management Related to Hem aturia Prescribed dietary intake Relate d to Body mass index (BMI) 31.0-31.9, adult Weight management Related to Hem aturia Special diet education Related t o Body mass index (BMI) 30.0-30.9, adult Increase physical activity Relat ed to Hypothyroidism Special diet education Related t o Body mass index (BMI) 30.0-30.9, adult Perform monthly self breast examinations. Related to Encntr for general adult medical exam w/o abnormal findings Increase activity. Related to En cntr for general adult medical exam w/o abnormal findings Increase physical activity Relat ed to Chronic pain syndrome Special diet education Related t o Body mass index (BMI) 28.0-28.9, adult Increase physical activity Relat ed to Emphysema Weight management Related to Emp hysema Increase physical activity Relat ed to Emphysema Increase physical activity Relat ed to Emphysema Special diet education Related t o Body mass index (BMI) 26.0-26.9, adult Increase physical activity Relat ed to Hematuria [...] Increase physical activity Relat ed to Dyspnea Increase activity. Related to En cntr for general adult medical exam w/o abnormal findings Perform monthly self breast examinations. Related to Encntr for general adult medical exam w/o abnormal findings Assessments Type Assessment Date assessment Stress incontinence assessment Acute bronchitis assessment Disorder of the skin assessment Tinea corporis Mental Status Date Cognitive Assessment Orientation - [place] ed to time, place, person, situation.
--- NOTE | 2024-11-30 22:44 | ED_ITS ---
HPI - General Adult General Chief complaint: Extremity Injury, Lower Stated complaint: Extremity Pain Source: patient Mode of arrival: ambulatory Limitations: no limitations Related Data Home Medications ?Medication ?Instructions ?Recorded ?Confirmed ?Last Taken ?Type tramadol 50 mg tablet 50 mg PO Q6H PRN Pain 06/26/20 11/30/24 07/06/24 History gabapentin 100 mg capsule 100 mg PO TID 03/30/21 11/30/24 07/06/24 History levothyroxine 75 mcg tablet 50 mcg PO DAILY 03/30/21 11/30/24 07/06/24 History (Synthroid) rosuvastatin 10 mg tablet 10 mg PO DAILY 03/30/21 11/30/24 07/06/24 History diclofenac sodium 75 mg 75 mg PO DAILY 07/23/23 11/30/24 07/06/24 History tablet,delayed release duloxetine 30 mg capsule,delayed 60 mg PO DAILY 07/23/23 11/30/24 07/06/24 History release ferrous sulfate 134 mg (27 mg 134 mg PO DAILY 09/18/23 11/30/24 07/06/24 History iron) tablet Allergies Allergy/AdvReac Type Severity Reaction Status Date / Time No Known Allergies Allergy Verified 11/30/24 22:09 [facility] Past Medical History Medical History Pain of midfoot Hallux valgus Tobacco dependence Right foot pain Colon cancer screening Thyroid disorder Kidney disease Hyperlipidemia Headache, migraine COPD (chronic obstructive pulmonary disease) Congestive heart failure Hypothyroidism Chondromalacia, patella Medial meniscus tear Tongue cancer Left knee pain Surgical History Surgical History H/O arthroscopy of left knee 09/30/23 ([facility]) History of total hysterectomy History of skin graft History of tooth extraction all teeth removed. History of appendectomy History of kidney surgery History of gastric surgery History of mandibular surgery Family History Family History Father Skin cancer Diabetes mellitus Hypertension Heart disease Cerebrovascular accident Thyroid disorder Mother Depression Heart disease Grandparent Family history of malignant neoplasm Other Family history of arthritis Social History Social History Social History: caffeine use Smoking packs per day: 0.75 Smoking cigarettes per day: 15.0 Years smoked: 30 Smoking pack-years: 22.50 Smoking status: Current every day smoker Tobacco type: e-cigarettes/vaping Smoking end date: 09/15/15 Alcohol intake: former Substance use: former Substance use type: marijuana Living arrangements: with family Occupation/Education: occupation 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 Gender identity (if verbalized by the patient): Female Spiritual care concerns: No Course Vital Signs Vital signs: Vital Signs Temperature 36.4 C 11/30/24 21:49 Pulse Rate 70 11/30/24 21:49 Respiratory Rate 20 11/30/24 21:49 Blood Pressure 134/93 H 11/30/24 21:49 Pulse Oximetry 100 11/30/24 21:49 Oxygen Delivery Room Air 11/30/24 21:49 Temperature 36.4 C 11/30/24 21:49 Pulse Rate 70 11/30/24 21:49 Respiratory Rate 20 11/30/24 21:49 Blood Pressure 134/93 H 11/30/24 21:49 Pulse Oximetry 100 11/30/24 21:49 Oxygen Delivery Room Air 11/30/24 21:49 Medical Decision Making MDM Narrative Medical decision making narrative: Hallux valgus deformity with medial prominence of the first metatarsal head and trace soft tissue swelling of the forefoot. Patient placed in room: ? History and physical was performed. Independent Historian: External Source Review: Differential Dx includes but not limited to: Medications were Reviewed: Medications given: Independently Interpreted by me: Shared decision Making: Social Situation Impacting Patients Care: Discussed with Dr. HARRIS DIAGNOSIS: DISPOSITION : CONDITION AT DISCHARGE: Vital Signs Vital Signs: Vital Signs Temperature 36.4 C 11/30/24 21:49 Pulse Rate 70 11/30/24 21:49 Respiratory Rate 20 11/30/24 21:49 Blood Pressure 134/93 H 11/30/24 21:49 Pulse Oximetry 100 11/30/24 21:49 Oxygen Delivery Room Air 11/30/24 21:49 Temperature 36.4 C 11/30/24 21:49 Pulse Rate 70 11/30/24 21:49 Respiratory Rate 20 11/30/24 21:49 Blood Pressure 134/93 H 11/30/24 21:49 Pulse Oximetry 100 11/30/24 21:49 Oxygen Delivery Room Air 11/30/24 21:49 Discharge Plan Discharge Clinical Impression: Acute carpal tunnel syndrome of right wrist, Valgus deformity of left great toe, Acute pain of left foot Patient Disposition: Home, Self-Care Condition: Stable Instructions: Bunion (ED), Carpal Tunnel Surgery (DC) Additional Instructions: Tylenol and or ibuprofen for pain. Follow-up with your orthopedic doctor tomorrow to schedule a follow-up appointment To discuss your bunion and your pain in your left foot.. And follow-up appointment with your primary care to discuss your right wrist pain carpal tunnel syndrome. Return if you get worse or develops any new symptoms. Patient Language: Malagasy Prescriptions: No Action clotrimazole-betamethasone 1-0.05 % cream 1 applic topical BID 14 Days Qty: 45 0RF tramadol 50 mg tablet 50 mg PO Q6H PRN (Reason: Pain) levothyroxine [Synthroid] 75 mcg tablet 50 mcg PO DAILY gabapentin 100 mg capsule 100 mg PO TID rosuvastatin 10 mg tablet 10 mg PO DAILY albuterol sulfate 2.5 mg /3 mL (0.083 %) solution for nebulization 2.5 mg inhalation Q4-6H PRN (Reason: shortness of breath or wheezing) 30 Days Qty: 180 5RF diclofenac sodium 75 mg tablet,delayed release (DR/EC) 75 mg PO DAILY duloxetine 30 mg capsule,delayed release(DR/EC) 60 mg PO DAILY ferrous sulfate 134 mg (27 mg iron) Tablet 134 mg PO DAILY phenazopyridine [Pyridium] 200 mg tablet 200 mg PO TID Qty: 6 0RF ibuprofen 600 mg tablet 600 mg PO TID PRN (Reason: pain) Qty: 30 0RF acetaminophen 500 mg capsule 1,000 mg PO Q6H PRN (Reason: pain) Qty: 30 0RF budesonide 0.5 mg/2 mL suspension for nebulization 0.5 mg inhalation BID 30 Days Qty: 120 5RF Rx Instructions: Take at least 10 hours apart. Rinse and spit after use. revefenacin 175 mcg/3 mL solution for nebulization 175 mcg inhalation DAILY 30 Days Qty: 90 5RF Serevent Diskus 50 mcg/dose blister with device 1 inh inhalation Q12H 30 Days Qty: 60 5RF Follow-up/Referrals: Damon Valenzuela MD [Primary Care Provider] - Time of Disposition: 00:19
--- NOTE | 2024-11-30 23:09 | PC.NURSE ---
XRAY AT THE BEDSIDE
[2024-11-30] MEDS: KETOROLAC 30 MG/ML VIAL (*BKC) IM (23:12)
--- NOTE | 2024-12-01 00:27 | ED.GENADULT ---
HPI - General Adult General Chief complaint: Extremity Injury, Lower Stated complaint: Extremity Pain Source: patient Mode of arrival: ambulatory Limitations: no limitations History of Present Illness HPI narrative: Patient complains of right wrist pain for the last 2 months off and on wakes her up at nighttime with tingling and numbness yesterday shake her hands and feels better. She has been dropping things with her fingers that she has trying to hold onto she has tried using ice and tramadol without any relief. She also complains of left foot pain and swelling for the last 3 weeks or month she has been using of ankle brace without any relief for the last 3 weeks. says he has been limping on it hurts worse when she is walking. Says she has a a bunion and a family history of pain associated with bunions with multiple family members. She said she has had right foot pain in the past and seen in [place] had a sprain last year. 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 She says she has been limping it on her left foot. She denies any fall or trauma. She has not seen any physician or provider for these complaints. She said she can not get into her primary care provider for a month. She has a history of urinary incontinence denies any cough fever sore throat runny nose rash or itching bleeding or bruising. Denies any problems stooling bleeding or bruising dizziness or lightheadedness or any other complaints. Related Data Home Medications ?Medication ?Instructions ?Recorded ?Confirmed ?Last Taken ?Type tramadol 50 mg tablet 50 mg PO Q6H PRN Pain 06/26/20 11/30/24 07/06/24 History gabapentin 100 mg capsule 100 mg PO TID 03/30/21 11/30/24 07/06/24 History levothyroxine 75 mcg tablet 50 mcg PO DAILY 03/30/21 11/30/24 07/06/24 History (Synthroid) rosuvastatin 10 mg tablet 10 mg PO DAILY 03/30/21 11/30/24 07/06/24 History diclofenac sodium 75 mg 75 mg PO DAILY 07/23/23 11/30/24 07/06/24 History tablet,delayed release duloxetine 30 mg capsule,delayed 60 mg PO DAILY 07/23/23 11/30/24 07/06/24 History release ferrous sulfate 134 mg (27 mg 134 mg PO DAILY 09/18/23 11/30/24 07/06/24 History iron) tablet Allergies Allergy/AdvReac Type Severity Reaction Status Date / Time No Known Allergies Allergy Verified 11/30/24 22:09 Review of Systems Review of Systems: All systems reviewed & are unremarkable except as noted in HPI and below PMFSH Past Medical History Medical History Pain of midfoot Hallux valgus Tobacco dependence Right foot pain Colon cancer screening Thyroid disorder Kidney disease Hyperlipidemia Headache, migraine COPD (chronic obstructive pulmonary disease) Congestive heart failure Hypothyroidism Chondromalacia, patella Medial meniscus tear Tongue cancer Left knee pain Surgical History Surgical History H/O arthroscopy of left knee 09/30/23 ([facility]) History of total hysterectomy History of skin graft History of tooth extraction all teeth removed. History of appendectomy History of kidney surgery History of gastric surgery History of mandibular surgery Family History Family History Father Skin cancer Diabetes mellitus Hypertension Heart disease Cerebrovascular accident Thyroid disorder Mother Depression Heart disease Grandparent Family history of malignant neoplasm Other Family history of arthritis Social History Social History Social History: caffeine use Smoking packs per day: 0.75 Smoking cigarettes per day: 15.0 Years smoked: 30 Smoking pack-years: 22.50 Smoking status: Current every day smoker Tobacco type: e-cigarettes/vaping Smoking end date: 09/15/15 Alcohol intake: former Substance use: former Substance use type: marijuana Living arrangements: with family Occupation/Education: occupation 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 Head normocephalic, atraumatic.? Eyes conjunctiva pink sclera nonicteric.? Extraocular movements are intact.? Ears externally normal.?Extremities : Right wrist positive Phalen sign negative Tinel sign. Sensation and motor strength is normal For her right hand. Left ankle mild swelling as is the foot mild anterior proximal foot tenderness no malleolus tenderness. She has full range of motion of her ankle and foot. DP and PT pulses are +2. She has a hallucis valgus deformity of her right foot. Her extremities have no cyanosis or clubbing. Skin is warm and dry without rashes or lesions.? Neurological patient is alert and oriented x4.? Motor and sensory grossly intact.? patient has an antalgic gait. Course Vital Signs Vital signs: Vital Signs Temperature 36.4 C 11/30/24 21:49 Pulse Rate 70 11/30/24 21:49 Respiratory Rate 20 11/30/24 21:49 Blood Pressure 134/93 H 11/30/24 21:49 Pulse Oximetry 100 11/30/24 21:49 Oxygen Delivery Room Air 11/30/24 21:49 Temperature 36.4 C 11/30/24 21:49 Pulse Rate 70 11/30/24 21:49 Respiratory Rate 20 11/30/24 21:49 Blood Pressure 134/93 H 11/30/24 21:49 Pulse Oximetry 100 11/30/24 21:49 Oxygen Delivery Room Air 11/30/24 21:49 Medical Decision Making MDM Narrative Medical decision making narrative: Patient placed in room: Two ? History and physical was performed. X-ray of the left ankle showed no active disease per radiologist . X-ray of the left foot per radiologist showed: Hallux valgus deformity with medial prominence of the first metatarsal head and trace soft tissue swelling of the forefoot . Independent Historian: patient External Source Review: Differential Dx includes but not limited to: fracture dislocation sprain carpal tunnel Medications were Reviewed: home meds reviewed Medications given: Toradol 30 mg IM, cock-up splint was given and instructions on use. Independently Interpreted by me: Shared decision Making: Evaluation was discussed with the patient all questions were asked and answered and patient agreed with the plan. She would use her cock-up splint at night and sometimes throughout the day. She will use Tylenol and or ibuprofen and follow up with her primary care provider for further evaluation and treatment. She would follow up with her orthopedist she was given instructions on hallux valgus deformity. She is going to buy larger shoes. Social Situation Impacting Patients Care: Patient financial situation is not the best. Discussed with Dr. HARRIS DIAGNOSIS: Right carpal tunnel syndrome, left foot hallucis valgus deformity with associated swelling and pain of the left foot. DISPOSITION : Discharge home, improved CONDITION AT DISCHARGE: stable Vital Signs Vital Signs: Vital Signs Temperature 36.4 C 11/30/24 21:49 Pulse Rate 70 11/30/24 21:49 Respiratory Rate 20 11/30/24 21:49 Blood Pressure 134/93 H 11/30/24 21:49 Pulse Oximetry 100 11/30/24 21:49 Oxygen Delivery Room Air 11/30/24 21:49 Temperature 36.4 C 11/30/24 21:49 Pulse Rate 70 11/30/24 21:49 Respiratory Rate 20 11/30/24 21:49 Blood Pressure 134/93 H 11/30/24 21:49 Pulse Oximetry 100 11/30/24 21:49 Oxygen Delivery Room Air 11/30/24 21:49 Discharge Plan Discharge Clinical Impression: Acute carpal tunnel syndrome of right wrist, Valgus deformity of left great toe, Acute pain of left foot Patient Disposition: Home, Self-Care Condition: Stable Instructions: Bunion (ED), Carpal Tunnel Surgery (DC) Additional Instructions: Tylenol and or ibuprofen for pain. Follow-up with your orthopedic doctor tomorrow to schedule a follow-up appointment To discuss your bunion and your pain in your left foot.. And follow-up appointment with your primary care to discuss your right wrist pain carpal tunnel syndrome. Return if you get worse or develops any new symptoms. Use your right wrist splint while asleep. Patient Language: French Prescriptions: No Action clotrimazole-betamethasone 1-0.05 % cream 1 applic topical BID 14 Days Qty: 45 0RF tramadol 50 mg tablet 50 mg PO Q6H PRN (Reason: Pain) levothyroxine [Synthroid] 75 mcg tablet 50 mcg PO DAILY gabapentin 100 mg capsule 100 mg PO TID rosuvastatin 10 mg tablet 10 mg PO DAILY albuterol sulfate 2.5 mg /3 mL (0.083 %) solution for nebulization 2.5 mg inhalation Q4-6H PRN (Reason: shortness of breath or wheezing) 30 Days Qty: 180 5RF diclofenac sodium 75 mg tablet,delayed release (DR/EC) 75 mg PO DAILY duloxetine 30 mg capsule,delayed release(DR/EC) 60 mg PO DAILY ferrous sulfate 134 mg (27 mg iron) Tablet 134 mg PO DAILY phenazopyridine [Pyridium] 200 mg tablet 200 mg PO TID Qty: 6 0RF ibuprofen 600 mg tablet 600 mg PO TID PRN (Reason: pain) Qty: 30 0RF acetaminophen 500 mg capsule 1,000 mg PO Q6H PRN (Reason: pain) Qty: 30 0RF budesonide 0.5 mg/2 mL suspension for nebulization 0.5 mg inhalation BID 30 Days Qty: 120 5RF Rx Instructions: Take at least 10 hours apart. Rinse and spit after use. revefenacin 175 mcg/3 mL solution for nebulization 175 mcg inhalation DAILY 30 Days Qty: 90 5RF Serevent Diskus 50 mcg/dose blister with device 1 inh inhalation Q12H 30 Days Qty: 60 5RF Follow-up/Referrals: Damon Valenzuela MD [Primary Care Provider] - Time of Disposition: 00:19
[2024-12-01 00:33] VITALS: BP 128/80; PULSE 72; RESP 18; O2SAT 100
== END 2024-12-01 00:33 | disposition home or self-care (01) ==
PROVIDERS: Emergency Provider Emergency Medicine; PCP Emergency Medicine
DX: G56.01 Carpal tunnel syndrome, right upper limb (principal); M21.072 Valgus deformity, not elsewhere classified, left ankle; E78.5 Hyperlipidemia, unspecified; J44.9 Chronic obstructive pulmonary disease, unspecified; I50.9 Heart failure, unspecified; E03.9 Hypothyroidism, unspecified; F17.290 Nicotine dependence, other tobacco product, uncomplicated; Z85.810 Personal history of malignant neoplasm of tongue
CPT/HCPCS: 29125; 73610; 73630; 96372; 99284; J1885

== ENCOUNTER 2024-12-10 09:53 | Outpatient (RCR) | payer OTHER, SELFPAY ==
--- NOTE | 2024-12-10 11:37 | OPREHPOC ---
Outpatient Therapy Plan of Care This is a Multidisciplinary Plan of Care that may contain components documented by all disciplines (PT, OT, and ST.) PT Problem 1 PT Problem #1 Knowledge Deficit PT Goal 1 Goal / Goal Update Independent and compliant with HEP. Target Visit 2 PT Problem 2 PT Problem #2 Pain PT Goal 1 Goal / Goal Update Pt to report no more than 4/10 pain with activity. Target Visit 4 PT Problem 3 PT Problem #3 Impaired Strength PT Goal 1 Goal / Goal Update Improve L knee strength to 5/5. Improve L ankle/foot strength to 4-/5. Improve great toe extension to 4-/5. Improve great toe flexion to 3+/5. Target Visit 4 PT Problem 4 PT Problem #4 Impaired Functional Mobility PT Goal 1 Goal / Goal Update Pt to ambulate with improved heel strike and toe extension. Pt to report 10% improvement in LEFS score. Target Visit 4 PT Problem 5 PT Problem #5 Impaired Range of Motion PT Goal 1 Goal / Goal Update Improve L great toe extension to 70 deg. Target Visit 4
--- NOTE | 2024-12-10 11:38 | PTOPEVAL1 ---
Assessment and note entered by Sandra Chavez, PT Evaluation Information Assessment Status Evaluation ICD-10 Condition Codes (PT) Pain in left ankle and joints of left foot M25.572 Other ICD-10 Condition Codes ( M25.372, M20.12 PT) Subjective Information Pt reports onset of of L foot/ankle pain about 2 months ago. The pain is located generally in the left foot and pt has bunions bilaterally. 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 Prolonged standing, walking, squatting, and going up/down stairs increase pain. She notes that sitting and getting off her feet relieves pain after about 5 minutes. Reported Pain Level Pain Score 6: Self Report Assessment PT Clinical Summary Mrs. Berry is a 49 yo woman who enters the clinic for L foot/ankle pain and hallux valgus. Her pain is shooting in nature and increases with any weight bearing. She demonstrates bilateral hallux valgus but has significant weakness of the L great toe, foot and ankle compared to the R. L ankle/foot AROM is also impaired compared to the R foot. 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 She will benefit from skilled PT intervention to address foot/ankle ROM, weakness, and gait deviations to be able to perform functional and work activities with less pain. Plan of Care Interventions Electrical Stimulation,Gait Training,Hot Pack/Cold Pack,Manual Therapy,Neuro Re-education,Patient/ Caregiver Education,Therapeutic Activities, Therapeutic Exercise,Self-Care/Home Management PT Services Indicated Yes Treatment Frequency and 2x/week for 4 visits Duration These treatments will address the objective and functional deficits as defined above. The patient will be advanced safely and appropriately in order for the patient to progress towards his/her prior level of function. Additional exercises will be introduced and as well as a comprehensive home exercise program upon discharge, if needed, ?to ensure carryover of functional gains achieved in the clinic. This treatment plan has been reviewed and agreement upon by the patient.
--- NOTE | 2024-12-16 08:13 | PCPTNOTE ---
Cancelled session today. Had another appointment today. Scheduled for next week.
--- NOTE | 2024-12-21 11:20 | PTOPDC ---
Assessment and note entered by Marija Gilbert DPT Evaluation Information Assessment Status Re-evaluation ICD-10 Condition Codes (PT) Pain in left ankle and joints of left foot M25.572 Other ICD-10 Condition Codes ( M25.372, M20.12 PT) Subjective Information Patient reports she has not had any improvement since starting PT. She reports she continues to have pain with walking, standing to complete house hold tasks and ambulating. She reports she has been attempting HEP but is not able to complete all of it due to pain. Reported Pain Level Pain Score 7: Self Report Pain Score 6: Self Report Assessment PT Clinical Summary Ms. Berry has attended 4 visits of skilled PT with limited progress towards goals. She continues to lack strength and ROM of the L ankle and impaired gait mechanics. She reports pain with ambulating, standing to complete house hold tasks and navigating stairs. She will be discharged at this time due to lack of progress. Plan of Care PT Services Indicated No
== END 2024-12-21 20:53 | disposition home or self-care (01) ==
LOC: CHSPT 09:53
PROVIDERS: Visit Provider Orthopaedic Surgery
DX: M25.372 Other instability, left ankle (principal); M20.12 Hallux valgus (acquired), left foot
CPT/HCPCS: 97110; 97112; 97140; 97161; 97530

== ENCOUNTER 2025-01-30 15:43 | Emergency (ER) | payer OTHER, SELFPAY ==
[2025-01-30 15:43] VITALS: BP 119/81; PULSE 74; RESP 16; TEMP 36.5; O2SAT 97
--- OUTSIDE RECORDS SUMMARY | 2025-01-30 15:51 | XMS_ITS | Continuity of Care Document ---
Author Organization [facility] Address [address] [place] [address] Phone Care Team Providers Care Rn Emergency Name Role Phone Damon Valenzuela MD Unavailable Unavailable Allergies, Adverse Reactions, Alerts Substance Reaction Status Criticality No Known Allergies Active No Inform ation Medications Medication Instructions Dosage Effective Dates (start - stop) Status Comments ketoconazole 2 % topical cream apply by topical route 2 times every day to the affected area(s) Not Available - Active fluticasone propionate 110 mcg/actuation HFA aerosol inhaler [...] by oral route every day 60 MG Apr-09-2024 - Active Procedures Procedure Date OFFICE/OUTPATIENT VISIT, [...] Providers Copied on Encounter OFFICE/OUTPA TIENT VISIT, [facility], [address], [place], [place], [address], [phone] [facility] rash1 (chief complaint) Tinea corporis Nicolas Murphy [address], [place], [place], [address] , [place]. tel:[phone] OFFICE/OUTPA TIENT VISIT, [facility], [address] [place], [place], [address], [place] tel:[phone] [facility] pannus1 (chief complaint) hand1 (chief complaint) Carpal tunnel syndrome, right upper limbTinea corporisEncounter for oth screening for malignant neoplasm of breast 5 Nicolas Murphy [address], [place], [place], [address] , [place]. tel:[phone] OFFICE/OUTPA TIENT VISIT, [facility], [address] [place], [place], [address], [place] tel:[phone] [facility] cough1 (chief complaint) incontinen ce1 (chief complaint) rash1 (chief complaint) Stress incontinenceAcute bronchitisDisorder of the skinTinea corporis 4 Nicolas Murphy [address], [place], [place], [address] , [place]. tel:[phone] [facility], [address], [place], [place], [address], [place] tel:[phone] [facility] No Information 4 Nicolas Murphy [address], [place], [place], [address] , [place]. tel:[phone] OFFICE/OUTPA TIENT VISIT, [facility], [address], [place], [place], [address], [place] tel:[phone] [facility] back pain1 (chief complaint) rash1 (chief complaint) thyroid1 (chief complaint) Chronic pain syndromeHypothyroid ismTinea corporis 4 Nicolas Jose. [address], [place], [place], [address] , [place]. tel:[phone] OFFICE/OUTPA TIENT VISIT, [facility], [address], [place], [place], [address], [place] tel:[phone] [facility] back pain1 (chief complaint) Chronic pain syndrome 4 Nicolas Jose. [address], [place], [place], [address] , [place]. tel:[phone] [facility], [address], [place], [place], [address], [place] tel:[phone] [facility] No Information 4 Nicolas Jose. [address], [place], [place], [address] , [place]. tel:[phone] OFFICE/OUTPA TIENT VISIT, [facility], [address], [place], [place], [address], [place] tel:[phone] [facility] pain (chief complaint) anxiety1 (chief complaint) HLP (chief complaint) weight loss1 (chief complaint) asthma1 (chief complaint) Generalized Anxiety DisorderAnterior chest-wall painChronic pain syndromeAbnormal weight lossEncntr screen mammogram for malignant neoplasm of breastMixed hyperlipidemiaMild intermittent asthma, uncomplicated 4 Nicolas Jose. [address], [place], [place], [address] , [place]. tel:[phone] OFFICE/OUTPA TIENT VISIT, [facility], [address], [place], [place], [address], [place] tel:[phone] [facility] thyroid1 (chief complaint) pain (chief complaint) depression 1 (chief complaint) chest pain1 (chief complaint) Anterior chest-wall painIron deficiencyHypothyro idismGeneralized Anxiety DisorderOther spondylosis, lumbar region 3 Nicolas Murphy [address], [place], [place], [address] , [place]. [phone] OFFICE/OUTPA TIENT VISIT, EST [facility], [address], [place], [place], [address], [place] tel:[phone] [facility] ferritin1 (chief complaint) ferritin1 (chief complaint) glucose1 (chief complaint) HLP (chief complaint) sick (chief complaint) back pain1 (chief complaint) Iron deficiencyHyperglyc emiaFatigueAnterior chest-wall painAcute sinusitisInconclusi ve mammogram 3 Nicolas Murphy [address], [place], [place], [address] , [place]. [phone] PREV VISIT, EST, AGE 40-64 [facility], [address], [place], [place], [address], [place] tel:[phone] [facility] physical (chief complaint) Encounter for general adult medical examination without abnormal findings 3 Nicolas Murphy [address], [place], [place], [address] , [place]. [phone] OFFICE/OUTPA TIENT VISIT, EST [facility], [address], [place], [place], [address], [place] tel:[phone] [facility] UTI1 (chief complaint) Acute cystitis without hematuria 3 Nicolas Murphy [address], [place], [place], [address] , [place]. [phone] OFFICE/OUTPA TIENT VISIT, EST [facility], [address], [place], [place], [address], [place] tel:[phone] [facility] knee pain1 (chief complaint) back pain1 (chief complaint) Pain in left kneeOther spondylosis, lumbar region 3 Nicolas Jose. [address], [place], [place], [address] , [place]. tel:[phone] OFFICE/OUTPA TIENT VISIT, [facility], [address], [place], [place], [address], [place] tel:[phone] [facility] back pain1 (chief complaint) HLP (chief complaint) ankle 1 (chief complaint) anxiety1 (chief complaint) Abnormal weight gainChronic pain syndromePain in left ankleMixed hyperlipidemiaEncou nter for oth screening for malignant neoplasm of breastEncounter for screening for malignant neoplasm of colon 3 Nicolas Jose. [address], [place], [place], [address] , [place]. tel:[phone] OFFICE/OUTPA TIENT VISIT, [facility], [address], [place], [place], [address], [place] tel:[phone] [facility] ankle pain1 (chief complaint) back pain1 (chief complaint) Pain in left ankleEdemaOther spondylosis, lumbar region 3 Nicolas Jose. [address], [place], [place], [address] , [place]. tel:[phone] OFFICE/OUTPA TIENT VISIT, [facility], [address], [place], [place], [address], [place] tel:[phone] [facility] back pain1 (chief complaint) thyroid1 (chief complaint) weight gain1 (chief complaint) Chronic pain syndromeHypothyroid ismOther spondylosis, lumbar regionAbnormal weight gain 3 Nicolas Jose. [address], [place], [place], [address] , [place]. tel:[phone] OFFICE/OUTPA TIENT VISIT, [facility], [address], [place], [place], [address], [place] tel:[phone] [facility] thyroid (chief complaint) back pain1 (chief complaint) Other spondylosis, lumbar regionHypothyroidis mChronic pain syndrome 2 Nicolas Murphy [address], [place], [place], [address] , [place]. tel:[phone] OFFICE/OUTPA TIENT VISIT, [facility], [address] [place] [address], [place] tel:[phone] [facility] back pain1 (chief complaint) edema1 (chief complaint) anxiety1 (chief complaint) Chronic pain syndromeEdemaGenera lized Anxiety Disorder 2 Nicolas Murphy [address], [place], [place], [address] , [place]. tel:[phone] OFFICE/OUTPA TIENT VISIT, [facility], [address] [place], [address], [place] tel:[phone] [facility] back pain1 (chief complaint) UTI1 (chief complaint) thyroid1 (chief complaint) Acute cystitis without hematuriaLumbago with sciatica, right sideHypothyroidism 2 Nicolas Murphy [address], [place], [place], [address] , [place]. tel:[phone] OFFICE/OUTPA TIENT VISIT, [facility], [address] [place], [address], [place] tel:[phone] [facility] back pain1 (chief complaint) Acute cystitis without hematuriaLumbago with sciatica, right side 2 Nicolas Jose. [address], [place], [place], [address] , [place]. tel:[phone] OFFICE/OUTPA TIENT VISIT, [facility], [address] [place], [address], [place] tel:[phone] [facility] UTI1 (chief complaint) ferritin1 (chief complaint) thyroid (chief complaint) HLP (chief complaint) Acute cystitis without hematuriaIron deficiencyMixed hyperlipidemiaHypot hyroidismEncounter for oth screening for malignant neoplasm of breast 2 Nicolas Murphy [address], [place], [place], [address] , [place]. tel:[phone] PREV VISIT, EST, AGE 40-64 [facility], [address], [place], [place], [address], [place] tel:[phone] [facility] physical (chief complaint) Encounter for general adult medical examination without abnormal findings 2 Nicolas Murphy [address], [place], [place], [address] , [place]. tel: [phone] OFFICE/OUTPA TIENT VISIT, [facility], [address], [place], [place], [address], [place] tel:[phone] [facility] anxiety1 (chief complaint) HLP (chief complaint) back pain1 (chief complaint) Generalized Anxiety DisorderChronic pain syndromeHyperlipide kevin 2 Nicolas Murphy [address], [place], [place], [address] , [place]. tel: [phone] OFFICE/OUTPA TIENT VISIT, [facility], [address], [place], [place], [address], [place] tel:[phone] [facility] pain (chief complaint) anxiety1 (chief complaint) Chronic pain syndromeGeneralized Anxiety Disorder 2 Nicolas Jose. [address], [place], [place], [address] , [place]. tel:[phone] OFFICE/OUTPA TIENT VISIT, EST [facility], [address], [place], [place], [address], [place] tel:[phone] [facility] hematuria1 (chief complaint) pain1 (chief complaint) depression 1 (chief complaint) Chronic pain syndromeHematuriaDe pression 1 Nicolas Murphy [address], [place], [place], [address] , [place]. [phone] OFFICE/OUTPA TIENT VISIT, [facility], [address], [place], [place], [address], [place] tel:[phone] [facility] HLP (chief complaint) hematuria1 (chief complaint) low ferritin1 (chief complaint) thyroid1 (chief complaint) pain (chief complaint) weight gain1 (chief complaint) HyperlipidemiaIron deficiency anemia, unspecifiedHypothyr oidismVitamin D deficiency, unspecifiedUrinary tract infectionChronic pain syndromeAbnormal weight gain 1 Nicolas Murphy [address], [place], [place], [address] , [place]. tel:[phone] PREV VISIT, EST, AGE 40-64 [facility], [address], [place], [place], [address], [place] tel:[phone] [facility] physical (chief complaint) Encounter for general adult medical examination without abnormal findings 1 Nicolas Murphy [address], [place], [place], [address] , [place]. tel:[phone] OFFICE/OUTPA TIENT VISIT, [facility], [address], [place], [place], [address], [place] tel:[phone] [facility] pain1 (chief complaint) fatigue1 (chief complaint) Chronic pain syndromeFatigue 1 Nicolas Murphy [address], [place], [place], [address] , [place]. tel:[phone] OFFICE/OUTPA TIENT VISIT, [facility], [address], [place], [place], [address], [place] tel:[phone] [facility] pain (chief complaint) HLP (chief complaint) fatigue1 (chief complaint) HyperlipidemiaChron ic pain syndromeEncounter for oth screening for malignant neoplasm of breastFatigue 1 Nicolas Murphy [address], [place], [place], [address] , [place]. [phone] OFFICE/OUTPA TIENT VISIT, EST [facility], [address], [place], [place], [address], [place] tel:[phone] [facility] HLP (chief complaint) anemia1 (chief complaint) back pain1 (chief complaint) fatigue1 (chief complaint) Iron deficiency anemia, unspecifiedHyperlip idemiaChronic pain syndromeFatigue 0 Nicolas Jose. [address], [place], [place], [address] , [place]. [phone] OFFICE/OUTPA TIENT VISIT, EST [facility], [address], [place], [place], [address], [place] tel:[phone] [facility] HLP (chief complaint) anemia1 (chief complaint) D (chief complaint) fatigue1 (chief complaint) FatigueHypothyroidi smIron deficiency anemiaVitamin D deficiency, unspecifiedHyperlip idemia 0 Nicolas Jose. [address], [place], [place], [address] , [place]. tel:[phone] Referring Provider: Damon Valenzuela [address], [place], [place], [address]. tel:[phone] PREV VISIT, EST, AGE 40-64 [facility], [address], [place], [place], [address], [place] tel:[phone] [facility] physical (chief complaint) Encntr for general adult medical exam w/o abnormal findings 0 Nicolas Jose. [address], [place], [place], [address] , [place]. tel:[phone] Referring Provider: Damon Valenzuela [address], [place], [place], [address]. tel:[phone] OFFICE/OUTPA TIENT VISIT, EST [facility], [address], [place], [place], [address], [place] tel:[phone] [facility] back pain1 (chief complaint) thyroid1 (chief complaint) HypothyroidismChron ic pain syndrome 0 Nicolas [address], [place], [place], [address] , [place]. [phone] Referring Provider: Tico Guadarr[address], [place], [place], [address]. tel:[phone] OFFICE/OUTPA TIENT VISIT, [facility], [address], [place], [place], [address], [place] [phone] [facility] Hematuria1 (chief complaint) back pain1 (chief complaint) throat CA (chief complaint) skin1 (chief complaint) Chronic pain syndromeHematuriaMa lignant neoplasm of tongue, unspecifiedCellulit is of left upper limb 0 Nicolas [address], [place], [place], [address] , [place]. tel:[phone] Referring Provider: T[address], [place], [place], [address]. tel:[phone] OFFICE/OUTPA TIENT VISIT, [facility], [address], [place], [place], [address], [place] tel:[phone] [facility] hematuria1 (chief complaint) back pain1 (chief complaint) skin1 (chief complaint) HematuriaChronic pain syndromeCellulitis of left upper limbFlushing 9 Nicolas [address], [place], [place], [address] , [place]. tel:[phone] Referring Provider: Tico Guadarrama [address], [place], [place], [address]. tel:[phone] OFFICE/OUTPA TIENT VISIT, [facility], [address], [place], [place], [address], [place] tel:[phone] [facility] hematuria1 (chief complaint) back pain1 (chief complaint) thyroid1 (chief complaint) HematuriaHypothyroi dismChronic pain syndromeIrregular period Aug- 9 Valenzuela Damon. [address], [place], [place], [address] , [place]. [phone] Referring Provider: Tico Guadarrama [address], [place], [place], [address]. tel:[phone] OFFICE/OUTPA TIENT VISIT, EST [facility], [address], [place], [place], [address], [place] tel:[phone] [facility] hematuria1 (chief complaint) hypothyroi dism1 (chief complaint) back pain1 (chief complaint) HematuriaHypothyroi dismChronic pain syndrome 9 Nicolas Murphy [address], [place], [place], [address] , [place]. [phone] Referring Provider: Tico Guadarrama [address], [place], [place], [address]. tel:[phone] OFFICE/OUTPA TIENT VISIT, EST [facility], [address], [place], [place], [address], [place] tel:[phone] [facility] thyroid1 (chief complaint) low iron1 (chief complaint) knee pain1 (chief complaint) back pain1 (chief complaint) HypothyroidismIron deficiency anemia, unspecifiedChronic pain syndromePain in left kneeHematuria 9 Nicolas Jose. [address], [place], [place], [address] , [place]. [phone] Referring Provider: Tico Guadarrama [address], [place], [place], [address]. tel:[phone] PREV VISIT, EST, AGE 40-64 [facility], [address], [place], [place], [address], [place] tel:[phone] [facility] Physical (chief complaint) Encntr for general adult medical exam w/o abnormal findings 9 Nicolas Jose. [address], [place], [place], [address] , [place]. [phone] Referring Provider: Tico Guadarrama [address], [place], [place], [address]. tel:[phone] OFFICE/OUTPA TIENT VISIT, [facility], [address], [place], [place], [address], [place] tel:[phone] [facility] back pain1 (chief complaint) COPD (chief complaint) malnutriti on1 (chief complaint) Chronic pain syndromeEmphysemaDy sphagia Fe0 5201 9 Nicolas Jose. [address], [place], [place], [address] , [place]. tel:[phone] Referring Provider: Tico Guadarrama [facility] [address], [place], [place], [address]. tel:[phone] OFFICE/OUTPA TIENT VISIT, [facility], [address], [place], [place], [address], [place] tel:[phone] [facility] thyroid1 (chief complaint) Anemia1 (chief complaint) LBP1 (chief complaint) COPD1 (chief complaint) EmphysemaHypothyroi dismAnemiaChronic pain syndrome 0 5 8 Nicolas Jose. [address], [place], [place], [address] , [place]. [phone] Referring Provider: T[address], [place], [place], [address]. tel:[phone] OFFICE/OUTPA TIENT VISIT, [facility], [address], [place], [place], [address], [place] tel:[phone] [facility] back pain1 (chief complaint) SOB1 (chief complaint) anemia1 (chief complaint) EmphysemaHypothyroi dismAnemiaChronic pain syndromeHematuria 8201 8 Nicolas Jose. [address], [place], [place], [address] , [place]. [phone] Referring Provider: Tico [address], [place], [place], [address]. tel:[phone] OFFICE/OUTPA TIENT VISIT, [facility], [address], [place], [place], [address], [place] tel:[phone] [facility] HYpothyroi dism1 (chief complaint) back pain1 (chief complaint) hematuria1 (chief complaint) copd1 (chief complaint) EmphysemaHypothyroi dismChronic pain syndromeAnemia Jun-0 8201 8 Nicolas Jose. [address], [place], [place], [address] , [place]. [phone] Referring Provider: Tico Guadarrama [address], [place], [place], [address]. tel:[phone] OFFICE/OUTPA TIENT VISIT, [facility], [address], [place], [place], [address], [place] tel:[phone] [facility] back pain1 (chief complaint) sob1 (chief complaint) thyroid (chief complaint) hematuria1 (chief complaint) EmphysemaHypothyroi dismHematuriaChroni c pain syndromeAnefour corners regional [facility] center Sep-0 7201 8 Nicolas Jose. [address], [place], [place], [address] , [place]. tel:[phone] Referring Provider: Tico [address]arr[address], [place], [place], [address]. tel:[phone] OFFICE/OUTPA TIENT VISIT, [facility], [address], [place], [place], [address], [place] tel:[phone] [facility] sob1 (chief complaint) hypothyroi dism1 (chief complaint) anemia1 (chief complaint) back pain1 (chief complaint) EmphysemaAnemiaHypo thyroidismChronic pain syndrome Apr-0 8 8 Nicolas Jose. [address], [place], [place], [address] , [place]. tel:[phone] Referring Provider: Tico Guadarrama [address], [place], [place], [address]. tel:[phone] OFFICE/OUTPA TIENT VISIT, [facility], [address], [place], [place], [address], [place] tel:[phone] [facility] Anemia1 (chief complaint) low thyroid1 (chief complaint) sob1 (chief complaint) back pain. 1 (chief complaint) HypothyroidismAnemi aLumbagoDyspnea 8 Nicolas Jose. [address], [place], [place], [address] , [place]. [phone] Referring Provider: Damon Valenzuela, [address], [place], [place], [address]. tel:[phone] OFFICE/OUTPA TIENT VISIT, [facility], [address], [place], [place], [address], [place] tel:[phone] [facility] hematuria1 (chief complaint) thyroid (chief complaint) anemia1 (chief complaint) back pain1 (chief complaint) HematuriaHypothyroi dismIron deficiency anemia, unspecifiedLumbago 8 Nicolas Jose. [address], [place], [place], [address] , [place]. [phone] Referring Provider: Tico Gu[address]arr[address], [place], [place], [address]. tel:[phone] OFFICE/OUTPA TIENT VISIT, [facility], [address], [place], [place], [address], [place] tel:[phone] [facility] chronic pain (chief complaint) sob (chief complaint) shoudler pain1 (chief complaint) DyspneaLumbagoPain in left shoulder Nov-0 8 Nicolas Jose. [address], [place], [place], [address] , [place]. [phone] Referring Provider: Tico Guadarrama [address], [place], [place], [address]. tel:[phone] PREV VISIT, NEW, AGE 40-64 [facility], [address], [place], [place], [address], [place] tel:[phone] [facility] Physical (chief complaint) Encntr for general adult medical exam w/o abnormal findings 7 Nicolas Jose. [address], [place], [place], [address] , [place]. tel:[phone] Referring Provider: Damon Valenzuela, [address], [place], [place], [address]. tel:[phone] Family History Family Member Type Diagnosis Age At Onset Father Problem (finding) Hypertension Mother Problem (finding) of lung Ca 65 Father Problem (finding) uknown cancer Mother Problem (finding) Payers Payer name Insurance type Covered green party ID Authoriza tion(s) No Information Social History Type Description Quantity Date Captured Comments Alcohol Use Details No Caffeine Use Details Unknown Tobacco Use Status Ex-cigarette smoker 025 Smoking Status Former smoker Sex Female Vital Signs Date / Time: Height Weight BMI Pulse Rate Blood Pressure Temperature Respiratory Rate Body Surface Area Head Circumference BMI percentile Pulse Ox Inhaled Ox 10:48 PM 64.00 in 192.00 lbs 32.9 6 kg/m eter (2) Chief Complaint And Reason For Visit From encounter dated '01/26/2025 18:16'. rash1 (chief complaint). Description: Pt c/o chronic and recurrent bilateral itchy red rash under breast. Pt wants to try topical cream. Plan Of Treatment Date Type Action Status [...] Special diet education compl eted Referral Ordered: MOTOR NERVE CONDUCTION TEST ordered Referral Ordered: Vin Pérez -[facility]opathic Physicians : Plastic Surgery (related to Disorder of the skin) ordered Referral Referred To: Vin Pérez [address] [place], [place], [phone] Ordered: Referrals: [facility]opathic & Osteopathic Physicians : Plastic Surgery. Vin Pérez. Evaluate and treat ordered Referral Referred To: Angel Au [address] [place] [address], [phone] Ordered: Referrals: Angel Au. Evaluate and treat ordered Referral Ordered: Physical Therapy (related to Pain in left knee) ordered Referral Referred To: Monica LUNDY, Sudhir Simon [address]
[place] [address] [place] [address], [phone] Ordered: Referrals: Monica LUNDY, Sudhir Simon. Evaluate and treat ordered Referral Ordered: COLONOSCOPY AND BIOPSY ordered Referral Ordered: NAHUN MARQUEZ -Podiatric Medicine & Surgery Service Providers : Creative Resource Manager (related to Pain in left ankle) ordered Referral Referred To: NAHUN MARQUEZ [address] [place], [place], [phone] Ordered: Referrals: Podiatric Medicine & Surgery Service Providers : Creative Resource Manager. NAHUN MARQUEZ. Evaluate and treat ordered Referral [...] [facility] [address] [place], [place] [id number] Ordered: Referrals: Allopathic & Osteopathic Physicians : [...] exam w/o abnormal findings) ordered Referral Ordered: [employer] [facility] (related to Encntr for general adult medical exam w/o abnormal findings) ordered Referral Referred To: [facility] [address] [place] [address] Ordered: Referrals: [facility] [employer]. Evaluate and treat ordered Referral Ordered: MAMMOGRAM, SCREENING ordered Ref [id number]|2025-01-30 15:53:00|2025-01-30 15:53:00|ED_ITS|[facility]|Health Information Management|[id number]|"HPI - General Adult General Chief complaint: Extremity Problem,Nontraumatic Stated complaint: left arm pain History of Present Illness HPI narrative: Malinda is a 49F with a PMH of tongue cancer, tobacco dependence, COPD, and CAPRICE that presented to the ED with pain in her left elbow getting worse for several days. 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 No acute trauma or fall. Related Data Home Medications Medication Instructions Recorded Confirmed Last Taken Type tramadol 50 mg tablet 50 mg PO Q6H PRN Pain 06/26/20 12/06/24 07/06/24 History gabapentin 100 mg capsule 100 mg PO TID 03/30/21 12/06/24 07/06/24 History levothyroxine 75 mcg tablet 50 mcg PO DAILY 03/30/21 12/06/24 07/06/24 History (Synthroid) rosuvastatin 10 mg tablet 10 mg PO DAILY 03/30/21 12/06/24 07/06/24 History diclofenac sodium 75 mg 75 mg PO DAILY 07/23/23 12/06/24 07/06/24 History tablet,delayed release duloxetine 30 mg capsule,delayed 60 mg PO DAILY 07/23/23 12/06/24 07/06/24 History release ferrous sulfate 134 mg (27 mg 134 mg PO DAILY 09/18/23 12/06/24 07/06/24 History iron) tablet Allergies Allergy/AdvReac Type Severity Reaction Status Date / Time No Known Allergies Allergy Verified 12/06/24 07:33 Review of Systems Review of Systems: All systems reviewed & are unremarkable except as noted in HPI and below PMFSH Past Medical History Medical History (Updated 01/30/25 @ 15:59 by Natalio Guerra DO) Right wrist pain Left ankle instability Pain of midfoot Hallux valgus Tobacco dependence Right foot pain Colon cancer screening Thyroid disorder Kidney disease Hyperlipidemia Headache, migraine COPD (chronic obstructive pulmonary disease) Congestive heart failure Hypothyroidism Chondromalacia, patella Medial meniscus tear Tongue cancer Left knee pain Surgical History Surgical History H/O arthroscopy of left knee 09/30/23 ([facility]) History of total hysterectomy History of skin graft History of tooth extraction all teeth removed. History of appendectomy History of kidney surgery History of gastric surgery History of mandibular surgery Family History Family History Father Skin cancer Diabetes mellitus Hypertension Heart disease Cerebrovascular accident Thyroid disorder Mother Depression Heart disease Grandparent Family history of malignant neoplasm Other Family history of arthritis Social History Social History Social History: caffeine use Smoking packs per day: 0.75 Smoking cigarettes per day: 15.0 Years smoked: 30 Smoking pack-years: 22.50 Smoking status: Current every day smoker Tobacco type: e-cigarettes/vaping Smoking end date: 09/15/15 Alcohol intake: former Substance use: former Substance use type: marijuana Living arrangements: with family Occupation/Education: occupation 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 Gender identity (if verbalized by the patient): Female Spiritual care concerns: No Exam Const: General: cooperative, healthy appearing, comfortable, no acute distress, well developed, alert, awake and Physically active Orientation/consciousness: oriented to person, oriented to place and oriented to time HENMT: Head: normal to inspection, normocephalic and atraumatic Ears: hearing grossly normal bilaterally and external ears normal Face/Nose/Sinus: Normal external nose present Eyes: General: appearance normal, both eyes and all related structures Periorbital: periorbital findings normal Sclera: sclerae normal Pupils: Equal, round and reactive pupils present Neck: Neck: normal visual inspection Chest: Chest palpation & inspection: normal inspection of the chest Resp: Effort & Inspection: normal respiratory effort, able to speak in complete sentences and no respiratory distress Cardio: Jugular venous distension: no JVD Skin: General skin exam: normal color and no rashes or lesions noted Neuro: General: oriented to person, oriented to place and oriented to time Cranial nerves: Yes Equal, round and reactive pupils present Extrem: General: normal to inspection Other: left lateral elbow was TTP and hurt worse with restricted wrist extension. Course Vital Signs Vital signs: Vital Signs Temperature 97.7 F 01/30/25 15:43 Pulse Rate 74 01/30/25 15:43 Respiratory Rate 16 01/30/25 15:43 Blood Pressure 119/81 01/30/25 15:43 Pulse Oximetry 97 01/30/25 15:43 Oxygen Delivery Room Air 01/30/25 15:43 Temperature 97.7 F 01/30/25 15:43 Pulse Rate 74 01/30/25 15:43 Respiratory Rate 16 01/30/25 15:43 Blood Pressure 119/81 01/30/25 15:43 Pulse Oximetry 97 01/30/25 15:43 Oxygen Delivery Room Air 01/30/25 15:43 Medical Decision Making Vital Signs Vital Signs: Vital Signs Temperature 97.7 F 01/30/25 15:43 Pulse Rate 74 01/30/25 15:43 Respiratory Rate 16 01/30/25 15:43 Blood Pressure 119/81 01/30/25 15:43 Pulse Oximetry 97 01/30/25 15:43 Oxygen Delivery Room Air 01/30/25 15:43 Temperature 97.7 F 01/30/25 15:43 Pulse Rate 74 01/30/25 15:43 Respiratory Rate 16 01/30/25 15:43 Blood Pressure 119/81 01/30/25 15:43 Pulse Oximetry 97 01/30/25 15:43 Oxygen Delivery Room Air 01/30/25 15:43 Discharge Plan Discharge Clinical Impression: Epicondylitis, lateral Patient Disposition: Home Condition: Stable Instructions: [facility]oma[facility] Elbow (ED) Patient Language: [place] Prescriptions: New meloxicam 15 mg tablet 15 mg PO DAILY Qty: 10 0RF meloxicam 15 mg tablet 15 mg PO DAILY Qty: 10 0RF No Action clotrimazole-betamethasone 1-0.05 % cream 1 applic topical BID 14 Days Qty: 45 0RF tramadol 50 mg tablet 50 mg PO Q6H PRN (Reason: Pain) levothyroxine [Synthroid] 75 mcg tablet 50 mcg PO DAILY gabapentin 100 mg capsule 100 mg PO TID rosuvastatin 10 mg tablet 10 mg PO DAILY albuterol sulfate 2.5 mg /3 mL (0.083 %) solution for nebulization 2.5 mg inhalation Q4-6H PRN (Reason: shortness of breath or wheezing) 30 Days Qty: 180 5RF diclofenac sodium 75 mg tablet,delayed release (DR/EC) 75 mg PO DAILY duloxetine 30 mg capsule,delayed release(DR/EC) 60 mg PO DAILY ferrous sulfate 134 mg (27 mg iron) Tablet 134 mg PO DAILY phenazopyridine [Pyridium] 200 mg tablet 200 mg PO TID Qty: 6 0RF ibuprofen 600 mg tablet 600 mg PO TID PRN (Reason: pain) Qty: 30 0RF acetaminophen 500 mg capsule 1,000 mg PO Q6H PRN (Reason: pain) Qty: 30 0RF budesonide 0.5 mg/2 mL suspension for nebulization 0.5 mg inhalation BID 30 Days Qty: 120 5RF Rx Instructions: Take at least 10 hours apart. Rinse and spit after use. revefenacin 175 mcg/3 mL solution for nebulization 175 mcg inhalation DAILY 30 Days Qty: 90 5RF Serevent Diskus 50 mcg/dose blister with device 1 inh inhalation Q12H 30 Days Qty: 60 5RF Follow-up/Referrals: Damon Valenzuela MD [Primary Care Provider] - "
--- NOTE | 2025-01-30 15:53 | ED.GENADULT ---
HPI - General Adult General Chief complaint: Extremity Problem,Nontraumatic Stated complaint: left arm pain History of Present Illness HPI narrative: Malinda is a 49F with a PMH of tongue cancer, tobacco dependence, COPD, and CAPRICE that presented to the ED with pain in her left elbow getting worse for several days. 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 No acute trauma or fall. Related Data Home Medications Medication Instructions Recorded Confirmed Last Taken Type tramadol 50 mg tablet 50 mg PO Q6H PRN Pain 06/26/20 12/06/24 07/06/24 History gabapentin 100 mg capsule 100 mg PO TID 03/30/21 12/06/24 07/06/24 History levothyroxine 75 mcg tablet 50 mcg PO DAILY 03/30/21 12/06/24 07/06/24 History (Synthroid) rosuvastatin 10 mg tablet 10 mg PO DAILY 03/30/21 12/06/24 07/06/24 History diclofenac sodium 75 mg 75 mg PO DAILY 07/23/23 12/06/24 07/06/24 History tablet,delayed release duloxetine 30 mg capsule,delayed 60 mg PO DAILY 07/23/23 12/06/24 07/06/24 History release ferrous sulfate 134 mg (27 mg 134 mg PO DAILY 09/18/23 12/06/24 07/06/24 History iron) tablet Allergies Allergy/AdvReac Type Severity Reaction Status Date / Time No Known Allergies Allergy Verified 12/06/24 07:33 Review of Systems Review of Systems: All systems reviewed & are unremarkable except as noted in HPI and below PMFSH Past Medical History Medical History (Updated 01/30/25 @ 15:59 by Natalio Guerra DO) Right wrist pain Left ankle instability Pain of midfoot Hallux valgus Tobacco dependence Right foot pain Colon cancer screening Thyroid disorder Kidney disease Hyperlipidemia Headache, migraine COPD (chronic obstructive pulmonary disease) Congestive heart failure Hypothyroidism Chondromalacia, patella Medial meniscus tear Tongue cancer Left knee pain Surgical History Surgical History H/O arthroscopy of left knee 09/30/23 ([facility]) History of total hysterectomy History of skin graft History of tooth extraction all teeth removed. History of appendectomy History of kidney surgery History of gastric surgery History of mandibular surgery Family History Family History Father Skin cancer Diabetes mellitus Hypertension Heart disease Cerebrovascular accident Thyroid disorder Mother Depression Heart disease Grandparent Family history of malignant neoplasm Other Family history of arthritis Social History Social History Social History: caffeine use Smoking packs per day: 0.75 Smoking cigarettes per day: 15.0 Years smoked: 30 Smoking pack-years: 22.50 Smoking status: Current every day smoker Tobacco type: e-cigarettes/vaping Smoking end date: 09/15/15 Alcohol intake: former Substance use: former Substance use type: marijuana Living arrangements: with family Occupation/Education: occupation 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 Gender identity (if verbalized by the patient): Female Spiritual care concerns: No Exam Const: General: cooperative, healthy appearing, comfortable, no acute distress, well developed, alert, awake and Physically active Orientation/consciousness: oriented to person, oriented to place and oriented to time HENMT: Head: normal to inspection, normocephalic and atraumatic Ears: hearing grossly normal bilaterally and external ears normal Face/Nose/Sinus: Normal external nose present Eyes: General: appearance normal, both eyes and all related structures Periorbital: periorbital findings normal Sclera: sclerae normal Pupils: Equal, round and reactive pupils present Neck: Neck: normal visual inspection Chest: Chest palpation & inspection: normal inspection of the chest Resp: Effort & Inspection: normal respiratory effort, able to speak in complete sentences and no respiratory distress Cardio: Jugular venous distension: no JVD Skin: General skin exam: normal color and no rashes or lesions noted Neuro: General: oriented to person, oriented to place and oriented to time Cranial nerves: Yes Equal, round and reactive pupils present Extrem: General: normal to inspection Other: left lateral elbow was TTP and hurt worse with restricted wrist extension. Course Vital Signs Vital signs: Vital Signs Temperature 97.7 F 01/30/25 15:43 Pulse Rate 74 01/30/25 15:43 Respiratory Rate 16 01/30/25 15:43 Blood Pressure 119/81 01/30/25 15:43 Pulse Oximetry 97 01/30/25 15:43 Oxygen Delivery Room Air 01/30/25 15:43 Temperature 97.7 F 01/30/25 15:43 Pulse Rate 74 01/30/25 15:43 Respiratory Rate 16 01/30/25 15:43 Blood Pressure 119/81 01/30/25 15:43 Pulse Oximetry 97 01/30/25 15:43 Oxygen Delivery Room Air 01/30/25 15:43 Medical Decision Making Vital Signs Vital Signs: Vital Signs Temperature 97.7 F 01/30/25 15:43 Pulse Rate 74 01/30/25 15:43 Respiratory Rate 16 01/30/25 15:43 Blood Pressure 119/81 01/30/25 15:43 Pulse Oximetry 97 01/30/25 15:43 Oxygen Delivery Room Air 01/30/25 15:43 Temperature 97.7 F 01/30/25 15:43 Pulse Rate 74 01/30/25 15:43 Respiratory Rate 16 01/30/25 15:43 Blood Pressure 119/81 01/30/25 15:43 Pulse Oximetry 97 01/30/25 15:43 Oxygen Delivery Room Air 01/30/25 15:43 Discharge Plan Discharge Clinical Impression: Epicondylitis, lateral Patient Disposition: Home Condition: Stable Instructions: [facility]bow (ED) Patient Language: Senegalese Prescriptions: New meloxicam 15 mg tablet 15 mg PO DAILY Qty: 10 0RF meloxicam 15 mg tablet 15 mg PO DAILY Qty: 10 0RF No Action clotrimazole-betamethasone 1-0.05 % cream 1 applic topical BID 14 Days Qty: 45 0RF tramadol 50 mg tablet 50 mg PO Q6H PRN (Reason: Pain) levothyroxine [Synthroid] 75 mcg tablet 50 mcg PO DAILY gabapentin 100 mg capsule 100 mg PO TID rosuvastatin 10 mg tablet 10 mg PO DAILY albuterol sulfate 2.5 mg /3 mL (0.083 %) solution for nebulization 2.5 mg inhalation Q4-6H PRN (Reason: shortness of breath or wheezing) 30 Days Qty: 180 5RF diclofenac sodium 75 mg tablet,delayed release (DR/EC) 75 mg PO DAILY duloxetine 30 mg capsule,delayed release(DR/EC) 60 mg PO DAILY ferrous sulfate 134 mg (27 mg iron) Tablet 134 mg PO DAILY phenazopyridine [Pyridium] 200 mg tablet 200 mg PO TID Qty: 6 0RF ibuprofen 600 mg tablet 600 mg PO TID PRN (Reason: pain) Qty: 30 0RF acetaminophen 500 mg capsule 1,000 mg PO Q6H PRN (Reason: pain) Qty: 30 0RF budesonide 0.5 mg/2 mL suspension for nebulization 0.5 mg inhalation BID 30 Days Qty: 120 5RF Rx Instructions: Take at least 10 hours apart. Rinse and spit after use. revefenacin 175 mcg/3 mL solution for nebulization 175 mcg inhalation DAILY 30 Days Qty: 90 5RF Serevent Diskus 50 mcg/dose blister with device 1 inh inhalation Q12H 30 Days Qty: 60 5RF Follow-up/Referrals: Damon Valenzuela MD [Primary Care Provider] -
--- OUTSIDE RECORDS SUMMARY | 2025-01-30 16:05 | XMS_ITS | Continuity of Care Document ---
Author Organization [facility] Address [address] [place] [address] [place] [address] Phone Care Team Providers Care Stave Hewer Name Role Phone Damon Valenzuela MD Unavailable [...] Providers Copied on Encounter OFFICE/OUTPA TIENT VISIT, [facility], [address], [place], [place], [address], [phone] [facility] [place] rash1 (chief complaint) Tinea corporis Nicolas Murphy [address], [place], [place], [address] , [place]. tel:[phone] OFFICE/OUTPA TIENT VISIT, [facility], [address] [place], [place], [address], [place] tel:[phone] [facility] [place] pannus1 (chief complaint) hand1 (chief complaint) Carpal tunnel syndrome, right upper limbTinea corporisEncounter for oth screening for malignant neoplasm of breast 5 Nicolas Murphy [address], [place], [place], [address] , [place]. tel:[phone] OFFICE/OUTPA TIENT VISIT, [facility], [address] [place], [place], [address], [place] tel:[phone] [facility] [place] cough1 (chief complaint) incontinen ce1 (chief complaint) rash1 (chief complaint) Stress incontinenceAcute bronchitisDisorder of the skinTinea corporis 4 Nicolas Murphy [address], [place], [place], [address] , [place]. tel:[phone] [facility] [place], [address], [place], [place], [address], [place] tel:[phone] [facility] [place] No Information 4 Nicolas Murphy [address], [place], [place], [address] , [place]. tel:[phone] OFFICE/OUTPA TIENT VISIT, [facility], [address], [place], [place], [address], [place] tel:[phone] [facility] [place] back pain1 (chief complaint) rash1 (chief complaint) thyroid1 (chief complaint) Chronic pain syndromeHypothyroid ismTinea corporis 4 Nicolas Jose. [address], [place], [place], [address] , [place]. tel:[phone] OFFICE/OUTPA TIENT VISIT, [facility], [address], [place], [place], [address], [place] tel:[phone] [facility] [place] back pain1 (chief complaint) Chronic pain syndrome 4 Nicolas Jose. [address], [place], [place], [address] , [place]. tel:[phone] [facility] [place], [address], [place], [place], [address], [place] tel:[phone] [facility] [place] No Information 4 Nicolas Jose. [address], [place], [place], [address] , [place]. tel:[phone] OFFICE/OUTPA TIENT VISIT, [facility], [address], [place], [place], [address], [place] tel:[phone] [facility] [place] pain (chief complaint) anxiety1 (chief complaint) HLP (chief complaint) weight loss1 (chief complaint) asthma1 (chief complaint) Generalized Anxiety DisorderAnterior chest-wall painChronic pain syndromeAbnormal weight lossEncntr screen mammogram for malignant neoplasm of breastMixed hyperlipidemiaMild intermittent asthma, uncomplicated 4 Nicolas Jose. [address], [place], [place], [address] , [place]. tel:[phone] OFFICE/OUTPA TIENT VISIT, [facility], [address], [place], [place], [address], [place] tel:[phone] [facility] thyroid1 (chief complaint) pain (chief complaint) depression 1 (chief complaint) chest pain1 (chief complaint) Anterior chest-wall painIron deficiencyHypothyro idismGeneralized Anxiety DisorderOther spondylosis, lumbar region 3 Nicolas Murphy [address], [place], [place], [address] , [place]. [phone] OFFICE/OUTPA TIENT VISIT, EST [facility], [address], [place], [place], [address], [place] tel:[phone] [facility] [place] ferritin1 (chief complaint) ferritin1 (chief complaint) glucose1 (chief complaint) HLP (chief complaint) sick (chief complaint) back pain1 (chief complaint) Iron deficiencyHyperglyc emiaFatigueAnterior chest-wall painAcute sinusitisInconclusi ve mammogram 3 Nicolas Murphy [address], [place], [place], [address] , [place]. [phone] PREV VISIT, EST, AGE 40-64 [facility] [place], [address], [place], [place], [address], [place] tel:[phone] [facility] physical (chief complaint) Encounter for general adult medical examination without abnormal findings 3 Nicolas Murphy [address], [place], [place], [address] , [place]. [phone] OFFICE/OUTPA TIENT VISIT, EST [facility], [address], [place], [place], [address], [place] tel:[phone] [facility] UTI1 (chief complaint) Acute cystitis without hematuria 3 Nicolas Murphy [address], [place], [place], [address] , [place]. [phone] OFFICE/OUTPA TIENT VISIT, EST [facility] [place], [address], [place], [place], [address], [place] tel:[phone] [facility] [place] knee pain1 (chief complaint) back pain1 (chief complaint) Pain in left kneeOther spondylosis, lumbar region 3 Nicolas Jose. [address], [place], [place], [address] , [place]. tel:[phone] OFFICE/OUTPA TIENT VISIT, [facility], [address], [place], [place], [address], [place] tel:[phone] [facility] [place] back pain1 (chief complaint) HLP (chief complaint) ankle 1 (chief complaint) anxiety1 (chief complaint) Abnormal weight gainChronic pain syndromePain in left ankleMixed hyperlipidemiaEncou nter for oth screening for malignant neoplasm of breastEncounter for screening for malignant neoplasm of colon 3 Nicolas Jose. [address], [place], [place], [address] , [place]. tel:[phone] OFFICE/OUTPA TIENT VISIT, [facility], [address], [place], [place], [address], [place] tel:[phone] [facility] [place] ankle pain1 (chief complaint) back pain1 (chief complaint) Pain in left ankleEdemaOther spondylosis, lumbar region 3 Nicolas Jose. [address], [place], [place], [address] , [place]. tel:[phone] OFFICE/OUTPA TIENT VISIT, [facility], [address], [place], [place], [address], [place] tel:[phone] [facility] [place] back pain1 (chief complaint) thyroid1 (chief complaint) weight gain1 (chief complaint) Chronic pain syndromeHypothyroid ismOther spondylosis, lumbar regionAbnormal weight gain 3 Nicolas Jose. [address], [place], [place], [address] , [place]. tel:[phone] OFFICE/OUTPA TIENT VISIT, [facility], [address], [place], [place], [address], [place] tel:[phone] [facility] [place] thyroid (chief complaint) back pain1 (chief complaint) Other spondylosis, lumbar regionHypothyroidis mChronic pain syndrome 2 Nicloas Murphy [address], [place], [place], [address] , [place]. tel:[phone] OFFICE/OUTPA TIENT VISIT, [facility], [address], [address], [place] tel:[phone] [facility] [place] back pain1 (chief complaint) edema1 (chief complaint) anxiety1 (chief complaint) Chronic pain syndromeEdemaGenera lized Anxiety Disorder 2 Nicolas Murphy [address], [place], [place], [address] , [place]. tel:[phone] OFFICE/OUTPA TIENT VISIT, [facility], [address], [place], [address], [place] tel:[phone] [facility] [place] back pain1 (chief complaint) UTI1 (chief complaint) thyroid1 (chief complaint) Acute cystitis without hematuriaLumbago with sciatica, right sideHypothyroidism 2 Nicolas Murphy [address], [place], [place], [address] , [place]. tel:[phone] OFFICE/OUTPA TIENT VISIT, [facility], [address] [place], [place], [address], [place] tel:[phone] [facility] [place] back pain1 (chief complaint) Acute cystitis without hematuriaLumbago with sciatica, right side 2 Nicolas Jose. [address], [place], [place], [address] , [place]. tel:[phone] OFFICE/OUTPA TIENT VISIT, [facility], [address] [place], [place], [address], [place] tel:[phone] [facility] [place] UTI1 (chief complaint) ferritin1 (chief complaint) thyroid (chief complaint) HLP (chief complaint) Acute cystitis without hematuriaIron deficiencyMixed hyperlipidemiaHypot hyroidismEncounter for oth screening for malignant neoplasm of breast 2 Nicolas Murphy [address], [place], [place], [address] , [place]. tel:[phone] PREV VISIT, EST, AGE 40-64 [facility] [place], [address], [place], [place], [address], [place] tel:[phone] [facility] [place] physical (chief complaint) Encounter for general adult medical examination without abnormal findings 2 Nicolas Murphy [address], [place], [place], [address] , [place]. tel: [phone] OFFICE/OUTPA TIENT VISIT, [facility], [address], [place], [place], [address], [place] tel:[phone] [facility] [place] anxiety1 (chief complaint) HLP (chief complaint) back pain1 (chief complaint) Generalized Anxiety DisorderChronic pain syndromeHyperlipide kevin 2 Nicolas Murphy [address], [place], [place], [address] , [place]. tel: [phone] OFFICE/OUTPA TIENT VISIT, [facility], [address], [place], [place], [address], [place] tel:[phone] [facility] [place] pain (chief complaint) anxiety1 (chief complaint) Chronic pain syndromeGeneralized Anxiety Disorder 2 Nicolas Jose. [address], [place], [place], [address] , [place]. tel:[phone] OFFICE/OUTPA TIENT VISIT, EST [facility] [place], [address], [place], [place], [address], [place] tel:[phone] [facility] [place] hematuria1 (chief complaint) pain1 (chief complaint) depression 1 (chief complaint) Chronic pain syndromeHematuriaDe pression 1 Nicolas Murphy [address], [place], [place], [address] , [place]. [phone] OFFICE/OUTPA TIENT VISIT, [facility], [address], [place], [place], [address], [place] tel:[phone] [facility] [place] HLP (chief complaint) hematuria1 (chief complaint) low ferritin1 (chief complaint) thyroid1 (chief complaint) pain (chief complaint) weight gain1 (chief complaint) HyperlipidemiaIron deficiency anemia, unspecifiedHypothyr oidismVitamin D deficiency, unspecifiedUrinary tract infectionChronic pain syndromeAbnormal weight gain 1 Nicolas Murphy [address], [place], [place], [address] , [place]. tel:[phone] PREV VISIT, EST, AGE 40-64 [facility] [place], [address], [place], [place], [address], [place] tel:[phone] [facility] physical (chief complaint) Encounter for general adult medical examination without abnormal findings 1 Nicolas Murphy [address], [place], [place], [address] , [place]. tel:[phone] OFFICE/OUTPA TIENT VISIT, [facility], [address], [place], [place], [address], [place] tel:[phone] [facility] [place] pain1 (chief complaint) fatigue1 (chief complaint) Chronic pain syndromeFatigue 1 Nicolas Murphy [address], [place], [place], [address] , [place]. tel:[phone] OFFICE/OUTPA TIENT VISIT, [facility], [address], [place], [place], [address], [place] tel:[phone] [facility] pain (chief complaint) HLP (chief complaint) fatigue1 (chief complaint) HyperlipidemiaChron ic pain syndromeEncounter for oth screening for malignant neoplasm of breastFatigue 1 Nicolas Murphy [address], [place], [place], [address] , [place]. [phone] OFFICE/OUTPA TIENT VISIT, EST [facility] [place], [address], [place], [place], [address], [place] tel:[phone] [facility] [place] HLP (chief complaint) anemia1 (chief complaint) back pain1 (chief complaint) fatigue1 (chief complaint) Iron deficiency anemia, unspecifiedHyperlip idemiaChronic pain syndromeFatigue 0 Nicolas Jose. [address], [place], [place], [address] , [place]. [phone] OFFICE/OUTPA TIENT VISIT, EST [facility] [place], [address], [place], [place], [address], [place] tel:[phone] [facility] [place] HLP (chief complaint) anemia1 (chief complaint) D (chief complaint) fatigue1 (chief complaint) FatigueHypothyroidi smIron deficiency anemiaVitamin D deficiency, unspecifiedHyperlip idemia 0 Nicolas Jose. [address], [place], [place], [address] , [place]. tel:[phone] Referring Provider: Damon Valenzuela [address], [place], [place], [address]. tel:[phone] PREV VISIT, EST, AGE 40-64 [facility] [place], [address], [place], [place], [address], [place] tel:[phone] [facility] [place] physical (chief complaint) Encntr for general adult medical exam w/o abnormal findings 0 Nicolas Jose. [address], [place], [place], [address] , [place]. tel:[phone] Referring Provider: Damon Valenzuela [address], [place], [place], [address]. tel:[phone] OFFICE/OUTPA TIENT VISIT, EST [facility] [place], [address], [place], [place], [address], [place] tel:[phone] [facility] back pain1 (chief complaint) thyroid1 (chief complaint) HypothyroidismChron ic pain syndrome 0 Nicolas D[address], [place], [place], [address] , [place]. [phone] Referring Provider: Tico Guadarrama [address], [place], [place], [address]. tel:[phone] OFFICE/OUTPA TIENT VISIT, [facility], [address], [place], [place], [address], [place] [phone] [facility] [place] Hematuria1 (chief complaint) back pain1 (chief complaint) throat CA (chief complaint) skin1 (chief complaint) Chronic pain syndromeHematuriaMa lignant neoplasm of tongue, unspecifiedCellulit is of left upper limb 0 Nicolas D[address], [place], [place], [address] , [place]. tel:[phone] Referring Provider: [address], [place], [place], [address]. tel:[phone] OFFICE/OUTPA TIENT VISIT, [facility], [address], [place], [place], [address], [place] tel:[phone] [facility] [place] hematuria1 (chief complaint) back pain1 (chief complaint) skin1 (chief complaint) HematuriaChronic pain syndromeCellulitis of left upper limbFlushing 9 Nicolas D[address], [place], [place], [address] , [place]. tel:[phone] Referring Provider: Tico Guadarrama [address], [place], [place], [address]. tel:[phone] OFFICE/OUTPA TIENT VISIT, [facility], [address], [place], [place], [address], [place] tel:[phone] [facility] [place] hematuria1 (chief complaint) back pain1 (chief complaint) thyroid1 (chief complaint) HematuriaHypothyroi dismChronic pain syndromeIrregular period Aug- 9 Valenzuela Damon. [address], [place], [place], [address] , [place]. [phone] Referring Provider: Tico Guadarrama [address], [place], [place], [address]. tel:[phone] OFFICE/OUTPA TIENT VISIT, EST [facility] [place], [address], [place], [place], [address], [place] tel:[phone] [facility] [place] hematuria1 (chief complaint) hypothyroi dism1 (chief complaint) back pain1 (chief complaint) HematuriaHypothyroi dismChronic pain syndrome 9 Nicolas Murphy [address], [place], [place], [address] , [place]. [phone] Referring Provider: Tico Guadarrama [address], [place], [place], [address]. tel:[phone] OFFICE/OUTPA TIENT VISIT, EST [facility] [place], [address], [place], [place], [address], [place] tel:[phone] [facility] [place] thyroid1 (chief complaint) low iron1 (chief complaint) knee pain1 (chief complaint) back pain1 (chief complaint) HypothyroidismIron deficiency anemia, unspecifiedChronic pain syndromePain in left kneeHematuria 9 Nicolas Joes. [address], [place], [place], [address] , [place]. [phone] Referring Provider: Tico Guadarrama [address], [place], [place], [address]. tel:[phone] PREV VISIT, EST, AGE 40-64 [facility] [place], [address], [place], [place], [address], [place] tel:[phone] [facility] [place] Physical (chief complaint) Encntr for general adult medical exam w/o abnormal findings 9 Nicolas Jose. [address], [place], [place], [address] , [place]. [phone] Referring Provider: Tico Guadarrama [address], [place], [place], [address]. tel:[phone] OFFICE/OUTPA TIENT VISIT, [facility], [address], [place], [place], [address], [place] tel:[phone] [facility] [place] back pain1 (chief complaint) COPD (chief complaint) malnutriti on1 (chief complaint) Chronic pain syndromeEmphysemaDy sphagia Fe0 5201 9 Nicolas Jose. [address], [place], [place], [address] , [place]. tel:[phone] Referring Provider: Tico Guadarrama [facility], [place], [place], [address]. tel:[phone] OFFICE/OUTPA TIENT VISIT, [facility], [address], [place], [place], [address], [place] tel:[phone] [facility] [place] thyroid1 (chief complaint) Anemia1 (chief complaint) LBP1 (chief complaint) COPD1 (chief complaint) EmphysemaHypothyroi dismAnemiaChronic pain syndrome 0 5 8 Nicolas Jose. [address], [place], [place], [address] , [place]. [phone] Referring Provider: [address], [place], [place], [address]. tel:[phone] OFFICE/OUTPA TIENT VISIT, [facility], [address], [place], [place], [address], [place] tel:[phone] [facility] [place] back pain1 (chief complaint) SOB1 (chief complaint) anemia1 (chief complaint) EmphysemaHypothyroi dismAnemiaChronic pain syndromeHematuria 8201 8 Nicolas Jose. [address], [place], [place], [address] , [place]. [phone] Referring Provider: [address], [place], [place], [address]. tel:[phone] OFFICE/OUTPA TIENT VISIT, [facility], [address], [place], [place], [address], [place] tel:[phone] [facility] [place] HYpothyroi dism1 (chief complaint) back pain1 (chief complaint) hematuria1 (chief complaint) copd1 (chief complaint) EmphysemaHypothyroi dismChronic pain syndromeAnemia Jun-0 8201 8 Nicolas Jose. [address], [place], [place], [address] , [place]. [phone] Referring Provider: Tico Guadarrama [address], [place], [place], [address]. tel:[phone] OFFICE/OUTPA TIENT VISIT, [facility], [address], [place], [place], [address], [place] tel:[phone] [facility] [place] back pain1 (chief complaint) sob1 (chief complaint) thyroid (chief complaint) hematuria1 (chief complaint) EmphysemaHypothyroi dismHematuriaChroni c pain syndromeAnemountain view regional medical center Sep-0 7201 8 Nicolas Jose. [address], [place], [place], [address] , [place]. tel:[phone] Referring Provider: [address], [place], [place], [address]. tel:[phone] OFFICE/OUTPA TIENT VISIT, [facility], [address], [place], [place], [address], [place] tel:[phone] [facility] sob1 (chief complaint) hypothyroi dism1 (chief complaint) anemia1 (chief complaint) back pain1 (chief complaint) EmphysemaAnemiaHypo thyroidismChronic pain syndrome Apr-0 8 8 Nicolas Jose. [address], [place], [place], [address] , [place]. tel:[phone] Referring Provider: Tico Guadarrama [address], [place], [place], [address]. tel:[phone] OFFICE/OUTPA TIENT VISIT, [facility], [address], [place], [place], [address], [place] tel:[phone] [facility] Anemia1 (chief complaint) low thyroid1 (chief complaint) sob1 (chief complaint) back pain. 1 (chief complaint) HypothyroidismAnemi aLumbagoDyspnea 8 Nicolas Jose. [address], [place], [place], [address] , [place]. [phone] Referring Provider: Damon Valenzuela, [address], [place], [place], [address]. tel:[phone] OFFICE/OUTPA TIENT VISIT, [facility], [address], [place], [place], [address], [place] tel:[phone] [facility] [place] hematuria1 (chief complaint) thyroid (chief complaint) anemia1 (chief complaint) back pain1 (chief complaint) HematuriaHypothyroi dismIron deficiency anemia, unspecifiedLumbago 8 Nicolas Jose. [address], [place], [place], [address] , [place]. [phone] Referring Provider: T[address], [place], [place], [address]. tel:[phone] OFFICE/OUTPA TIENT VISIT, [facility], [address], [place], [place], [address], [place] tel:[phone] [facility] [place] chronic pain (chief complaint) sob (chief complaint) shoudler pain1 (chief complaint) DyspneaLumbagoPain in left shoulder Nov-0 8 Nicolas Jose. [address], [place], [place], [address] , [place]. [phone] Referring Provider: Tico Guadarrama [address], [place], [place], [address]. tel:[phone] PREV VISIT, NEW, AGE 40-64 [facility] [place], [address], [place], [place], [address], [place] tel:[phone] [facility] Physical (chief complaint) Encntr for general adult medical exam w/o abnormal findings 7 Nicolas Jose. [address], [place], [place], [address] , [place]. tel:[phone] Referring Provider: Damon Valenzuela, [address], [place], [place], [address]. tel:[phone] Family History Family Member Type Diagnosis Age At Onset Father Problem (finding) Hypertension Mother Problem (finding) of lung Ca 65 Father Problem (finding) uknown cancer Mother Problem (finding) Payers Payer name Insurance type Covered alliance party ID Authoriza tion(s) No Information Social [...] ordered Referral Referred To: Vin Pérez [address], [place], [phone] Ordered: Referrals: Allopathic & Osteopathic Physicians : Plastic Surgery. Vin Pérez. Evaluate and treat ordered Referral Referred To: Angel Au [address] [place] [address], [phone] Ordered: Referrals: Angel Au. Evaluate and treat ordered Referral Ordered: Physical Therapy (related to Pain in left knee) ordered Referral Referred To: Monica LUNDY, Sudhir Simon [address]
[place] [address] [place] [address], [phone] Ordered: Referrals: Monica LUNDY, Sudhir Simon. Evaluate and treat ordered Referral Ordered: COLONOSCOPY AND BIOPSY ordered Referral Ordered: NAHUN MARQUEZ -Podiatric Medicine & Surgery Service Providers : Dermatology Sales Representative (related to Pain in left ankle) ordered Referral Referred To: NAHUN MARQUEZ [address] [facility] [place], [phone] Ordered: Referrals: Podiatric Medicine & Surgery Service Providers : Dermatology Sales Representative. NAHUN MARQUEZ. Evaluate and treat ordered Referral [...] [place] [address] [place], [place] [phone] Ordered: Referrals: Allopathic & Osteopathic Physicians : [...] exam w/o abnormal findings) ordered Referral Ordered: [facility] (related to Encntr for general adult medical exam w/o abnormal findings) ordered Referral Referred To: [facility] [address] [place] [address] Ordered: Referrals: [facility]. Evaluate and treat ordered Referral Ordered: MAMMOGRAM, SCREENING ordered Ref [id number]|2025-01-30 18:47:03|2025-01-30 18:47:03|PC.NURSE||||"pt uncomfortable sitting on cot. walks around room. no needs at this time. awaiting type and cross completion. "
== END 2025-01-30 16:14 | disposition home or self-care (01) ==
LOC: CHSED 16:03
PROVIDERS: Emergency Provider Family Medicine; PCP Emergency Medicine
DX: M77.12 Lateral epicondylitis, left elbow (principal); Z85.810 Personal history of malignant neoplasm of tongue; J44.9 Chronic obstructive pulmonary disease, unspecified; I50.9 Heart failure, unspecified; E78.5 Hyperlipidemia, unspecified; E03.9 Hypothyroidism, unspecified; F17.290 Nicotine dependence, other tobacco product, uncomplicated
CPT/HCPCS: 99283

== ENCOUNTER 2025-02-02 08:38 | Outpatient (CLI) | payer OTHER, SELFPAY ==
--- OUTSIDE RECORDS SUMMARY | 2025-02-02 09:19 | XMS_ITS | Continuity of Care Document ---
Author Organization [facility] Address [address] [place] [address] Phone Care Team Providers Care Fishing Hand Name Role Phone Damon Valenzuela MD Unavailable [...] Providers Copied on Encounter OFFICE/OUTPA TIENT VISIT, [facility], [address], [place], [place], [address], tel:[phone] [facility] rash1 (chief complaint) Tinea corporis Nicolas Murphy [address], [place], [place], [address] , [place]. tel:[phone] OFFICE/OUTPA TIENT VISIT, [facility], [address], [place], [place], [address], [place] tel:[phone] [facility] pannus1 (chief complaint) hand1 (chief complaint) Carpal tunnel syndrome, right upper limbTinea corporisEncounter for oth screening for malignant neoplasm of breast 5 Nicolas Murphy [address], [place], [place], [address] , [place]. tel:[phone] OFFICE/OUTPA TIENT VISIT, [facility], [address], [place], [place], [address], [place] tel:[phone] [facility] cough1 (chief complaint) incontinen ce1 (chief complaint) rash1 (chief complaint) Stress incontinenceAcute bronchitisDisorder of the skinTinea corporis 4 Nicolas Murphy [address], [place], [place], [address] , [place]. tel:[phone] [facility], [address], [place], [place], [address], [place] tel:[phone] [facility] No Information 4 Nicolas Murphy [address], [place], [place], [address] , [place]. tel:[phone] OFFICE/OUTPA TIENT VISIT, [facility], [address], [place], [place], [address], [place] tel:[phone] [facility] back pain1 (chief complaint) rash1 (chief complaint) thyroid1 (chief complaint) Chronic pain syndromeHypothyroid ismTinea corporis 4 Nicolas Jose. [address], [place], [place], [address] , [place]. tel:[phone] OFFICE/OUTPA TIENT VISIT, [facility], [address], [place], [place], [address], [place] tel:[phone] [facility] back pain1 (chief complaint) Chronic pain syndrome 4 Nicolas Jose. [address], [place], [place], [address] , [place]. tel:[phone] [facility], [address], [place], [place], [address], [place] tel:[phone] [facility] No Information 4 Nicolas Jose. [address], [place], [place], [address] , [place]. tel:[phone] OFFICE/OUTPA TIENT VISIT, [facility], [address], [place], [place], [address], [place] tel:[phone] [facility] pain (chief complaint) anxiety1 (chief complaint) HLP (chief complaint) weight loss1 (chief complaint) asthma1 (chief complaint) Generalized Anxiety DisorderAnterior chest-wall painChronic pain syndromeAbnormal weight lossEncntr screen mammogram for malignant neoplasm of breastMixed hyperlipidemiaMild intermittent asthma, uncomplicated 4 Nicolas Jose. [address], [place], [place], [address] , [place]. tel:[phone] OFFICE/OUTPA TIENT VISIT, [facility], [address], [place], [place], [address], [place] tel:[phone] [facility] thyroid1 (chief complaint) pain (chief complaint) depression 1 (chief complaint) chest pain1 (chief complaint) Anterior chest-wall painIron deficiencyHypothyro idismGeneralized Anxiety DisorderOther spondylosis, lumbar region 3 Nicolas Murphy [address], [place], [place], [address] , [place]. [phone] OFFICE/OUTPA TIENT VISIT, EST [facility], [address], [place], [place], [address], [place] tel:[phone] [facility] ferritin1 (chief complaint) ferritin1 (chief complaint) glucose1 (chief complaint) HLP (chief complaint) sick (chief complaint) back pain1 (chief complaint) Iron deficiencyHyperglyc emiaFatigueAnterior chest-wall painAcute sinusitisInconclusi ve mammogram 3 Nicolas Murphy [address], [place], [place], [address] , [place]. [phone] PREV VISIT, EST, AGE 40-64 [facility], [address], [place], [place], [address], [place] tel:[phone] [facility] physical (chief complaint) Encounter for general adult medical examination without abnormal findings 3 Nicolas Murphy [address], [place], [place], [address] , [place]. tel:[phone] OFFICE/OUTPA TIENT VISIT, EST [facility], [address], [place], [place], [address], [place] tel:[phone] [facility] UTI1 (chief complaint) Acute cystitis without hematuria 3 Nicolas Murhpy [address], [place], [place], [address] , [place]. [phone] OFFICE/OUTPA TIENT VISIT, EST [facility], [address], [place], [place], [address], [place] tel:[phone] [facility] knee pain1 (chief complaint) back pain1 (chief complaint) Pain in left kneeOther spondylosis, lumbar region 3 Nicolas Jose. [address], [place], [place], [address] , [place]. tel:[phone] OFFICE/OUTPA TIENT VISIT, [facility], [address], [place], [place], [address], [place] tel:[phone] [facility] back pain1 (chief complaint) HLP (chief complaint) ankle 1 (chief complaint) anxiety1 (chief complaint) Abnormal weight gainChronic pain syndromePain in left ankleMixed hyperlipidemiaEncou nter for oth screening for malignant neoplasm of breastEncounter for screening for malignant neoplasm of colon 3 Nicolas Jose. [address], [place], [place], [address] , [place]. tel:[phone] OFFICE/OUTPA TIENT VISIT, [facility], [address], [place], [place], [address], [place] tel:[phone] [facility] ankle pain1 (chief complaint) back pain1 (chief complaint) Pain in left ankleEdemaOther spondylosis, lumbar region 3 Nicolas Jose. [address], [place], [place], [address] , [place]. tel:[phone] OFFICE/OUTPA TIENT VISIT, [facility], [address], [place], [place], [address], [place] tel:[phone] [facility] back pain1 (chief complaint) thyroid1 (chief complaint) weight gain1 (chief complaint) Chronic pain syndromeHypothyroid ismOther spondylosis, lumbar regionAbnormal weight gain 3 Nicolas Jose. [address], [place], [place], [address] , [place]. tel:[phone] OFFICE/OUTPA TIENT VISIT, [facility], [address], [place], [place], [address], [place] tel:[phone] [facility] thyroid (chief complaint) back pain1 (chief complaint) Other spondylosis, lumbar regionHypothyroidis mChronic pain syndrome 2 Nicolas Jose. [address], [place], [place], [address] , [place]. tel:[phone] OFFICE/OUTPA TIENT VISIT, [facility], [address] [place] [place], [address], [place] tel:[phone] [facility] back pain1 (chief complaint) edema1 (chief complaint) anxiety1 (chief complaint) Chronic pain syndromeEdemaGenera lized Anxiety Disorder 2 Nicolas Jose. [address], [address] [place], [address] , [place]. tel:[phone] OFFICE/OUTPA TIENT VISIT, [facility], [address] [place], [address], [place] tel:[phone] [facility] back pain1 (chief complaint) UTI1 (chief complaint) thyroid1 (chief complaint) Acute cystitis without hematuriaLumbago with sciatica, right sideHypothyroidism 2 Nicolas Jose. [address] [place], [address] , [place]. tel:[phone] OFFICE/OUTPA TIENT VISIT, [facility], [address] [place], [address], [place] tel:[phone] [facility] back pain1 (chief complaint) Acute cystitis without hematuriaLumbago with sciatica, right side 2 Nicolas Jose. [address], [address] [place], [address] , [place]. tel:[phone] OFFICE/OUTPA TIENT VISIT, [facility], [address] [place], [address], [place] tel:[phone] [facility] UTI1 (chief complaint) ferritin1 (chief complaint) thyroid (chief complaint) HLP (chief complaint) Acute cystitis without hematuriaIron deficiencyMixed hyperlipidemiaHypot hyroidismEncounter for oth screening for malignant neoplasm of breast 2 Nicolas Jose. [address], [place], [place], [address] , [place]. tel:[phone] PREV VISIT, EST, AGE 40-64 [facility], [address], [place], [place], [address], [place] tel:[phone] [facility] physical (chief complaint) Encounter for general adult medical examination without abnormal findings 2 Nicolas Jose. [address], [place], [place], [address] , [place]. tel:[phone] OFFICE/OUTPA TIENT VISIT, [facility], [address], [place], [place], [address], [place] tel:[phone] [facility] anxiety1 (chief complaint) HLP (chief complaint) back pain1 (chief complaint) Generalized Anxiety DisorderChronic pain syndromeHyperlipide kevin 2 Nicolas Murphy [address], [place], [place], [address] , [place]. tel:[phone] OFFICE/OUTPA TIENT VISIT, [facility], [address], [place], [place], [address], [place] tel:[phone] [facility] pain (chief complaint) anxiety1 (chief complaint) Chronic pain syndromeGeneralized Anxiety Disorder 2 Nicolas Jose. [address], [place], [place], [address] , [place]. tel:[phone] OFFICE/OUTPA TIENT VISIT, EST [facility], [address], [place], [place], [address], [place] tel:[phone] [facility] hematuria1 (chief complaint) pain1 (chief complaint) depression 1 (chief complaint) Chronic pain syndromeHematuriaDe pression 1 Nicolas Murphy [address], [place], [place], [address] , [place]. [phone] OFFICE/OUTPA TIENT VISIT, EST [facility], [address], [place], [place], [address], [place] tel:[phone] [facility] HLP (chief complaint) hematuria1 (chief complaint) low ferritin1 (chief complaint) thyroid1 (chief complaint) pain (chief complaint) weight gain1 (chief complaint) HyperlipidemiaIron deficiency anemia, unspecifiedHypothyr oidismVitamin D deficiency, unspecifiedUrinary tract infectionChronic pain syndromeAbnormal weight gain 1 Nicolas Murphy [address], [place], [place], [address] , [place]. tel:[phone] PREV VISIT, EST, AGE 40-64 [facility], [address], [place], [place], [address], [place] tel:[phone] [facility] physical (chief complaint) Encounter for general adult medical examination without abnormal findings 1 Nicolas Murphy [address], [place], [place], [address] , [place]. tel:[phone] OFFICE/OUTPA TIENT VISIT, EST [facility], [address], [place], [place], [address], [place] tel:[phone] [facility] pain1 (chief complaint) fatigue1 (chief complaint) Chronic pain syndromeFatigue 1 Nicolas Murphy [address], [place], [place], [address] , [place]. tel:[phone] OFFICE/OUTPA TIENT VISIT, [facility], [address], [place], [place], [address], [place] tel:[phone] [facility] pain (chief complaint) HLP (chief complaint) fatigue1 (chief complaint) HyperlipidemiaChron ic pain syndromeEncounter for oth screening for malignant neoplasm of breastFatigue 1 Nicolas Murphy [address], [place], [place], [address] , [place]. tel:[phone] OFFICE/OUTPA TIENT VISIT, EST [facility], [address], [place], [place], [address], [place] tel:[phone] [facility] HLP (chief complaint) anemia1 (chief complaint) back pain1 (chief complaint) fatigue1 (chief complaint) Iron deficiency anemia, unspecifiedHyperlip idemiaChronic pain syndromeFatigue 0 Nicolas Jose. [address], [place], [place], [address] , [place]. [phone] OFFICE/OUTPA TIENT VISIT, EST [facility], [address], [place], [place], [address], [place] tel:[phone] [facility] HLP (chief complaint) anemia1 (chief complaint) D (chief complaint) fatigue1 (chief complaint) FatigueHypothyroidi smIron deficiency anemiaVitamin D deficiency, unspecifiedHyperlip idemia 0 Nicolas Jose. [address], [place], [place], [address] , [place]. [phone] Referring Provider: Damon Valenzuela [address], [place], [place], [address]. tel:[phone] PREV VISIT, EST, AGE 40-64 [facility], [address], [place], [place], [address], [place] tel:[phone] [facility] physical (chief complaint) Encntr for general adult medical exam w/o abnormal findings 0 Nicolas Jose. [address], [place], [place], [address] , [place]. [phone] Referring Provider: Tico Guadarr[address], [place], [place], [address]. tel:[phone] OFFICE/OUTPA TIENT VISIT, EST [facility], [address], [place], [place], [address], [place] tel:[phone] [facility] back pain1 (chief complaint) thyroid1 (chief complaint) HypothyroidismChron ic pain syndrome 0 Nicolas D[address], [place], [place], [address] , [place]. tel:[phone] Referring Provider: Tico Guadarrama [address], [place], [place], [address]. tel:[phone] OFFICE/OUTPA TIENT VISIT, [facility], [address], [place], [place], [address], [place] [phone] [facility] Hematuria1 (chief complaint) back pain1 (chief complaint) throat CA (chief complaint) skin1 (chief complaint) Chronic pain syndromeHematuriaMa lignant neoplasm of tongue, unspecifiedCellulit is of left upper limb 0 Nicolas D[address], [place], [place], [address] , [place]. tel:[phone] Referring Provider: [address], [place], [place], [address]. tel:[phone] OFFICE/OUTPA TIENT VISIT, [facility], [address], [place], [place], [address], [place] [phone] [facility] hematuria1 (chief complaint) back pain1 (chief complaint) skin1 (chief complaint) HematuriaChronic pain syndromeCellulitis of left upper limbFlushing 9 Nicolas D[address], [place], [place], [address] , [place]. tel:[phone] Referring Provider: Tico Guadarrama [address], [place], [place], [address]. tel:[phone] OFFICE/OUTPA TIENT VISIT, [facility], [address], [place], [place], [address], [place] tel:[phone] [facility] hematuria1 (chief complaint) back pain1 (chief complaint) thyroid1 (chief complaint) HematuriaHypothyroi dismChronic pain syndromeIrregular period 9 Valenzuela Damon. [address], [place], [place], [address] , [place]. [phone] Referring Provider: Tico Guadarr[address], [place], [place], [address]. tel:[phone] OFFICE/OUTPA TIENT VISIT, EST [facility], [address], [place], [place], [address], [place] tel:[phone] [facility] hematuria1 (chief complaint) hypothyroi dism1 (chief complaint) back pain1 (chief complaint) HematuriaHypothyroi dismChronic pain syndrome 9 Nicolas Jose. [address], [place], [place], [address] , [place]. tel:[phone] Referring Provider: Tico Guadarrama [address], [place], [place], [address]. tel:[phone] OFFICE/OUTPA TIENT VISIT, EST [facility], [address], [place], [place], [address], [place] tel:[phone] [facility] thyroid1 (chief complaint) low iron1 (chief complaint) knee pain1 (chief complaint) back pain1 (chief complaint) HypothyroidismIron deficiency anemia, unspecifiedChronic pain syndromePain in left kneeHematuria 9 Nicolas Jose. [address], [place], [place], [address] , [place]. [phone] Referring Provider: Tico Guadarrama [address], [place], [place], [address]. tel:[phone] PREV VISIT, EST, AGE 40-64 [facility], [address], [place], [place], [address], [place] tel:[phone] [facility] Physical (chief complaint) Encntr for general adult medical exam w/o abnormal findings 9 Nicolas Jose. [address], [place], [place], [address] , [place]. [phone] Referring Provider: Tico Guadarrama [address], [place], [place], [address]. tel:[phone] OFFICE/OUTPA TIENT VISIT, [facility], [address], [place], [place], [address], [place] tel:[phone] [facility] back pain1 (chief complaint) COPD (chief complaint) malnutriti on1 (chief complaint) Chronic pain syndromeEmphysemaDy sphagia Fe0 9 Nicolas Jose. [address], [place], [place], [address] , [place]. tel:[phone] Referring Provider: Tico Guadarrama [facility], [place], [place], [address]. tel:[phone] OFFICE/OUTPA TIENT VISIT, [facility], [facility] [address], [place], [place], [address], [place] tel:[phone] [facility] thyroid1 (chief complaint) Anemia1 (chief complaint) LBP1 (chief complaint) COPD1 (chief complaint) EmphysemaHypothyroi dismAnemiaChronic pain syndrome 0 8 Nicolas Jose. [address], [place], [place], [address] , [place]. tel:[phone] Referring Provider: [address], [place], [place], [address]. tel:[phone] OFFICE/OUTPA TIENT VISIT, [facility], [address], [place], [place], [address], [place] tel:[phone] [facility] back pain1 (chief complaint) SOB1 (chief complaint) anemia1 (chief complaint) EmphysemaHypothyroi dismAnemiaChronic pain syndromeHematuria 201 8 Nicolas Murphy [address], [place], [place], [address] , [place]. tel:[phone] Referring Provider: [address], [place], [place], [address]. tel:[phone] OFFICE/OUTPA TIENT VISIT, [facility], [address], [place], [place], [address], [place] tel:[phone] [facility] HYpothyroi dism1 (chief complaint) back pain1 (chief complaint) hematuria1 (chief complaint) copd1 (chief complaint) EmphysemaHypothyroi dismChronic pain syndromeAnemia Jun-0 8201 8 Nicolas Jose. [address], [place], [place], [address] , [place]. tel:[phone] Referring Provider: Tico Guadarrama [address], [place], [place], [address]. tel:[phone] OFFICE/OUTPA TIENT VISIT, [facility], [address], [place], [place], [address], [place] tel:[phone] [facility] back pain1 (chief complaint) sob1 (chief complaint) thyroid (chief complaint) hematuria1 (chief complaint) EmphysemaHypothyroi dismHematuriaChroni c pain syndromeAnenew [facility] May-0 7201 8 Nicolas Jose. [address], [place], [place], [address] , [place]. tel:[phone] Referring Provider: [address], [place], [place], [address]. tel:[phone] OFFICE/OUTPA TIENT VISIT, [facility], [address], [place], [place], [address], [place] tel:[phone] [facility] sob1 (chief complaint) hypothyroi dism1 (chief complaint) anemia1 (chief complaint) back pain1 (chief complaint) EmphysemaAnemiaHypo thyroidismChronic pain syndrome Apr-0 8 8 Nicolas Jose. [address], [place], [place], [address] , [place]. tel:[phone] Referring Provider: [address], [place], [place], [address]. tel:[phone] OFFICE/OUTPA TIENT VISIT, [facility], [address], [place], [place], [address], [place] tel:[phone] [facility] Anemia1 (chief complaint) low thyroid1 (chief complaint) sob1 (chief complaint) back pain. 1 (chief complaint) HypothyroidismAnemi aLumbagoDyspnea 8 Nicolas Jose. [address], [place], [place], [address] , [place]. tel:[phone] Referring Provider: Damon Valenzuela, [address], [place], [place], [address]. tel:[phone] OFFICE/OUTPA TIENT VISIT, [facility], [address], [place], [place], [address], [place] tel:[phone] [facility] hematuria1 (chief complaint) thyroid (chief complaint) anemia1 (chief complaint) back pain1 (chief complaint) HematuriaHypothyroi dismIron deficiency anemia, unspecifiedLumbago 8 Nicolas Jose. [address], [place], [place], [address] , [place]. tel:[phone] Referring Provider: [address], [place], [place], [address]. tel:[phone] OFFICE/OUTPA TIENT VISIT, [facility], [address], [place], [place], [address], [place] tel:[phone] [facility] chronic pain (chief complaint) sob (chief complaint) shoudler pain1 (chief complaint) DyspneaLumbagoPain in left shoulder Nov-0 8 Nicolas Jose. [address], [place], [place], [address] , [place]. tel:[phone] Referring Provider: Tico Guadarrama [address], [place], [place], [address]. tel:[phone] PREV VISIT, NEW, AGE 40-64 [facility], [address], [place], [place], [address], [place] tel:[phone] [facility] Physical (chief complaint) Encntr for general adult medical exam w/o abnormal findings 7 Valenzuela Damon. [address], [place], [place], [address] , [place]. tel:[phone] Referring Provider: Damon Valenzuela, [address], [place], [place], [address]. tel:[phone] Family History Family Member Type Diagnosis Age [...] completed Goal Tobacco cessation counseling completed Goal Tobacco cessation counseling completed Goal Special diet education compl eted Goal Special diet education compl eted Goal Special diet education compl eted Referral Ordered: MOTOR NERVE CONDUCTION TEST ordered Referral Ordered: Vin Pérez -Allopathic & Osteopathic Physicians : Plastic Surgery (related to Disorder of the skin) ordered Referral Referred To: Vin Pérez [address] [place], [place], [phone] Ordered: Referrals: Allopathic & Osteopathic Physicians : Plastic Surgery. Vin Pérez. Evaluate and treat ordered Referral Referred To: Angel Au [address] [place] [address], [phone] Ordered: Referrals: Angel Au. Evaluate and treat ordered Referral Ordered: Physical Therapy (related to Pain in left knee) ordered Referral Referred To: Monica LUNDY, Sudhir Bryant S [facility]
[place] [address] [place] [address], [phone] Ordered: Referrals: Monica LUNDY, Suhdir Simon. Evaluate and treat ordered Referral Ordered: COLONOSCOPY AND BIOPSY ordered Referral Ordered: NAHUN MARQUEZ -Podiatric Medicine & Surgery Service Providers : [employer] Manager (related to Pain in left ankle) ordered Referral Referred To: NAHUN MARQUEZ [address] [facility] [place], [place], [phone] Ordered: Referrals: Podiatric Medicine & Surgery Service Providers : Hydro Generation Manager. NAHUN MARQUEZ. Evaluate and treat ordered [...] Goodrich [address] [place], [place] [id number] Ordered: Referrals: Allopathic & Osteopathic Physicians : [...] exam w/o abnormal findings) ordered Referral Ordered: [employer] (related to Encntr for general adult medical exam w/o abnormal findings) ordered Referral Referred To: [employer] [address] [place] [address] Ordered: Referrals: [facility] Evaluate and treat ordered Referral Ordered: MAMMOGRAM, SCREENING ordered Referral Referred To: Geo [facility] [address] [place] [address] [facility] [address] [place], [place] [id number] Ordered: Referrals: Geo [facility]. Evaluate and treat ordered Referral Ordered: LUMBAR XRAY AP AND LAT ONLY ordered History Of Present Illness Encounter Date Complaint History Of Prese nt Illness rash1 Pt c/o chronic a nd recurrent bilateral itchy red rash under breast. Pt wants to try topical cream. pannus1 Pt has abdominal panus with frequent yeast infection Pt saw plastic and she was told to quit smoking first so she can schedule for surgery ,Pt quit smoking recently hand1 pt c/o intermitt ent right hand numbness and tingling recently and sometimes she wakes up at night due to above symptoms Pt has to shake her right hand to regain the feeling incontinence1 pt c/o stress in continence for [...] spells HLP Pt has HLP Pt mandi reagansarahi pam and her lipid profile is ok. Pt [...] ,polydipsia HLP Pt has HL pt adrian sherwin jonathanlily and her lipid profile is ok. Pt [...] does have occasional neuropathy symptoms both legs UTI Pt denies any ur inary symptoms .UA [...] dysphagia HLP Pt has HLP Pt ta kes [...] spells HLP Pt has HLP Pt mandi orozco. Pt denies any myalgia back pain1 Pt [...] c/o persisten t left knee pain Pt micik any injury pt denies any warmth or [...] heavy period. Pt is very noncompliant with towel folder in terms of heavy period management. pt [...] memory loss recently. 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 Patient complained of mild sciatica with leg numbness and tingling. Patient denies any loss of bowel bladder control. Patient failed NSAID. Patient has 6 out of 10 pain daily. Patient complained of sharp pain. Patient denies any worsening pain. COPD Pt is seeing jason jolly and also she is on neb and [...] to get ablation for heavy period from towel folder but she decided to change to different TYPESETTING SUPERVISOR and start all over again LBP1 Pt [...] very confused. Pt told me Tonya singh ([employer]) sent her to surgeon who refused hysterectomy. [...] pt has persistent and irregular period. Her TYPESETTING SUPERVISOR sent her to a surgeon but he does not want hysterectomy. Pt wants to find a new TYPESETTING SUPERVISOR? Pt has frequent spotting. back pain1 Pt [...] does have heavy period. Pt is seeing TYPESETTING SUPERVISOR for work up back pain1 Pt has chronic l ow back pain Pt has sciatica and leg numbness. Pt denies any worsening pain. pt denies any loss of bladder control. Pt has hard time doing anything due to pain pt has not done PT yet Anemia1 Pt has severe an emia. pt is seeing hematology for iron infusion now. Pt has carlos with TYPESETTING SUPERVISOR next week to discuss heavy period low [...] sciatica and leg numbness. Pt states that [employer] works ok for her pain hematuria1 Pt [...] abnormal findings Assessments Type Assessment Date assessment Tinea corporis Mental Status Date Cognitive Assessment Orientation - [place] ed to time, place, person, situation.
--- NOTE | 2025-02-02 11:00 | NEURO_ITS ---
Impression: # Complains of numbness of right hand. ? # Moderate right Carpal Tunnel Syndrome. ? # No ulnar neuropathy. ? # Patient declined Needle/EMG exam. Nerve Conduction Studies Anti Sensory Summary Table ?Stim Site NR Peak (ms) P-T Amp (?V) Site1 Site2 Delta-P (ms) Dist (cm) New (m/s) Left Median Anti Sensory (2-3nd Digit) Wrist ? 3.0 45.7 Wrist 2-3nd Digit 3.0 14.0 47 Wrist ? 3.0 59.9 Wrist 2-3nd Digit 3.0 14.0 47 Right Median Anti Sensory (2-3nd Digit) Wrist ? 4.2 34.8 Wrist 2-3nd Digit 4.2 14.0 33 Wrist ? 4.4 53.4 Wrist 2-3nd Digit 4.2 14.0 33 Left Radial Anti Sensory (Base 1st Digit) Wrist ? 2.5 14.3 Wrist Base 1st Digit 2.5 0.0 Right Radial Anti Sensory (Base 1st Digit) Wrist ? 2.6 19.2 Wrist Base 1st Digit 2.6 0.0 Left Ulnar Anti Sensory (5th Digit) Wrist ? 2.3 85.5 Wrist 5th Digit 2.3 14.0 61 Right Ulnar Anti Sensory (5th Digit) Wrist ? 2.7 60.7 Wrist 5th Digit 2.7 14.0 52 Motor Summary Table ?Stim Site NR Onset (ms) O-P Amp (mV) Site1 Site2 Delta-0 (ms) Dist (cm) New (m/s) Left Median Motor (Abd Poll Brev) Wrist ? 2.7 4.5 Elbow Wrist 4.7 28.0 60 Elbow ? 7.4 4.0 Right Median Motor (Abd Poll Brev) Wrist ? 4.9 1.3 Elbow Wrist 3.9 26.0 67 Elbow ? 8.8 0.6 Left Ulnar Motor (Abd Dig Minimi) Wrist ? 2.8 8.4 A Elbow Wrist 4.9 29.0 59 A Elbow ? 7.7 7.3 B Elbow Wrist 3.6 21.0 58 B Elbow ? 6.4 2.3 Right Ulnar Motor (Abd Dig Minimi) Wrist ? 2.8 5.0 A Elbow Wrist 4.9 29.0 59 A Elbow ? 7.7 6.9 B Elbow Wrist 3.8 21.0 55 B Elbow ? 6.6 7.6 F Wave Studies ?NR F-Lat (ms) L-R F-Lat (ms) Left Median (Mrkrs) (Abd Poll Brev) ? 27.34 1.49 Right Median (Mrkrs) (Abd Poll Brev) ? 28.83 1.49 Left Ulnar (Mrkrs) (Abd Dig Min) ? 26.80 0.51 Right Ulnar (Mrkrs) (Abd Dig Min) ? 27.31 0.51 MTDD
== END 2025-02-02 08:39 | disposition home or self-care (01) ==
PROVIDERS: PCP Emergency Medicine; Visit Provider Emergency Medicine
DX: G56.01 Carpal tunnel syndrome, right upper limb (principal)
CPT/HCPCS: 95911

== ENCOUNTER 2025-03-09 14:53 | Outpatient (CLI) | payer OTHER, SELFPAY ==
--- NOTE | 2025-03-09 15:01 | ECG_ITS ---
Test Date: 2025-03-09 15:05:21 Measurements Intervals Ace Rate: 79 P: 19 TX: 144 QRS: 17 QRSD: 100 T: 32 QT: 383 QTc: 440 Interpretive Statements SINUS RHYTHM NORMAL ECG No previous ECG available for comparison Electronically Signed On 03-09-2025 16:28:56 CDT by Angel Au D.O.
== END 2025-03-09 14:54 | disposition home or self-care (01) ==
LOC: ANHLAB 14:55
PROVIDERS: PCP Emergency Medicine; Visit Provider Anesthesiology
DX: R06.09 Other forms of dyspnea (principal); M25.372 Other instability, left ankle; M20.12 Hallux valgus (acquired), left foot
CPT/HCPCS: 93005

== ENCOUNTER 2025-03-17 08:05 | Day surgery (SDC) | payer OTHER, SELFPAY ==
[2025-03-08 09:00] VITALS: BMI 32.1
--- NOTE | 2025-03-17 07:01 | WPDHPUPDATE1 ---
History and Physical Update Update Date/Time: 03/17/25 07:01 Patient seen and examined in pre-operative holding area. No interval change in medical history or symptoms. Patient recalls previous discussion of benefits and alternatives to procedure. Continues to desire to proceed with right endoscopic possible open carpal tunnel release. Reviewed procedure, post-op expectations and risks including but not limited to bleeding, infection, injury to tendon/nerve/vessel, decreased hand function, stiffness, RSD, no change or worsening of symptoms. I discussed the possible use of assistants and their participation in the case. Patient stated understanding and signed the consent form wishing to proceed.
--- NOTE | 2025-03-17 07:02 | W.PM.PROC2 ---
Procedure Note - Detailed Date of Procedure 03/17/25 Pre-op Diagnosis Right Carpal Tunnel Syndrome Post-op Diagnosis Same Procedure Performed right ectr Surgeon Vin Pérez MD Anesthesia MAC Description of Procedure INFORMED CONSENT: The patient was seen and examined and marked in the pre-op area.? The patient signed the consent form. PROCEDURE IN DETAIL:The patient taken back to OR on the stretcher in supine position. Time out performed with anesthesia, surgeon and staff agreeing on patient's name site and surgery to be performed SCDs were placed on the lower extremities and inflated. A tourniquet was placed on {right} upper extremity and antibiotics given IV After anesthesia administered sedation I injected {4}cc 1%lido with epi and 0.5% marcaine plain at the operative site The?{right upper extremity}?was prepped and draped in sterile fashion the??{right upper extremity} was? exsanguinated with Esmarch bandage and tourniquet inflated to 250mmHg I made a transverse incision in the {right} volar distal wrist crease through skin and dermis with 15 blade scalpel.? Littler scissors spread down to antebrachial fascia. A small incision was made in antebrachial fascia allowing access to Carpal tunnel. I proceeded with sequential dilation staying in line with the ring finger and hugging the hook of the hamate.? I then used the synovial elevator to free any adhesions from the underside of the transverse carpal ligament. Next I was able to insert the Microaire endoscopic carpal tunnel device with direct visualization of the transverse fibers on the monitor and proceeded with complete segmental retrograde release of the ligament in its entirety.? I irrigated with normal saline and closed with 4-0 monocryl for dermis and subcuticular closure. A dressing of Dermabond, 4x4, samuel, and a volar splint was applied for patient safety, security, and comfort and secured with an yelena bandage after the tourniquet was let down noting the hand was warm and well perfused. The patient was then awaken from anesthesia and transferred to the recovery room in stable condition.? Complications - none EBL- 0cc Disposition - home in stable condition AM Billing Surgery - Charge Forward: Surgery Billing ([id number] )
--- OUTSIDE RECORDS SUMMARY | 2025-03-17 08:12 | XMS_ITS | Clinical Summary ---
Author Organization [facility] Address [address] [place] [address] Phone Care Team Providers Care Personnel And Payroll Technician Name Role Phone Damon Valenzuela Primary Care Provider [phone] Allergies No known active allergies Medications traMADol (ULTRAM) 50 MG Tablet 0 8 Active ferrous sulfate 325 (65 Fe) MG Tablet Take 1 Tab by mouth 3 times daily. 90 Tab 1 8 Active Albuterol Sulfate (VENTOLIN HFA IN) take by inhalation Daily as needed. Active levothyroxine (SYNTHROID) 50 MCG Tablet Take 50 mcg by mouth daily. 0 8 Active dicyclomine (BENTYL) 10 MG Capsule Take 1 Capsule by mouth 3 times daily. 20 Capsule 3 Active traMADol (ULTRAM) 50 MG TabletIndicatio ns:Pain Take 1 Tablet by mouth every 8 hours as needed for Mild or more severe pain. Indications: Pain 12 Tablet 5 Active predniSONE (DELTASONE) 20 MG Tablet Take 1 Tablet by mouth 2 times daily for 5 days. 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 03/05/2018 03/05/2018 Encounters Date Type Department Care Team Description 03/11/2025 3:09 PM CDT - 03/11/2025 4:46 PM CDT Emergency [facility] Emergency [address] [facility] [place] [address] Carola Jeison Dion, PAC Left elbow pain Discharge Disposition: Discharged to home or Selfcare 03/11/2025 Travel 01/05/2025 7:11 PM CDT - 01/05/2025 7:25 PM CDT Emergency [facility] Emergency [address] [facility] [place] [address] Discharge Disposition: LWBS from Last 3 Months Family History Medical History Relation Name Comments Cancer Father skin Heart Attack Father Congestive Heart Failure Mother Relation Name Status Comments Father Alive Mother Social History Tobacco Use Types Packs/Day Years Used Date Smoking Tobacco: Every Day Cigarettes Last attempted to quit: 2015 Smokeless Tobacco: Never Alcohol Use Standard Drinks/Week Comments No 0 (1 standard drink = 0.6 oz pur e alcohol) PHQ-2 Answer Date Recorded PHQ-2 Score 0 05/29/2019 Comments No Sex and Gender Information Value Date Recorded Sex Assigned at Not on file Legal Sex Female 11:30 PM CDT Gender Identity Not on file Sexual Orientation Not on file Last Filed Vital Signs Vital Sign Reading Time Taken Comments Blood Pressure 125/85 03/11/2025 3:06 PM CDT Pulse 71 03/11/2025 4:41 PM CDT Temperature 36.7 C (98 F) 03/11/2025 3:06 PM CDT Respiratory Rate 18 03/11/2025 4:41 PM CDT Oxygen Saturation 100% 03/11/2025 4:41 PM CDT Inhaled Oxygen Concentration - - Weight 83.5 kg (184 lb) 03/11/2025 3:06 PM CDT Height 162.6 cm (5' 4) 03/11/2025 3:06 PM CDT Body Mass Index 31.58 03/11/2025 3:06 PM CDT Plan of Treatment Health Maintenance Due Date Last Done Comments Hepatitis C Virus (HCV) Screening 1976 Pneumococcal Immunization Combined (1 of 2 - PCV) 1995 Mammogram 01/28/2019 01/28/2018 Cologuard 2021 Colonoscopy 2021 Colorectal Cancer Screening 2021 Immunochemical Fecal Occult Blood 2021 Hepatitis B Immunization (3 of 3 - 19+ 3-dose series) 01/20/2024 11/25/2023, 05/10/2022 SARS-COV-2 Immunization (2023- season) 2024 Respiratory Syncytial Virus (RSV) Immunization (Adult) (1 - 1-dose 75+ series) 2051 Discussion re Starting/Frequency of Mammograms Completed 01/28/2018 DTaP/Tdap/Td Immunization Discontinued 11/25/2023, TdaP Immunization Completed 11/25/2023, 08/04/2014 Influenza Immunization Completed , 11/25/2023, 05/03/2022, Additional history exists Human Papillomavirus (HPV) Immunization Aged Out No longer eligible based on patient's age to complete this topic Meningococcal Immunization (ACWY) Aged Out No longer eligible based on patient's age to complete this topic Rotavirus Immunization Aged Out No lo nger eligible based on patient's age to complete this topic Procedures Procedure Name Priority Date/Time Associated Diagnosis Comments XR ELBOW MINIMUM 3 VIEWS LEFT STAT 03/11/2025 4:02 PM CDT from Last 3 Months Results * XR ELBOW MINIMUM 3 VIEWS LEFT (03/11/2025 4:02 PM CDT) Anatomical Region Laterality Modality UPPER EXTREMITY, elbow Left Digital R adiography 03/11/2025 4:16 PM CDT Impressions 03/11/2025 4:18 PM CDT IMPRESSION: 1. No definite evidence of acute displaced fracture or dislocation involving the left elbow. Narrative 03/11/2025 4:18 PM CDT EXAM DESCRIPTION: XR ELBOW MINIMUM 3 VIEWS LEFT REASON FOR STUDY: left elbow pain, olecranon after heavy lifting 1 month ago. TECHNIQUE: 3 radiographic view(s) of the left elbow . COMPARISON: None FINDINGS: There is no definite evidence of acute displaced fracture or dislocation involving the left elbow. There is no significant joint effusion. There are multiple surgical clips noted involving the anterior left forearm. THIS IS AN ELECTRONICALLY VERIFIED FINAL REPORT 03/11/2025 4:16 PM - Electronically signed by Niranjan Britt D.O. PS: PS Report ID: [id number] Reading Location: [id number] Procedure Note Niranjan Britt DO - 03/11/2025 EXAM DESCRIPTION: XR ELBOW MINIMUM 3 VIEWS LEFT REASON FOR STUDY: left elbow pain, olecranon after heavy lifting 1 month ago. TECHNIQUE: 3 radiographic view(s) of the left elbow . COMPARISON: None FINDINGS: There is no definite evidence of acute displaced fracture or dislocation involving the left elbow. There is no significant joint effusion. There are multiple surgical clips noted involving the anterior left forearm. THIS IS AN ELECTRONICALLY VERIFIED FINAL REPORT 03/11/2025 4:16 PM - Electronically signed by Niranjan Britt D.O. PS: PS Report ID: [id number] Reading Location: [id number] IMPRESSION: 1. No definite evidence of acute displaced fracture or dislocation involving the left elbow. Jeison Srivastava [facility] IMG DIAGNOSTIC ORDER JD Final Result from Last 3 Months Insurance [employer]ICAID [employer] Care Teams Personnel And Payroll Technician Relationship Specialty Start Date End Date Damon Valenzuela [address] [place] [id number] PCP - General Family Medicine 03/05/18
--- OUTSIDE RECORDS SUMMARY | 2025-03-17 08:12 | XMS_ITS | Continuity of Care Document ---
Author Organization [facility] Address [address] [place] [address] [place] [address] Phone Care Team Providers Care Awning Frame Maker Name Role Phone Damon Valenzuela MD Unavailable [...] Providers Copied on Encounter OFFICE/OUTPA TIENT VISIT, [facility], [address], [place], [place], [address], tel:[phone] [facility] arm pain1 (chief complaint) back pain1 (chief complaint) anxiety1 (chief complaint) HLP (chief complaint) sick (chief complaint) Carpal tunnel syndrome, right upper limbAcute bronchitisChronic pain syndromeMixed hyperlipidemiaGener alized Anxiety Disorder 5 Nicolas Jose. [address], [place], [place], [address] , [place]. tel:[phone] OFFICE/OUTPA TIENT VISIT, [facility], [address], [place], [place], [address], [place] tel:[phone] [facility] rash1 (chief complaint) Tinea corporis 5 Nicolas Jose. [address], [place], [place], [address] , [place]. tel:[phone] OFFICE/OUTPA TIENT VISIT, [facility], [address], [place], [place], [address], [place] tel:[phone] [facility] pannus1 (chief complaint) hand1 (chief complaint) Carpal tunnel syndrome, right upper limbTinea corporisEncounter for oth screening for malignant neoplasm of breast 5 Nicolas Murphy [address], [place], [place], [address] , [place]. tel:[phone] OFFICE/OUTPA TIENT VISIT, [facility], [address], [place], [place], [address], [place] tel:[phone] [facility] cough1 (chief complaint) incontinen ce1 (chief complaint) rash1 (chief complaint) Stress incontinenceAcute bronchitisDisorder of the skinTinea corporis 4 Nicolas Jose. [address], [place], [place], [address] , [place]. tel:[phone] [facility], [address], [place], [place], [address], [place] tel:[phone] [facility] No Information 4 Nicolas Jose. [address], [place], [place], [address] , [place]. tel:[phone] OFFICE/OUTPA TIENT VISIT, [facility], [address], [place], [place], [address], [place] tel:[phone] [facility] back pain1 (chief complaint) rash1 (chief complaint) thyroid1 (chief complaint) Chronic pain syndromeHypothyroid ismTinea corporis 4 Nicolas Jose. [address], [place], [place], [address] , [place]. tel:[phone] OFFICE/OUTPA TIENT VISIT, [facility], [address], [place], [place], [address], [place] tel:[phone] [facility] back pain1 (chief complaint) Chronic pain syndrome 4 Nicolas Jose. [address], [place], [place], [address] , [place]. tel:[phone] [facility], [address], [place], [place], [address], [place] tel:[phone] [facility] No Information 4 Nicolas Jose. [address], [place], [place], [address] , [place]. tel:[phone] OFFICE/OUTPA TIENT VISIT, [facility], [address], [place], [place], [address], [place] tel:[phone] [facility] pain (chief complaint) anxiety1 (chief complaint) HLP (chief complaint) weight loss1 (chief complaint) asthma1 (chief complaint) Generalized Anxiety DisorderAnterior chest-wall painChronic pain syndromeAbnormal weight lossEncntr screen mammogram for malignant neoplasm of breastMixed hyperlipidemiaMild intermittent asthma, uncomplicated Dec- 4 Nicolas Murphy [address], [place], [place], [address] , [place]. tel:[phone] OFFICE/OUTPA TIENT VISIT, EST [facility], [address], [place], [place], [address], [place] tel:[phone] [facility] thyroid1 (chief complaint) pain (chief complaint) depression 1 (chief complaint) chest pain1 (chief complaint) Anterior chest-wall painIron deficiencyHypothyro idismGeneralized Anxiety DisorderOther spondylosis, lumbar region 3 Nicolas Murphy [address], [place], [place], [address] , [place]. tel: [phone] OFFICE/OUTPA TIENT VISIT, EST [facility], [address] [place] [place], [address], [place] tel:[phone] [facility] ferritin1 (chief complaint) ferritin1 (chief complaint) glucose1 (chief complaint) HLP (chief complaint) sick (chief complaint) back pain1 (chief complaint) Iron deficiencyHyperglyc emiaFatigueAnterior chest-wall painAcute sinusitisInconclusi ve mammogram 3 Nicolas Murphy [address], [place], [place], [address] , [place]. tel: [phone] PREV VISIT, EST, AGE 40-64 [facility], [address] [place] [place], [address], [place] [phone] [facility] physical (chief complaint) Encounter for general adult medical examination without abnormal findings 3 Nicolas Murphy [address], [place], [place], [address] , [place]. tel:[phone] OFFICE/OUTPA TIENT VISIT, EST [facility], [address], [place], [address], [place] tel:[phone] [facility] UTI1 (chief complaint) Acute cystitis without hematuria Marvin-0 2 3 Nicolas Jose. [address], [place], [place], [address] , [place]. tel:[phone] OFFICE/OUTPA TIENT VISIT, [facility], [address], [place], [address], [place] tel:[phone] [facility] knee pain1 (chief complaint) back pain1 (chief complaint) Pain in left kneeOther spondylosis, lumbar region 3 Nicolas Jose. [address], [place], [place], [address] , [place]. tel:[phone] OFFICE/OUTPA TIENT VISIT, [facility], [address], [place], [place], [address], [place] tel:[phone] [facility] back pain1 (chief complaint) HLP (chief complaint) ankle 1 (chief complaint) anxiety1 (chief complaint) Abnormal weight gainChronic pain syndromePain in left ankleMixed hyperlipidemiaEncou nter for oth screening for malignant neoplasm of breastEncounter for screening for malignant neoplasm of colon Dec-0 3 Nicolas Jose. [address], [place], [place], [address] , [place]. [phone] OFFICE/OUTPA TIENT VISIT, [facility], [address], [place], [place], [address], [place] tel:[phone] [facility] ankle pain1 (chief complaint) back pain1 (chief complaint) Pain in left ankleEdemaOther spondylosis, lumbar region 0 3 Nicolas Jose. [address], [place], [place], [address] , [place]. tel:[phone] OFFICE/OUTPA TIENT VISIT, [facility], [address], [place], [place], [address], [place] tel:[phone] [facility] back pain1 (chief complaint) thyroid1 (chief complaint) weight gain1 (chief complaint) Chronic pain syndromeHypothyroid ismOther spondylosis, lumbar regionAbnormal weight gain 3 Valenzuela Damon. [address], [place], [place], [address] , [place]. tel:[phone] OFFICE/OUTPA TIENT VISIT, [facility], [address], [place], [place], [address], [place] tel:[phone] [facility] thyroid (chief complaint) back pain1 (chief complaint) Other spondylosis, lumbar regionHypothyroidis mChronic pain syndrome 2 Valenzuela Damon. [address], [place], [place], [address] , [place]. tel:[phone] OFFICE/OUTPA TIENT VISIT, [facility], [address], [place], [place], [address], [place] tel:[phone] [facility] back pain1 (chief complaint) edema1 (chief complaint) anxiety1 (chief complaint) Chronic pain syndromeEdemaGenera lized Anxiety Disorder 2 Valenzuela Damon. [address], [place], [place], [address] , [place]. tel:[phone] OFFICE/OUTPA TIENT VISIT, [facility], [address], [place], [place], [address], [place] tel:[phone] [facility] back pain1 (chief complaint) UTI1 (chief complaint) thyroid1 (chief complaint) Acute cystitis without hematuriaLumbago with sciatica, right sideHypothyroidism 2 Valenzuela Damon. [address], [place], [place], [address] , [place]. tel:[phone] OFFICE/OUTPA TIENT VISIT, [facility], [address], [place], [place], [address], [place] tel:[phone] [facility] back pain1 (chief complaint) Acute cystitis without hematuriaLumbago with sciatica, right side 2 Nicolas Damon. [address], [place], [place], [address] , [place]. tel:[phone] OFFICE/OUTPA TIENT VISIT, EST [facility], [address], [place], [place], [address], [place] tel:[phone] [facility] UTI1 (chief complaint) ferritin1 (chief complaint) thyroid (chief complaint) HLP (chief complaint) Acute cystitis without hematuriaIron deficiencyMixed hyperlipidemiaHypot hyroidismEncounter for oth screening for malignant neoplasm of breast 2 Nicloas Jose. [address], [place], [place], [address] , [place]. tel:[phone] PREV VISIT, EST, AGE 40-64 [facility], [address], [place], [place], [address], [place] tel:[phone] [facility] physical (chief complaint) Encounter for general adult medical examination without abnormal findings 2 Nicolas Jose. [address], [place], [place], [address] , [place]. tel:[phone] OFFICE/OUTPA TIENT VISIT, EST [facility], [address], [place], [place], [address], [place] tel:[phone] [facility] anxiety1 (chief complaint) HLP (chief complaint) back pain1 (chief complaint) Generalized Anxiety DisorderChronic pain syndromeHyperlipide kevin 2 Nicolas Jose. [address], [place], [place], [address] , [place]. tel:[phone] OFFICE/OUTPA TIENT VISIT, [facility], [address], [place], [place], [address], [place] tel:[phone] [facility] pain (chief complaint) anxiety1 (chief complaint) Chronic pain syndromeGeneralized Anxiety Disorder 2 Nicolas Jose. [address], [place], [place], [address] , [place]. tel:[phone] OFFICE/OUTPA TIENT VISIT, [facility], [address], [place], [place], [address], [place] tel:[phone] [facility] hematuria1 (chief complaint) pain1 (chief complaint) depression 1 (chief complaint) Chronic pain syndromeHematuriaDe pression 1 Nicolas Murphy [address], [place], [place], [address] , [place]. [phone] OFFICE/OUTPA TIENT VISIT, EST [facility], [address], [place], [address], [place] tel:[phone] [facility] HLP (chief complaint) hematuria1 (chief complaint) low ferritin1 (chief complaint) thyroid1 (chief complaint) pain (chief complaint) weight gain1 (chief complaint) HyperlipidemiaIron deficiency anemia, unspecifiedHypothyr oidismVitamin D deficiency, unspecifiedUrinary tract infectionChronic pain syndromeAbnormal weight gain 1 Nicolas Murphy [address], [place], [place], [address] , [place]. tel:[phone] PREV VISIT, [facility], AGE 40-64 [facility], [address], [place], [place], [address], [place] tel:[phone] [facility] physical (chief complaint) Encounter for general adult medical examination without abnormal findings 1 Nicolas Murphy [address], [place], [place], [address] , [place]. tel:[phone] OFFICE/OUTPA TIENT VISIT, EST [facility], [address], [place], [place], [address], [place] tel:[phone] [facility] pain1 (chief complaint) fatigue1 (chief complaint) Chronic pain syndromeFatigue 1 Nicolas Murphy [address], [place], [place], [address] , [place]. tel:[phone] OFFICE/OUTPA TIENT VISIT, [facility], [address], [place], [place], [address], [place] tel:[phone] [facility] pain (chief complaint) HLP (chief complaint) fatigue1 (chief complaint) HyperlipidemiaChron ic pain syndromeEncounter for oth screening for malignant neoplasm of breastFatigue 1 Nicolas Murphy [address], [place], [place], [address] , [place]. tel:[phone] OFFICE/OUTPA TIENT VISIT, EST [facility], [address], [place], [place], [address], [place] tel:[phone] [facility] HLP (chief complaint) anemia1 (chief complaint) back pain1 (chief complaint) fatigue1 (chief complaint) Iron deficiency anemia, unspecifiedHyperlip idemiaChronic pain syndromeFatigue 0 Nicolas Murphy [address], [place], [place], [address] , [place]. tel:[phone] OFFICE/OUTPA TIENT VISIT, EST [facility], [address], [place], [place], [address], [place] tel:[phone] [facility] HLP (chief complaint) anemia1 (chief complaint) D (chief complaint) fatigue1 (chief complaint) FatigueHypothyroidi smIron deficiency anemiaVitamin D deficiency, unspecifiedHyperlip idemia 0 Nicolas Murphy [address], [place], [place], [address] , [place]. tel:[phone] Referring Provider: [address], [place], [place], [address]. tel:[phone] PREV VISIT, EST, AGE 40-64 [facility], [address], [place], [place], [address], [place] tel:[phone] [facility] physical (chief complaint) Encntr for general adult medical exam w/o abnormal findings 0 Nicolas Jose. [address], [place], [place], [address] , [place]. tel:[phone] Referring Provider: Tico Guadarr[address], [place], [place], [address]. tel:[phone] OFFICE/OUTPA TIENT VISIT, [facility], [address], [place], [place], [address], [place] tel:[phone] [facility] back pain1 (chief complaint) thyroid1 (chief complaint) HypothyroidismChron ic pain syndrome 0 Nicolas Jose. [address], [place], [place], [address] , [place]. tel:[phone] Referring Provider: Tico Guadarrama [address], [place], [place], [address]. tel:[phone] OFFICE/OUTPA TIENT VISIT, [facility], [address], [place], [place], [address], [place] tel:[phone] [facility] Hematuria1 (chief complaint) back pain1 (chief complaint) throat CA (chief complaint) skin1 (chief complaint) Chronic pain syndromeHematuriaMa lignant neoplasm of tongue, unspecifiedCellulit is of left upper limb 0 Nicolas Jose. [address], [place], [place], [address] , [place]. tel:[phone] Referring Provider: Tico Guadarr[address], [place], [place], [address]. tel:[phone] OFFICE/OUTPA TIENT VISIT, [facility], [address], [place], [place], [address], [place] [phone] [facility] hematuria1 (chief complaint) back pain1 (chief complaint) skin1 (chief complaint) HematuriaChronic pain syndromeCellulitis of left upper limbFlushing -201 9 Nicolas Jose. [address], [place], [place], [address] , [place]. tel:[phone] Referring Provider: Tico Guadarr[address], [place], [place], [address]. tel:[phone] OFFICE/OUTPA TIENT VISIT, EST [facility], [address], [place], [place], [address], [place] [phone] [facility] hematuria1 (chief complaint) back pain1 (chief complaint) thyroid1 (chief complaint) HematuriaHypothyroi dismChronic pain syndromeIrregular period 9 Nicolas Jose. [address], [place], [place], [address] , [place]. [phone] Referring Provider: Tico Guadarrama [address], [place], [place], [address]. tel:[phone] OFFICE/OUTPA TIENT VISIT, [facility], [address], [place], [place], [address], [place] [phone] [facility] hematuria1 (chief complaint) hypothyroi dism1 (chief complaint) back pain1 (chief complaint) HematuriaHypothyroi dismChronic pain syndrome 9 Nicolas Jose. [address], [place], [address] , [place]. [phone] Referring Provider: [address], [place], [place], [address]. tel:[phone] OFFICE/OUTPA TIENT VISIT, [facility], [address], [place], [place], [address], [place] [phone] [facility] thyroid1 (chief complaint) low iron1 (chief complaint) knee pain1 (chief complaint) back pain1 (chief complaint) HypothyroidismIron deficiency anemia, unspecifiedChronic pain syndromePain in left kneeHematuria 9 Nicolas Jose. [address], [place], [place], [address] , [place]. tel:[phone] Referring Provider: [address], [place], [address]. tel:[phone] PREV VISIT, EST, AGE 40-64 [facility], [address], [place], [place], [address], [place] tel:[phone] [facility] Physical (chief complaint) Encntr for general adult medical exam w/o abnormal findings 9 Nicolas Jose. [address], [place], [place], [address] , [place]. tel:[phone] Referring Provider: Damon Valenzuela, [address], [place], [place], [address]. tel:[phone] OFFICE/OUTPA TIENT VISIT, [facility], [address], [place], [place], [address], [place] tel:[phone] [facility] back pain1 (chief complaint) COPD (chief complaint) malnutriti on1 (chief complaint) Chronic pain syndromeEmphysemaDy sphagia 9 Nicolas Murphy [address], [place], [place], [address] , [place]. tel:[phone] Referring Provider: Tico Guadarrama [address], [place], [place], [address]. tel:[phone] OFFICE/OUTPA TIENT VISIT, [facility], [address], [place], [place], [address], [place] tel:[phone] [facility] thyroid1 (chief complaint) Anemia1 (chief complaint) LBP1 (chief complaint) COPD1 (chief complaint) EmphysemaHypothyroi dismAnemiaChronic pain syndrome 8 Nicolas Jose. [address], [place], [place], [address] , [place]. tel:[phone] Referring Provider: Tico Guadarra[address], [place], [place], [address]. tel:[phone] OFFICE/OUTPA TIENT VISIT, [facility], [address], [place], [place], [address], [place] tel:[phone] [facility] back pain1 (chief complaint) SOB1 (chief complaint) anemia1 (chief complaint) EmphysemaHypothyroi dismAnemiaChronic pain syndromeHematuria Nov-0 8-201 8 Nicolas Jose. [address], [place], [place], [address] , [place]. [phone] Referring Provider: [address], [place], [place], [address]. tel:[phone] OFFICE/OUTPA TIENT VISIT, [facility], [address], [place], [place], [address], [place] tel:[phone] [facility] HYpothyroi dism1 (chief complaint) back pain1 (chief complaint) hematuria1 (chief complaint) copd1 (chief complaint) EmphysemaHypothyroi dismChronic pain syndromeAnemia 8 Nicolas Murphy [address], [place], [place], [address] , [place]. [phone] Referring Provider: [address], [place], [address]. tel:[phone] OFFICE/OUTPA TIENT VISIT, [facility], [address], [place], [place], [address], [place] tel:[phone] [facility] back pain1 (chief complaint) sob1 (chief complaint) thyroid (chief complaint) hematuria1 (chief complaint) EmphysemaHypothyroi dismHematuriaChroni c pain syndromeAnemia 8 Nicolas Murphy [address], [place], [address] , [place]. [phone] Referring Provider: Tico Guadarrama [address], [place], [place], [address]. tel:[phone] OFFICE/OUTPA TIENT VISIT, [facility], [address], [place], [address], [place] tel:[phone] [facility] sob1 (chief complaint) hypothyroi dism1 (chief complaint) anemia1 (chief complaint) back pain1 (chief complaint) EmphysemaAnemiaHypo thyroidismChronic pain syndrome 8 Valenzuela Damon. [address], [place], [place], [address] , [place]. tel:[phone] Referring Provider: Tico Guadarrama [address], [place], [place], [address]. tel:[phone] OFFICE/OUTPA TIENT VISIT, [facility], [address], [place], [place], [address], [place] tel:[phone] [facility] Anemia1 (chief complaint) low thyroid1 (chief complaint) sob1 (chief complaint) back pain. 1 (chief complaint) HypothyroidismAnemi aLumbagoDyspnea 8 Nicolas Jose. [address], [place], [place], [address] , [place]. [phone] Referring Provider: [address], [place], [place], [address]. tel:[phone] OFFICE/OUTPA TIENT VISIT, [facility], [address], [place], [place], [address], [place] tel:[phone] [facility] hematuria1 (chief complaint) thyroid (chief complaint) anemia1 (chief complaint) back pain1 (chief complaint) HematuriaHypothyroi dismIron deficiency anemia, unspecifiedLumbago 8 Nicolas Jose. [address], [place], [address] , [place]. tel:[phone] Referring Provider: T[address], [place], [place], [address]. tel:[phone] OFFICE/OUTPA TIENT VISIT, [facility], [address], [place], [place], [address], [place] tel:[phone] [facility] chronic pain (chief complaint) sob (chief complaint) shoudler pain1 (chief complaint) DyspneaLumbagoPain in left shoulder Mar-0 8 Nicolas Jose. [address], [place], [place], [address] , [place]. tel:[phone] Referring Provider: [address]ico [address]arr[address], [place], [place], [address]. tel:[phone] PREV VISIT, NEW, AGE 40-64 [facility], [address], [place], [place], [address], tel:[phone] [facility] Physical (chief complaint) Encntr for general adult medical exam w/o abnormal findings 7 Nicolas Jose. [address], [place], [place], [address] , [place]. [phone] Referring Provider: Damon Valenzuela, [address], [place], [place], [address]. tel:[phone] Family History Family Member Type Diagnosis Age At Onset Father Problem (finding) Hypertension Mother Problem (finding) of lung Ca 65 Father Problem (finding) uknown cancer Mother Problem (finding) Payers Payer name Insurance type Covered green party ID Oleg wallace(s) [facility] [id number] Social History Type Description Quantity Date Captured [...] skin) ordered Referral Referred To: Vin Pérez [address] [place] [address], [id number] Ordered: Referrals: Allopathic & Osteopathic Physicians : Plastic Surgery. Vin Pérez. Evaluate and treat ordered Referral Referred To: Angel Au [address], [phone] Ordered: Referrals: Angel Au. Evaluate and treat ordered Referral Ordered: Physical Therapy (related to Pain in left knee) ordered Referral Referred To: Monica LUNDY, Sudhir Simon [address] [facility]
[place] [address] [place], [place], [phone] Ordered: Referrals: Monica LUNDY, Sudhir Simon. Evaluate and treat ordered Referral Ordered: COLONOSCOPY AND BIOPSY ordered Referral Ordered: NAHUN MARQUEZ -Podiatric Medicine & Surgery Service Providers : Resolution Analyst (related to Pain in left ankle) ordered Referral Referred To: NAHUN MARQUEZ [address] [facility] [place], [place], [id number] Ordered: Referrals: Podiatric Medicine & Surgery Service Providers : Resolution Analyst. NAHUN MARQUEZ. Evaluate and treat ordered Referral [...] Goodrich [address] [place], [place] [id number] Ordered: Referrals: Allopathic & Osteopathic Physicians : [...] CHEST X-RAY PA/LAT TWO-VIEWS ordered Referral Ordered: [facility] (related to [facility] for general adult medical exam w/o abnormal findings) ordered Referral Ordered: [facility] (related to [facility] for general adult medical exam w/o abnormal findings) ordered Referral Referred To: [facility] [address] [place] [address] Ordered: Referrals: [facility]. Evaluate and treat ordered Referral Ordered: MAMMOGRAM, SCREENING ordered Referral Referred To: [facility] [address] [place] [address] DR [facility] B [address] [phone] Ordered: Referrals: [facility]. Evaluate and treat ordered Referral Ordered: LUMBAR XRAY AP AND LAT ONLY ordered History Of Present Illness Encounter Date Complaint History Of Prese nt Illness HLP Pt has HLP Pt mandi orozco. Pt denies any myalgia sick Pt c/o acute ons et of sinus congestion postnasal drainage, productive cough, sore throat for one week Pt denies any fever, chill, sob arm pain1 Pt c/o right gonzales d [...] homicidal thought. Pt denies any crying spells. rash1 Pt c/o chronic a nd recurrent [...] HLP Pt has HLP Pt ta kayleen pam and her lipid profile is ok. [...] her anxiety and depression ferritin1 Pt has mildly lo w ferritin [...] she will do cardiac stress test soon. physical Pt needs annual physical Pt has [...] well HLP Pt has HLP Pt ta kayleen orozco Pt denies any myalgia ankle 1 [...] occasional numbness and tingling both lower leg. back pain1 Pt has chronic l ow [...] does have occasional neuropathy symptoms both legs anxiety1 Pt has chronic a nxiety and depression Pt doing ok with cymbalta. Pt denies any suicidal or homicidal thought Pt denies any crying spells edema1 Pt has mild LE e jolene. Pt denies any cold extremity. Pt denies any neuropathy. Pt denies any sob UTI1 Pt denies any ur inary symptoms [...] urinary symptoms. Pt denies any fever, chill UTI1 Pt has acute UTI . Pt notices [...] with cymbalta Pt denies any side effects pain1 Pt has chronic l ow back [...] and doing ok. Pt also takes neurontin anemia1 Pt has mild bord jose anemia with low ferritin Pt denies any blood loss Pt had hysterectomy. Pt denies any blood in stool D Pt has low D . fatigue1 Pt feels fatigue Pt states that she wakes up feeling tired and she feels tired all day pt does snore HLP Pt has HLP Pt st ates that she is not eating poorly pt does eat a lot of fatty part of the meat . physical Pt needs annual physical Pt has [...] numbness or pain. 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 Pt needs form completed for her disability. Hematuria1 Pt has chronic h ematuria. pt had total hysterectomy. Her repeat UA is ok. Her urine cytology is ok. Pt denies any UTI symptoms or flank pain back pain1 Pt has chronic l [...] heavy period. Pt is very noncompliant with economic analysis director in terms of heavy period management. pt [...] memory loss recently. 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 Pt told me Tonya singh (TILE SHADER) sent her to surgeon who refused hysterectomy. [...] pt has persistent and irregular period. Her ICE PLANT OPERATOR sent her to a surgeon but he does not want hysterectomy. Pt wants to find a new ICE PLANT OPERATOR? Pt has frequent spotting. back pain1 [...] does have heavy period. Pt is seeing ICE PLANT OPERATOR for work up hypothyroidism1 Pt has low [...] iron infusion now. Pt has carlos with ICE PLANT OPERATOR next week to discuss heavy period [...] sciatica and leg numbness. Pt states that [employer] works ok for her pain hematuria1 Pt [...] other compalints. Instructions Date Instruction Additional Infor tenion Special diet education Related t o Body [...] Mental Status Date Cognitive Assessment Orientation - [place] ed to time, place, person, situation.
[2025-03-17] MEDS: ACETAMINOPHEN 500 MG TABLET 1000 MG PO (09:08)
[2025-03-17 09:11] VITALS: BP 126/92; PULSE 69; RESP 20; TEMP 36.2; O2SAT 99; BMI 32.2
--- NOTE | 2025-03-17 09:57 | P.PNAN_ITS ---
Anes - Initial Pre Proc Eval Procedure: Operation Date: 03/17/25 10:00 Proposed Procedures p Right Endoscopic Carpal Tunnel Release, Possible Open Carpal Tunnel Release - Vin Pérez MD Date/Time: 03/17/25 09:57 Surgeon: Vin Pérez MD Pre Op Diagnosis: Right Carpal Tunnel Syndrome Patient Data Age: 50 Gender: F Height: 1.63 m Weight: 85.1 kg Last Vital Signs Temp 97.1 F L 03/17/25 09:11 Pulse 69 03/17/25 09:11 Resp 20 03/17/25 09:11 BP 126/92 H 03/17/25 09:11 Pulse Ox 99 03/17/25 09:11 O2 Del Method Room Air 03/17/25 09:11 Allergies Allergy/AdvReac Type Severity Reaction Status Date / Time No Known Allergies Allergy Verified 03/17/25 09:00 Home Medications ?Medication ?Instructions ?Recorded ?Confirmed ?Type tramadol 50 mg tablet 50 mg PO Q6H PRN Pain 06/26/20 03/17/25 History gabapentin 100 mg capsule 100 mg PO TID 03/30/21 03/17/25 History levothyroxine 75 mcg tablet 50 mcg PO DAILY 03/30/21 03/17/25 History (Synthroid) rosuvastatin 10 mg tablet 10 mg PO DAILY 03/30/21 03/17/25 History diclofenac sodium 75 mg 75 mg PO DAILY 07/23/23 03/17/25 History tablet,delayed release duloxetine 30 mg capsule,delayed 60 mg PO DAILY 07/23/23 03/17/25 History release acetaminophen 500 mg capsule 1,000 mg (2 x 500 mg) PO Q6H PRN 03/04/24 03/17/25 Rx pain #30 caps ibuprofen 600 mg tablet 600 mg PO TID PRN pain #30 tabs 03/04/24 03/17/25 Rx albuterol sulfate 2.5 mg/3 mL 2.5 mg (3 mL) inhalation Q4-6H PRN 07/27/24 03/17/25 Rx (0.083 %) solution for nebulization shortness of breath or wheezing 1 month #180 mL budesonide 0.5 mg/2 mL suspension 0.5 mg (2 mL) inhalation BID COPD 08/02/24 03/17/25 Rx for nebulization 1 month #120 mL revefenacin 175 mcg/3 mL solution 175 mcg (3 mL) inhalation DAILY 08/02/24 03/17/25 Rx for nebulization COPD 1 month #90 mL meloxicam 15 mg tablet 15 mg PO DAILY #10 tabs 01/30/25 03/17/25 Rx Patient hx anesthesia problems: none Family hx anesthesia problems: none Results Review: All pre-operative results and documents have been reviewed as part of the pre- operative evaluation. COUNTS INCLUDE 234 BEDS AT THE [facility] Past Medical History Medical History (Updated 02/23/25 @ 15:45 by Vin Pérez MD) Right wrist pain Left ankle instability Pain of midfoot Hallux valgus Tobacco dependence Right foot pain Colon cancer screening Thyroid disorder Kidney disease Hyperlipidemia Headache, migraine COPD (chronic obstructive pulmonary disease) Congestive heart failure Hypothyroidism Chondromalacia, patella Medial meniscus tear Tongue cancer Left knee pain Surgical History Surgical History H/O arthroscopy of left knee 09/30/23 ([facility]) History of total hysterectomy History of skin graft History of tooth extraction all teeth removed. History of appendectomy History of kidney surgery History of gastric surgery History of mandibular surgery Family History Family History Father Skin cancer Diabetes mellitus Hypertension Heart disease Cerebrovascular accident Thyroid disorder Mother Depression Heart disease Grandparent Family history of malignant neoplasm Other Family history of arthritis Social History Social History Social History: caffeine use Smoking packs per day: 0.75 Smoking cigarettes per day: 15.0 Years smoked: 30 Smoking pack-years: 22.50 Smoking status: Current every day smoker Tobacco type: e-cigarettes/vaping Second hand tobacco smoke exposure: Yes Smoking end date: 09/15/15 Alcohol intake: former Substance use: former Substance use type: marijuana Living arrangements: with family Occupation/Education: occupation 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 Informed Consent: The patient's anesthetic plan and its attendant risks and benefits were discussed with the patient/family/POA. Questions were solicited and answers provided to the satisfaction of the patient/family/POA.
[2025-03-17] MEDS: LACTATED RINGERS 1,000 ML 30 ML IV CONT (10:18)
--- NOTE | 2025-03-17 10:43 | SUR.PREOP ---
0915; PT VISIBLY DIRTY, SKIN, HAIR, CLOTHING UNCLEAN.
[2025-03-17] MEDS: ceFAZolin SODIUM 2 GM/20 ML SW SYRINGE IV PUSH (10:55)
[2025-03-17] MEDS: LIDO 1%/EPINEPHRINE 1:100,000 10 ML VIAL 5 ML INFILTRATE (11:00)
[2025-03-17 11:16] VITALS: BP 111/78; PULSE 63; RESP 18; O2SAT 100
--- NOTE | 2025-03-17 11:28 | WPDANESPN ---
Anes - Prog Note Post-Op Date/Time: 03/17/25 11:28 Vital Signs: Last Vital Signs Temp 97.1 F L 03/17/25 09:11 Pulse 69 03/17/25 09:11 Resp 20 03/17/25 09:11 BP 126/92 H 03/17/25 09:11 Pulse Ox 99 03/17/25 09:11 O2 Del Method Room Air 03/17/25 09:11 Pain Score (VAS): no Patient Feedback: Patient satisfied with anesthetic care.
[2025-03-17 11:40] VITALS: BP 119/77; PULSE 74; RESP 18; O2SAT 100
--- NOTE | 2025-03-17 11:48 | SUR.PHASEII ---
PT DRESSED AND READY FOR DISCHARGE. WAITING ON RIDE TO ARRIVE
== END 2025-03-17 12:30 | disposition home or self-care (01) ==
PROVIDERS: PCP Emergency Medicine; Visit Provider Plastic Surgery
PROC: 01N54ZZ Release Median Nerve, Percutaneous Endoscopic Approach (ICD-10-PCS; CPT 29848; principal; 2025-03-17 10:00)
DX: G56.01 Carpal tunnel syndrome, right upper limb (principal)
CPT/HCPCS: 29848

== ENCOUNTER 2025-05-17 16:49 | Emergency (ER) | payer OTHER, SELFPAY ==
--- OUTSIDE RECORDS SUMMARY | 2025-02-14 11:47 | XMS_ITS | Continuity of Care Document ---
Author Organization [facility] Address [address] [place] [address] [place] [address] Phone Care Team Providers Care Juvenile Court Judge Name Role Phone Damon Valenzulea MD Unavailable Unavailable Allergies, Adverse Reactions, Alerts Substance Reaction Status Criticality No Known Allergies Active No Inform ation Medications Medication Instructions Dosage Effective Dates (start - stop) Status Comments tramadol 50 mg tablet take 1 tablet by oral route every 6 hours as needed as needed 50 MG - Active PRn for pain, avoid driving or operate machines Neurontin 100 mg capsule take 1 Capsule by oral route 3 times every day 100 MG - Active avoid driving or operate machines Cymbalta 60 mg capsule,delayed release take 1 capsule by oral route every day - Active Crestor 10 mg tablet take 1 tablet by oral route every day 10 MG - Active Synthroid 88 mcg tablet take [...] 1 puff - Active PRN for sob Procedures Procedure Date OFFICE/OUTPATIENT VISIT, EST OFFICE/OUTPATIENT [...] Providers Copied on Encounter OFFICE/OUTPA TIENT VISIT, [facility], [address], [place], [place], [address], tel:[phone] [facility] arm pain1 (chief complaint) back pain1 (chief complaint) anxiety1 (chief complaint) HLP (chief complaint) sick (chief complaint) Carpal tunnel syndrome, right upper limbAcute bronchitisChronic pain syndromeMixed hyperlipidemiaGener alized Anxiety Disorder 5 Nicolas Jose. [address], [place], [place], [address] , [place]. tel:[phone] OFFICE/OUTPA TIENT VISIT, [facility], [address], [place], [place], [address], [place] tel:[phone] [facility] rash1 (chief complaint) Tinea corporis 5 Nicolas Jose. [address], [place], [place], [address] , [place]. tel:[phone] OFFICE/OUTPA TIENT VISIT, [facility], [address], [place], [place], [address], [place] tel:[phone] [facility] pannus1 (chief complaint) hand1 (chief complaint) Carpal tunnel syndrome, right upper limbTinea corporisEncounter for oth screening for malignant neoplasm of breast 5 Nicolas Jose. [address], [place], [place], [address] , [place]. tel:[phone] OFFICE/OUTPA TIENT VISIT, [facility], [address], [place], [place], [address], [place] tel:[phone] [facility] cough1 (chief complaint) incontinen ce1 (chief complaint) rash1 (chief complaint) Stress incontinenceAcute bronchitisDisorder of the skinTinea corporis 4 Nicolas Jose. [address], [place], [place], [address] , [place]. tel:[phone] [facility], [address], [place], [place], [address], [place] tel:[phone] [facility] No Information 4 Nicolas Jose. [address], [place], [place], [address] , [place]. tel:[phone] OFFICE/OUTPA TIENT VISIT, EST [facility], [address], [place], [place], [address], [place] tel:[phone] [facility] back pain1 (chief complaint) rash1 (chief complaint) thyroid1 (chief complaint) Chronic pain syndromeHypothyroid ismTinea corporis 4 Nicolas Jose. [address], [place], [place], [address] , [place]. tel:[phone] OFFICE/OUTPA TIENT VISIT, [facility], [address], [place], [place], [address], [place] tel:[phone] [facility] back pain1 (chief complaint) Chronic pain syndrome 4 Nicolas Jose. [address], [place], [place], [address] , [place]. tel:[phone] [facility], [address], [place], [place], [address], [place] tel:[phone] [facility] No Information 4 Nicolas Jose. [address], [place], [place], [address] , [place]. tel:[phone] OFFICE/OUTPA TIENT VISIT, [facility], [address], [place], [place], [address], [place] tel:[phone] [facility] pain (chief complaint) anxiety1 (chief complaint) HLP (chief complaint) weight loss1 (chief complaint) asthma1 (chief complaint) Generalized Anxiety DisorderAnterior chest-wall painChronic pain syndromeAbnormal weight lossEncntr screen mammogram for malignant neoplasm of breastMixed hyperlipidemiaMild intermittent asthma, uncomplicated Dec-0 4 Nicolas Murphy [address], [address], [place], [place], [address] , [place]. tel:[phone] OFFICE/OUTPA TIENT VISIT, EST [facility], [address], [place], [place], [address], [place] tel:[phone] [facility] Medicine thyroid1 (chief complaint) pain (chief complaint) depression 1 (chief complaint) chest pain1 (chief complaint) Anterior chest-wall painIron deficiencyHypothyro idismGeneralized Anxiety DisorderOther spondylosis, lumbar region 3 Nicolas Murphy [address], [place], [place], [address] , [place]. tel: [phone] OFFICE/OUTPA TIENT VISIT, EST [facility], [address], [place], [place], [address], [place] tel:[phone] [facility] ferritin1 (chief complaint) ferritin1 (chief complaint) glucose1 (chief complaint) HLP (chief complaint) sick (chief complaint) back pain1 (chief complaint) Iron deficiencyHyperglyc emiaFatigueAnterior chest-wall painAcute sinusitisInconclusi ve mammogram 3 Nicolas Murphy [address], [address], [place], [place], [address] , [place]. tel: [phone] PREV VISIT, EST, AGE 40-64 [facility], [address] [place] [address], [place] tel:[phone] [facility] physical (chief complaint) Encounter for general adult medical examination without abnormal findings 3 Nioclas Murphy [address], [place], [place], [address] , [place]. tel:[phone] OFFICE/OUTPA TIENT VISIT, EST [facility], [address], [place], [place], [address], [place] tel:[phone] [facility] UTI1 (chief complaint) Acute cystitis without hematuria Marvin-0 3 Nicolas Jose. [address], [place], [place], [address] , [place]. tel:[phone] OFFICE/OUTPA TIENT VISIT, [facility], [address], [place], [place], [address], [place] tel:[phone] [facility] knee pain1 (chief complaint) back pain1 (chief complaint) Pain in left kneeOther spondylosis, lumbar region 3 Nicolas Jose. [address], [place], [address] , [place]. tel:[phone] OFFICE/OUTPA TIENT VISIT, [facility], [address], [place], [place], [address], [place] tel:[phone] [facility] back pain1 (chief complaint) HLP (chief complaint) ankle 1 (chief complaint) anxiety1 (chief complaint) Abnormal weight gainChronic pain syndromePain in left ankleMixed hyperlipidemiaEncou nter for oth screening for malignant neoplasm of breastEncounter for screening for malignant neoplasm of colon Dec-0 3 Nicolas Jose. [address], [place], [place], [address] , [place]. tel:[phone] OFFICE/OUTPA TIENT VISIT, [facility], [address], [place], [place], [address], [place] tel:[phone] [facility] ankle pain1 (chief complaint) back pain1 (chief complaint) Pain in left ankleEdemaOther spondylosis, lumbar region 3 Nicolas Jose. [address], [place], [place], [address] , [place]. tel:[phone] OFFICE/OUTPA TIENT VISIT, [facility], [address], [place], [place], [address], [place] tel:[phone] [facility] back pain1 (chief complaint) thyroid1 (chief complaint) weight gain1 (chief complaint) Chronic pain syndromeHypothyroid ismOther spondylosis, lumbar regionAbnormal weight gain 3 Valenzuela Damon. [address], [place], [place], [address] , [place]. tel:[phone] OFFICE/OUTPA TIENT VISIT, [facility], [address], [place], [place], [address], [place] tel:[phone] [facility] thyroid (chief complaint) back pain1 (chief complaint) Other spondylosis, lumbar regionHypothyroidis mChronic pain syndrome 2 Valenzuela Damon. [address], [place], [place], [address] , [place]. tel:[phone] OFFICE/OUTPA TIENT VISIT, [facility], [address], [place], [place], [address], [place] tel:[phone] [facility] back pain1 (chief complaint) edema1 (chief complaint) anxiety1 (chief complaint) Chronic pain syndromeEdemaGenera lized Anxiety Disorder 2 Nicolas Joes. [address], [place], [address] , [place]. tel:[phone] OFFICE/OUTPA TIENT VISIT, [facility], [address], [place], [place], [address], [place] tel:[phone] [facility] back pain1 (chief complaint) UTI1 (chief complaint) thyroid1 (chief complaint) Acute cystitis without hematuriaLumbago with sciatica, right sideHypothyroidism 2 Nicolas Damon. [address], [place], [place], [address] , [place]. tel:[phone] OFFICE/OUTPA TIENT VISIT, [facility], [address], [place], [address], [place] tel:[phone] [facility] back pain1 (chief complaint) Acute cystitis without hematuriaLumbago with sciatica, right side 2 Nicolas Damon. [address], [place], [place], [address] , [place]. tel:[phone] OFFICE/OUTPA TIENT VISIT, EST [facility], [address], [place], [place], [address], [place] tel:[phone] [facility] UTI1 (chief complaint) ferritin1 (chief complaint) thyroid (chief complaint) HLP (chief complaint) Acute cystitis without hematuriaIron deficiencyMixed hyperlipidemiaHypot hyroidismEncounter for oth screening for malignant neoplasm of breast 2 Nicolas Jose. [address], [place], [address] , [place]. tel:[phone] PREV VISIT, EST, AGE 40-64 [facility], [address], [place], [place], [address], [place] tel:[phone] [facility] physical (chief complaint) Encounter for general adult medical examination without abnormal findings 2 Nicolas Jose. [address], [place], [place], [address] , [place]. tel:[phone] OFFICE/OUTPA TIENT VISIT, [facility], [address], [place], [place], [address], [place] tel:[phone] [facility] anxiety1 (chief complaint) HLP (chief complaint) back pain1 (chief complaint) Generalized Anxiety DisorderChronic pain syndromeHyperlipide kevin 2 Nicolas Jose. [address], [place], [place], [address] , [place]. tel:[phone] OFFICE/OUTPA TIENT VISIT, [facility], [address], [place], [place], [address], [place] tel:[phone] [facility] pain (chief complaint) anxiety1 (chief complaint) Chronic pain syndromeGeneralized Anxiety Disorder 2 Nicolas Jose. [address], [place], [place], [address] , [place]. tel:[phone] OFFICE/OUTPA TIENT VISIT, [facility], [address], [place], [address], [place] tel:[phone] [facility] hematuria1 (chief complaint) pain1 (chief complaint) depression 1 (chief complaint) Chronic pain syndromeHematuriaDe pression 1 Nicolas Murphy [address], [place], [place], [address] , [place]. [phone] OFFICE/OUTPA TIENT VISIT, [facility], [address], [place], [place], [address], [place] tel:[phone] [facility] HLP (chief complaint) hematuria1 (chief complaint) low ferritin1 (chief complaint) thyroid1 (chief complaint) pain (chief complaint) weight gain1 (chief complaint) HyperlipidemiaIron deficiency anemia, unspecifiedHypothyr oidismVitamin D deficiency, unspecifiedUrinary tract infectionChronic pain syndromeAbnormal weight gain 1 Nicolas Murphy [address], [place], [place], [address] , [place]. [phone] PREV VISIT, [facility], AGE 40-64 [facility], [address], [place], [place], [address], [place] tel:[phone] [facility] Medicine physical (chief complaint) Encounter for general adult medical examination without abnormal findings 1 Nicolas Murphy [address], [address], [place], [place], [address] , [place]. tel:[phone] OFFICE/OUTPA TIENT VISIT, [facility], [address], [place], [place], [address], [place] tel:[phone] [facility] pain1 (chief complaint) fatigue1 (chief complaint) Chronic pain syndromeFatigue 1 Nicolas Murphy [address], [place], [place], [address] , [place]. [phone] OFFICE/OUTPA TIENT VISIT, [facility], [address], [place], [place], [address], [place] tel:[phone] [facility] pain (chief complaint) HLP (chief complaint) fatigue1 (chief complaint) HyperlipidemiaChron ic pain syndromeEncounter for oth screening for malignant neoplasm of breastFatigue 1 Nicolas Jose. [address], [place], [place], [address] , [place]. [phone] OFFICE/OUTPA TIENT VISIT, EST [facility], [address], [place], [place], [address], [place] tel:[phone] [facility] HLP (chief complaint) anemia1 (chief complaint) back pain1 (chief complaint) fatigue1 (chief complaint) Iron deficiency anemia, unspecifiedHyperlip idemiaChronic pain syndromeFatigue 0 Nicolas Murphy [address], [place], [place], [address] , [place]. [phone] OFFICE/OUTPA TIENT VISIT, EST [facility], [address], [place], [place], [address], [place] tel:[phone] [facility] HLP (chief complaint) anemia1 (chief complaint) D (chief complaint) fatigue1 (chief complaint) FatigueHypothyroidi smIron deficiency anemiaVitamin D deficiency, unspecifiedHyperlip idemia 0 Nicolas Murphy [address], [place], [place], [address] , [place]. [phone] Referring Provider: [address], [place], [place], [address]. tel:[phone] PREV VISIT, EST, AGE 40-64 [facility], [address], [place], [place], [address], [place] tel:[phone] [facility] physical (chief complaint) Encntr for general adult medical exam w/o abnormal findings 0 Nicolas Jose. [address], [place], [address] , [place]. [phone] Referring Provider: [address], [place], [place], [address]. tel:[phone] OFFICE/OUTPA TIENT VISIT, [facility], [address], [place], [address], [place] [phone] [facility] back pain1 (chief complaint) thyroid1 (chief complaint) HypothyroidismChron ic pain syndrome 0 Nicolas Jose. [address], [place], [place], [address] , [place]. tel:[phone] Referring Provider: Tico Guadarr[address], [place], [place], [address]. tel:[phone] OFFICE/OUTPA TIENT VISIT, [facility], [address], [place], [place], [address], [place] tel:[phone] [facility] Hematuria1 (chief complaint) back pain1 (chief complaint) throat CA (chief complaint) skin1 (chief complaint) Chronic pain syndromeHematuriaMa lignant neoplasm of tongue, unspecifiedCellulit is of left upper limb 0 Nicolas Jose. [address], [place], [place], [address] , [place]. tel:[phone] Referring Provider: Tico Gu[address]arr[address], [place], [place], [address]. tel:[phone] OFFICE/OUTPA TIENT VISIT, [facility], [address], [place], [place], [address], [place] tel:[phone] [facility] hematuria1 (chief complaint) back pain1 (chief complaint) skin1 (chief complaint) HematuriaChronic pain syndromeCellulitis of left upper limbFlushing 2-201 9 Nicolas Jose. [address], [place], [place], [address] , [place]. tel:[phone] Referring Provider: Tico Guadarrama [address], [place], [place], [address]. tel:[phone] OFFICE/OUTPA TIENT VISIT, [facility], [address], [place], [place], [address], [place] [phone] [facility] hematuria1 (chief complaint) back pain1 (chief complaint) thyroid1 (chief complaint) HematuriaHypothyroi dismChronic pain syndromeIrregular period 9 Nicolas Jose. [address], [place], [address] , [place]. [phone] Referring Provider: Tico Guadarrama [address], [place], [place], [address]. tel:[phone] OFFICE/OUTPA TIENT VISIT, [facility], [address], [place], [place], [address], [place] [phone] [facility] hematuria1 (chief complaint) hypothyroi dism1 (chief complaint) back pain1 (chief complaint) HematuriaHypothyroi dismChronic pain syndrome 9 Nicolas Jose. [address], [place], [address] , [place]. [phone] Referring Provider: [address], [place], [place], [address]. tel:[phone] OFFICE/OUTPA TIENT VISIT, [facility], [address], [place], [place], [address], [place] tel:[phone] [facility] thyroid1 (chief complaint) low iron1 (chief complaint) knee pain1 (chief complaint) back pain1 (chief complaint) HypothyroidismIron deficiency anemia, unspecifiedChronic pain syndromePain in left kneeHematuria 9 Nicolas Jose. [address], [place], [place], [address] , [place]. tel:[phone] Referring Provider: [address], [place], [place], [address]. tel:[phone] PREV VISIT, EST, AGE 40-64 [facility], [address], [place], [place], [address], [place] tel:[phone] [facility] Physical (chief complaint) Encntr for general adult medical exam w/o abnormal findings 9 Nicolas Jose. [address], [place], [place], [address] , [place]. tel:[phone] Referring Provider: Damon Valenzuela, [address], [place], [place], [address]. tel:[phone] OFFICE/OUTPA TIENT VISIT, [facility], [address], [place], [place], [address], [place] tel:[phone] [facility] back pain1 (chief complaint) COPD (chief complaint) malnutriti on1 (chief complaint) Chronic pain syndromeEmphysemaDy sphagia 9 Nicolas Jose. [address], [place], [place], [address] , [place]. tel:[phone] Referring Provider: Tico Guadarr[address], [place], [place], [address]. tel:[phone] OFFICE/OUTPA TIENT VISIT, [facility], [address], [place], [address], [place] tel:[phone] [facility] thyroid1 (chief complaint) Anemia1 (chief complaint) LBP1 (chief complaint) COPD1 (chief complaint) EmphysemaHypothyroi dismAnemiaChronic pain syndrome 8 Nicolas Jose. [address], [place], [place], [address] , [place]. tel:[phone] Referring Provider: Tico Guadarrama [address], [place], [place], [address]. tel:[phone] OFFICE/OUTPA TIENT VISIT, [facility], [address], [place], [place], [address], [place] tel:[phone] [facility] back pain1 (chief complaint) SOB1 (chief complaint) anemia1 (chief complaint) EmphysemaHypothyroi dismAnemiaChronic pain syndromeHematuria 8 Nicolas Jose. [address], [place], [place], [address] , [place]. tel:[phone] Referring Provider: [address], [place], [place], [address]. tel:[phone] OFFICE/OUTPA TIENT VISIT, [facility], [address], [place], [place], [address], [place] tel:[phone] [facility] HYpothyroi dism1 (chief complaint) back pain1 (chief complaint) hematuria1 (chief complaint) copd1 (chief complaint) EmphysemaHypothyroi dismChronic pain syndromeAnemia 8 Nicolas Murphy [address], [place], [place], [address] , [place]. tel:[phone] Referring Provider: [address], [place], [place], [address]. tel:[phone] OFFICE/OUTPA TIENT VISIT, [facility], [address], [place], [address], [place] tel:[phone] [facility] back pain1 (chief complaint) sob1 (chief complaint) thyroid (chief complaint) hematuria1 (chief complaint) EmphysemaHypothyroi dismHematuriaChroni c pain syndromeAnemia 8 Nicolas Murphy [address], [place], [place], [address] , [place]. [phone] Referring Provider: Tico Guadarrama [address], [place], [place], [address]. tel:[phone] OFFICE/OUTPA TIENT VISIT, [facility], [address], [place], [place], [address], [place] tel:[phone] [facility] sob1 (chief complaint) hypothyroi dism1 (chief complaint) anemia1 (chief complaint) back pain1 (chief complaint) EmphysemaAnemiaHypo thyroidismChronic pain syndrome 8 Valenzuela Damon. [address], [place], [place], [address] , [place]. tel:[phone] Referring Provider: Tico Guadarrama [address], [place], [place], [address]. tel:[phone] OFFICE/OUTPA TIENT VISIT, [facility], [address], [place], [place], [address], [place] tel:[phone] [facility] Anemia1 (chief complaint) low thyroid1 (chief complaint) sob1 (chief complaint) back pain. 1 (chief complaint) HypothyroidismAnemi aLumbagoDyspnea 8 Nicolas Jose. [address], [place], [address] , [place]. tel:[phone] Referring Provider: [address], [place], [place], [address]. tel:[phone] OFFICE/OUTPA TIENT VISIT, [facility], [address], [place], [address], [place] tel:[phone] [facility] hematuria1 (chief complaint) thyroid (chief complaint) anemia1 (chief complaint) back pain1 (chief complaint) HematuriaHypothyroi dismIron deficiency anemia, unspecifiedLumbago 8 Nicolas Jose. [address], [place], [place], [address] , [place]. tel:[phone] Referring Provider: Tico Guadarrama [address], [place], [place], [address]. tel:[phone] OFFICE/OUTPA TIENT VISIT, [facility], [address], [place], [address], [place] tel:[phone] [facility] chronic pain (chief complaint) sob (chief complaint) shoudler pain1 (chief complaint) DyspneaLumbagoPain in left shoulder Nov-0 8 Nicolas Jose. [address], [place], [address] , [place]. tel:[phone] Referring Provider: [address], [place], [address]. tel:[phone] PREV VISIT, NEW, AGE 40-64 [facility], [address], [place], [place], [address], tel:[phone] [facility] Physical (chief complaint) Encntr for general adult medical exam w/o abnormal findings 7 Nicolas Jose. [address], [place], [place], [address] , [place]. tel:[phone] Referring Provider: Damon Valenzuela, [address], [place], [place], [address]. tel:[phone] Family History Family Member Type Diagnosis Age At Onset Father Problem (finding) Hypertension Mother Problem (finding) of lung Ca 65 Father Problem (finding) uknown cancer Mother Problem (finding) Payers Payer name Insurance type Covered democrat ID Oleg wallace(s) [facility] [id number] Social History Type Description Quantity Date Captured Comments Alcohol Use Details No Caffeine Use Details Unknown Tobacco Use Status Ex-cigarette smoker 025 Smoking Status Former smoker Sex Female Vital Signs Date / Time: Height Weight BMI Pulse Rate Blood Pressure Temperature Respiratory Rate Body Surface Area Head Circumference BMI percentile Pulse Ox Inhaled Ox 4:47 PM 64.00 in 191.00 lbs 32.7 8 kg/m eter (2) 87 /min 132/78 mm[Hg] 98.2 F 16 /min Chief Complaint And Reason For Visit From encounter dated '02/14/2025 16:47'. arm pain1 (chief complaint). Description: Pt c/o right hand numbness and tingling and some weakness. Pt had NCS done which showed moderate right carpal tunnel syndrome. back pain1 (chief complaint). Description: Pt has chronic low back pain due to DDD with some neuropathy symptoms .Pt takes ultram and neurontin and doing ok Pt denies any loss of bowel or bladder control or saddle area paresthesia. anxiety1 (chief complaint). Description: Pt has chronic anxiety and depression Pt takes cymbalta and doing ok. Pt denies any suicidal or homicidal thought. Pt denies any crying spells. HLP (chief complaint). Description: Pt has HLP Pt takes crestor. Pt denies any myalgia sick (chief complaint). Description: Pt c/o acute onset of sinus congestion postnasal drainage, productive cough, sore throat for one week Pt denies any fever, chill, sob Plan Of Treatment Date Type Action Status [...] Osteopathic Physicians : Plastic Surgery (related to Carpal tunnel syndrome, right upper limb) ordered Referral Ordered: MOTOR NERVE CONDUCTION TEST ordered Referral Ordered: Vin Pérez -Allopathic & Osteopathic Physicians : Plastic Surgery (related to Disorder of the skin) ordered Referral Referred To: Vin Pérez [address] [place] [address], [id number] Ordered: Referrals: Allopathic & Osteopathic Physicians : Plastic Surgery. Vin Pérez. Evaluate and treat ordered Referral Referred To: Angel Au [address], [phone] Ordered: Referrals: Angel Au. Evaluate and treat ordered Referral Ordered: Physical Therapy (related to Pain in left knee) ordered Referral Referred To: Monica LUNDY, Sudhir Preciado Kal[facility] Wang Dept Of
[place] [address] [place], [place], [phone] Ordered: Referrals: Monica LUNDY, Sudhir Simon. Evaluate and treat ordered Referral Ordered: COLONOSCOPY AND BIOPSY ordered Referral Ordered: NAHUN MARQUEZ -Podiatric Medicine & Surgery Service Providers : Vascular Manager (related to Pain in left ankle) ordered Referral Referred To: NAHUN MARQUEZ [address] [facility],[address] [place], [place], [phone] Ordered: Referrals: Podiatric Medicine & Surgery Service Providers : Vascular Manager. NAHUN MARQUEZ. Evaluate and treat ordered [...] [place] [address] [place], [place] [id number] Ordered: Referrals: Allopathic & Osteopathic Physicians : [...] exam w/o abnormal findings) ordered Referral Ordered: [facility] [employer] (related to Encntr for general adult medical exam w/o abnormal findings) ordered Referral Referred To: [facility] [address] [place] [address] Ordered: Referrals: [facility]. Evaluate and treat ordered Referral Ordered: MAMMOGRAM, SCREENING ordered Referral Referred To: Geo Rios [address] [place] [address] DR NOVA [address] [phone] Ordered: Referrals: Geo Rios. Evaluate and treat ordered Referral Ordered: LUMBAR XRAY AP AND LAT ONLY ordered Appointment Crystal Berry BOOKED History Of Present Illness Encounter Date Complaint History Of Prese nt Illness arm pain1 Pt c/o right gonzales d numbness and tingling and some weakness. Pt had NCS done which showed moderate right carpal tunnel syndrome. back pain1 Pt has chronic l ow back pain due to DDD with some neuropathy symptoms .Pt takes ultram and neurontin and doing ok Pt denies any loss of bowel or bladder control or saddle area paresthesia. anxiety1 Pt has chronic a nxiety and depression Pt takes cymbalta and doing ok. Pt denies any suicidal or homicidal thought. Pt denies any crying spells. HLP Pt has HLP Pt ta kayleen orozco. Pt denies any myalgia sick Pt c/o acute ons et of sinus congestion postnasal drainage, productive cough, sore throat for one week Pt denies any fever, chill, sob rash1 Pt c/o chronic a nd recurrent [...] HLP Pt has HLP Pt ta kayleen crestor and her lipid profile is ok. [...] as well HLP Pt has HLP Pt ta kes crestor Pt denies any myalgia ankle 1 Pt [...] inary symptoms .UA clear .Pt finished abx thyroid Pt has low thyro id. Pt [...] any dysphagia HLP Pt has HLP Pt mandi orozco .Pt denies any myalgia. her lipid [...] HLP Pt has HLP Pt ta kayleen orozco. Pt denies any myalgia back pain1 [...] heavy period. Pt is very noncompliant with pre wave assembler in terms of heavy period management. pt [...] memory loss recently. back pain1 Patient has flatbed stitcher venkata low back pain. Patient complained of [...] to get ablation for heavy period from pre wave assembler but she decided to change to different SIZE CHANGER and start all over again LBP1 Pt [...] very confused. Pt told me Tonya singh (STUDENT SUPPORT SERVICES DIRECTOR) sent her to surgeon who refused hysterectomy. [...] pt has persistent and irregular period. Her SIZE CHANGER sent her to a surgeon but he does not want hysterectomy. Pt wants to find a new SIZE CHANGER? Pt has frequent spotting. back pain1 Pt [...] does have heavy period. Pt is seeing SIZE CHANGER for work up back pain1 Pt has chronic l ow back pain Pt has sciatica and leg numbness. Pt denies any worsening pain. pt denies any loss of bladder control. Pt has hard time doing anything due to pain pt has not done PT yet Anemia1 Pt has severe an emia. pt is seeing hematology for iron infusion now. Pt has carlos with SIZE CHANGER next week to discuss heavy period low [...] sciatica and leg numbness. Pt states that [employer] works ok for her pain hematuria1 Pt [...] other compalints. Instructions Date Instruction Additional Infor kenna Special diet education Related t o Body [...] abnormal findings Assessments Type Assessment Date assessment Carpal tunnel syndrome, right up per limb assessment Acute bronchitis assessment Chronic pain syndrome assessment Mixed hyperlipidemia assessment Generalized Anxiety Disorder Feb Mental Status Date Cognitive Assessment Orientation - [place] ed to time, place, person, situation.
[2025-05-17 16:51] VITALS: BP 124/86; PULSE 75; RESP 16; TEMP 36.6; O2SAT 96
--- OUTSIDE RECORDS SUMMARY | 2025-05-17 16:51 | XMS_ITS | Clinical Summary ---
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 Name Role Phone Damon Valenzuela MD Primary Care Provider [phone] Allergies Active Allergy Reactions Criticality Noted Date Comments Other Other (See comments) Low 09/04/2020 Medications [facility] albuterol HFA, VENTOLIN HFA, (/DOREEN ALA) 90 mcg/actuation, 18 g inhaler Inhale daily as needed Active lactose-reduced food (NUTRITIONAL SUPPLEMENT PLUS ORAL) Take by mouth Active albuterol 2.5 mg /3 mL (0.083 %) nebulizer solution albuterol sulfate 2.5 mg/3 mL (0.083 %) solution for nebulization Active docusate sodium (COLACE) 100 mg capsule docusate sodium 100 mg capsule Active estradioL (ESTRACE) 1 mg tablet Take 1 tablet by mouth daily 04/05/20 20 Active gabapentin (NEURONTIN) 100 mg capsule Take 1 capsule by mouth every 8 hours 03/21/20 20 Active ipratropium (ATROVENT) 0.02 % nebulizer solution ipratropium bromide 0.02 % solution for inhalation Active levothyroxine (SYNTHROID) 50 mcg tablet levothyroxine 50 mcg tablet 05/22/20 18 Active rosuvastatin (CRESTOR) 10 mg tablet Take 1 tablet by mouth daily 06/21/20 20 Active tiotropium-olodat Estela (STIOLTO) 2.5-2.5 mcg/actuation inhaler daily Active tiZANidine (ZANAFLEX) 4 mg tabletIndications :Left lateral epicondylitis Take 1 tablet (4 mg total) by mouth every 6 (six) hours as needed (Take as directed to relax muscles) Collaborating physician Yogi Ortega MD 20 tablet 02/05/20 25 Active celecoxib (CeleBREX) 200 mg capsuleIndication s:Left lateral epicondylitis Take 1 capsule (200 mg total) by mouth 2 (two) times a day PRN pain. Collaborating physician Yogi Ortega MD 30 capsule 02/05/20 25 Active traMADoL (ULTRAM) 50 mg tablet Take 1 tablet (50 mg total) by mouth every 6 (six) hours for 10 days 10 tablet 03/04/20 25 Active LORazepam (Ativan) 1 mg tablet Take 1 tablet (1 mg total) by mouth 2 (two) times a day as needed for anxiety for up to 6 doses 6 tablet 05/08/20 25 Active Active Problems Problem Noted Date Diagnosed Date Left lateral epicondylitis 02/04/2025 Injury of left knee 01/11/2021 Primary osteoarthritis of left knee 09/04/2020 Encounters Date Type Department Care Team Description 05/08/2025 12:46 PM CDT - 05/08/2025 5:58 PM CDT Emergency [facility] Emergency Department [address] [place] [address] Chest pain, unspecified type (Primary Dx) Discharge Disposition: Discharge to home or self care 03/04/2025 11:20 AM CDT - 03/04/2025 3:46 PM CDT Emergency [facility] Emergency Department [address] [place] [address] Anushka Michel MD [place]ti[place], [place] Maierhofer, MD Chest wall pain (Primary Dx) Discharge Disposition: Discharge to home or self care from Last 3 Months Surgical History Surgery Date Site/Laterality Comments TONGUE SURGERY STOMACH SURGERY KIDNEY SURGERY IR G TUBE PLACEMENT PERCUTANEOUS 01/23/2016 N/A Medical History Medical History Date Comments History of radiation therapy ton briseida cancer 04/30 Hypercholesteremia Cancer (HCC) Thyroid disease Chronic kidney disease Rheumatoid arthritis (HCC) ADHD (attention deficit hyperactivity disorder) Anemia Peptic ulceration Heart failure Family History Medical History Relation Name Comments Arthritis Other Cancer Other Clotting disorder Other Diabetes Other Gout Other Heart disease Other Hypertension Other Mental illness Other Stroke Other Relation Name Status Comments Other Social History Tobacco Use Types Packs/Day Years Used Date Smoking Tobacco: Former Smokeless Tobacco: Never Alcohol Use Standard Drinks/Week Comments Never 0 (1 standard drink = 0.6 oz pur e alcohol) AUDIT-C Answer Date Recorded Q1: How often do you have a drink containing alc ohol? Never 09/04/2020 Average Number of Drinks Not on file 020 Frequency of Binge Drinking Not on file 08/16 Personal Safety Answer Date Recorded Have you ever been in or are you currently in a harmful physical or emotional relationship or is someone making you feel afraid or unsafe? Denies 05/08/2025 Comments No Sex and Gender Information Value Date Recorded Sex Assigned at Not on file Legal Sex Female 9:45 AM [employer]IV[employer] Gender Identity Not on file Sexual Orientation Not on file Obstetrics History Para Term AB IAB SAB Ectopic Multiple Livin g Live Births 4 4 4 Date Outcome GA Total Labor Labor//3rd Weight Sex Type Anes PTL Shanti A1 A5 Name Clin Term Term Term Term Last Filed Vital Signs Vital Sign Reading Time Taken Comments Blood Pressure 117/60 05/08/2025 5:30 PM CDT Pulse 71 05/08/2025 5:30 PM CDT Temperature 36.4 C (97.6 F) 05/08/2025 12:57 PM CDT Respiratory Rate 17 05/08/2025 5:30 PM CDT Oxygen Saturation 100% 05/08/2025 5:30 PM CDT Inhaled Oxygen Concentration - - Weight 81.6 kg (180 lb) 05/08/2025 12:57 PM CDT Height 162.6 cm (5' 4) 04/05/2024 8:09 PM CDT Body Mass Index 30.9 04/05/2024 8:09 PM CDT Plan of Treatment Health Maintenance Due Date Last Done Comments Colon Cancer Screening-Colonoscopy 1976 Depression Screening 1976 Hepatitis C Screening 1976 Regular Well Visit/Exam 18-64 1994 Pneumococcal vaccine <65 (1 of 2 - PCV) 1995 Breast Cancer Screening-Mammogram 01/28/2019 018 DTaP/Tdap/Td Vaccine (2 - Td or Tdap) 08/04/2024 08/04/2014 Influenza Vaccine (#1) 2025 , 06/30/2021, 06/25/2020, Additional history exists Hepatitis B Screening Completed 05/10/2022 Procedures Procedure Name Priority Date/Time Associated Diagnosis Comments TROPONIN T HIGH-SENSITIVITY 2-HOUR Timed 05/08/2025 4:14 PM CDT TROPONIN T HIGH-SENSITIVITY SERIES (BASELINE, 2HR, 4HR, 6HR) STAT 05/08/2025 2:11 PM CDT XR CHEST 1 VIEW ED 05/08/2025 1:01 PM CDT EGFR STAT 05/08/2025 12:59 PM CDT DIFFERENTIAL AUTO STAT 05/08/2025 12: 59 PM CDT TROPONIN T HIGH-SENSITIVITY SERIES (BASELINE, 2HR, 4HR, 6HR) STAT 05/08/2025 12:59 PM CDT COMPREHENSIVE METABOLIC PANEL STAT 05/08/2025 12:59 PM CDT CBC WITH AUTO DIFFERENTIAL STAT 05/08/2025 12:59 PM CDT ECG 12-LEAD Routine 05/08/2025 12:47 PM CDT TROPONIN T HIGH-SENSITIVITY 2-HOUR STAT 03/04/2025 2:42 PM CDT EGFR STAT 03/04/2025 11:55 AM CDT TROPONIN T HIGH-SENSITIVITY SERIES (BASELINE, 2HR, 4HR, 6HR) STAT 03/04/2025 11:55 AM CDT COMPREHENSIVE METABOLIC PANEL STAT 03/04/2025 11:55 AM CDT ECG 12-LEAD STAT 03/04/2025 11:33 AM CDT XR CHEST 1 VIEW ED 03/04/2025 11:30 AM CDT DIFFERENTIAL AUTO STAT 03/04/2025 11: 25 AM CDT CBC WITH AUTO DIFFERENTIAL STAT 03/04/2025 11:25 AM CDT SCREENING MAMMOGRAM BILATERAL W TY Schedule Routine, Read Routine (OP Routine) 01/28/2018 4:48 PM CDT Screening breast examination from Last 3 Months or Most Recently Relevant to Health Maintenance Results * Troponin T high-sensitivity 2-hour (05/08/2025 4:14 PM CDT) Trop T hs <6 <=14 ng/L [facility] ([place]) Comment: Interpretive Data For further hscTnT resources including the diagnostic algorithm and an aid in interpretation, copy and paste this link: https://Teknovus.[email or web address]/show/hsTrop Current Interpretive Data last revised 2020. Trop T hs delta 0 ng/L [facility] ([place]) Trop T hs interp Insignificant [facility] ([place]) Blood 05/08/2025 4:14 PM CDT 05/08/2025 4:19 PM CDT us Myra BROOKE LAB BLOOD ORDERABLES Final Resu lt [facility] ([place]) 1 [facility] Department [place] [address] * Troponin T high-sensitivity series (baseline, 2hr, 4hr, 6hr) (05/08/2025 2:11 PM CDT) Trop T hs <6 <=14 ng/L [facility] ([place]) Comment: Interpretive Data For further hscTnT resources including the diagnostic algorithm and an aid in interpretation, copy and paste this link: https://nrl.Tokopedia.org/show/hsTrop Current Interpretive Data last revised 2020. Blood 05/08/2025 2:11 PM CDT 05/08/2025 2:17 PM CDT us Myra BROOKE LAB BLOOD ORDERABLES Final Resu lt [facility] [place]) [address] [facility] Department [place] [address] * XR Chest 1 Vw Portable (05/08/2025 1:01 PM CDT) Anatomical Region Laterality Modality Body, Chest N/A Computed Radiogr aphy 05/08/2025 1:21 PM CDT Narrative 05/08/2025 1:22 PM CDT EXAM DESCRIPTION: XR CHEST 1 VIEW REASON FOR STUDY: cough cough TECHNIQUE: Single frontal portable upright radiographic view(s) of the chest. COMPARISON: Chest radiograph dated 03/04/2025, 04/05/2024 and 01/05/2018. FINDINGS: No focal pneumonic consolidation, pleural effusion or pneumothorax. The cardiomediastinal silhouette is similar in size. The osseous structures without acute interval change. IMPRESSION: No focal pneumonic consolidation. THIS IS AN ELECTRONICALLY VERIFIED FINAL REPORT 05/08/2025 1:22 PM - Electronically signed by Young Villa D.O. AP: AP Report ID: [id number] Reading Location: [place] [address] Procedure Note Young Villa, DO - 05/08/2025 EXAM DESCRIPTION: XR CHEST 1 VIEW REASON FOR STUDY: cough cough TECHNIQUE: Single frontal portable upright radiographic view(s) of thechest. COMPARISON: Chest radiograph dated 03/04/2025, 04/05/2024 and 01/05/2018. FINDINGS: No focal pneumonic consolidation, pleural effusion or pneumothorax. The cardiomediastinal silhouette is similar in size. The osseous structures without acute interval change. IMPRESSION: No focal pneumonic consolidation. THIS IS AN ELECTRONICALLY VERIFIED FINAL REPORT 05/08/2025 1:22 PM - Electronically signed by Young Villa D.O. AP: AP Report ID: [id number] Reading Location: [id number] Myra BROOKE IMG XR PROCEDURES Final Result * Troponin T high-sensitivity series (baseline, 2hr, 4hr, 6hr) (05/08/2025 12:59 PM CDT) Trop T hs See Comment <=14 Comment: hemolyzed Interpretive Data For further hscTnT resources including the diagnostic algorithm and an aid in interpretation, copy and paste this link: https://nrl.testcatalog.org/show/hsTrop Current Interpretive Data last revised 2020. Blood 05/08/2025 12:5 9 PM CDT 05/08/2025 1:02 PM CDT Myra BROOKE LAB BLOOD ORDERABLES Final Resu lt [facility] [place] 1 [facility] Department of Laboratories [place] [id number] * eGFR (05/08/2025 12:59 PM CDT) eGFR >90 >=60 mL/min/1. 73 m2 Comment: Interpretive Data Reference Interval Normal >/= 90 mL/min/1.73m2 Mildly decreased* 60 - 89 mL/min/1.73m2 Mildly to moderately decreased 45 - 59 mL/min/1.73m2 Moderately to severely decreased 30 - 44 mL/min/1.73m2 Severely decreased 15 - 29 mL/min/1.73m2 Kidney Failure < 15 mL/min/1.73m2 *Relative to young adult level Estimated glomerular filtration rate is determined by the 2020 CKD-EPI equation recommended by the National Kidney Foundation (A Unifying Approach to GFR Estimation: Recommendations of the NKF-ASK Task Force on Reassessing the Inclusion of Race in Diagnosing Kidney Disease, JASN 202). The CKD-EPI equation should not be used for patients with unstable renal function and has not been validated in children and those over 70. Current interpretive data was last reviewed 2021. Blood 05/08/2025 12:5 9 PM CDT 05/08/2025 1:02 PM CDT us Myra BROOKE LAB BLOOD ORDERABLES Final [facility] 1 [facility] Department [place] [address] * Differential, auto (05/08/2025 12:59 PM CDT) Neutrophil abs 4.58 1.50 - 6.50 K/cumm Imm gran abs 0.02 0.00 - 0.10 K/cumm [facility] ([place]) Lymphocyte abs 1.68 0.80 - 3.30 K/cumm [facility] ([place]) Monocyte abs 0.47 0.20 - 0.80 K/cumm [facility] ([place]) Eosinophil abs 0.21 0.00 - 0.50 K/cumm [facility] ([place]) Basophil abs 0.05 0.00 - 0.10 K/cumm [facility] ([place]) Neutrophil pct 65.3 % [facility] ([place]) Comment: Interpretive Data Percent cell count reference ranges are not reported, since discordance with absolute values may lead to misinterpretation of CBC data. Current Interpretive Data was last revised on 2017. Imm gran pct 0.3 % [facility]) Comment: Interpretive Data Percent cell count reference ranges are not reported, since discordance with absolute values may lead to misinterpretation of CBC data. Current Interpretive Data was last revised on 2017. Lymphocyte pct 24.0 % [facility] ([place]) Comment: Interpretive Data Percent cell count reference ranges are not reported, since discordance with absolute values may lead to misinterpretation of CBC data. Current Interpretive Data was last revised on 2017. Monocyte pct 6.7 % [facility] ([place]) Comment: Interpretive Data Percent cell count reference ranges are not reported, since discordance with absolute values may lead to misinterpretation of CBC data. Current Interpretive Data was last revised on 2017. Eosinophil pct 3.0 % [facility] ([place]) Comment: Interpretive Data Percent cell count reference ranges are not reported, since discordance with absolute values may lead to misinterpretation of CBC data. Current Interpretive Data was last revised on 2017. Basophil pct 0.7 % [facility] ([place]) Comment: Interpretive Data Percent cell count reference ranges are not reported, since discordance with absolute values may lead to misinterpretation of CBC data. Current Interpretive Data was last revised on 2017. Blood 05/08/2025 12:5 9 PM CDT 05/08/2025 1:02 PM CDT us Myra BROOKE LAB BLOOD ORDERABLES Final Resu lt [facility] ([place] 1 [facility] Department [place] [address] * CBC with auto differential (05/08/2025 12:59 PM CDT) WBC 7.01 3.80 - 9.90 K/cumm Hgb 12.3 11.9 - 15.5 g/dL [facility] ([place]) Hct 37.8 35.6 - 45.5 % [facility] ([place]) Plt 197 150 - 400 K/cumm [facility] ([place]) MPV 11.0 9.1 - 12.3 fL [facility] ([place]) RBC 4.42 3.90 - 5.20 M/cumm [facility] ([place]) MCV 85.5 81.3 - 96.4 fL [facility] ([place]) MCH 27.8 27.1 - 33.3 pg [facility] ([place]) MCHC 32.5 32.3 - 35.7 g/dL [facility] ([place]) RDW CV 13.6 11.1 - 14.9 % [facility] ([place]) RDW SD 42.5 35.7 - 48.1 fL [facility] ([place]) NRBC abs 0.00 0.00 - 0.01 K/cumm [facility] ([place]) Blood 05/08/2025 12:5 9 PM CDT 05/08/2025 1:02 PM CDT us Myra BROOKE LAB BLOOD ORDERABLES Final Resu lt [facility] ([place]) 1 [facility] Department [place] [address] * (ABNORMAL) Comprehensive metabolic panel (05/08/2025 12:59 PM CDT) Sodium 136 135 - 145 mmol/L [facility] ([place]) Potassium, pl 4.5 3.3 - 4.9 mmol/L [facility] ([place]) Comment:Testing performed by : [facility], [address] [facility], [place], [address] Chloride 107 97 - 110 mmol/L [facility] ([place]) CO2 18(L) 22 - 32 mmol/L [facility] ([place]) Anion gap 11 2 - 15 mmol/L [facility] BUN 17 6 - 25 mg/dL [facility]) Creatinine 0.75 0.60 - 1.10 mg/dL [facility] ([place]) Glucose 85 70 - 199 mg/dL [facility]) Comment: Interpretive Data Fasting glucose >/= 126 mg/dl is diagnostic for diabetes. Fasting is defined as no caloric intake for at least 8 hours. Fasting glucose between 100 mg/dl to 125 mg/dl is diagnostic of prediabetes. In a patient with classic symptoms of hyperglycemia or hyperglycemic crisis, a random glucose >/= 200 mg/dl is diagnostic for diabetes. In the absence of unequivocal hyperglycemia, results should be confirmed by repeat testing. The classification and Diagnosis of Diabetes Diabetes Care 2021; 46: S19-S40. Current interpretive data was last revised 2022. Calcium 8.4(L) 8.5 - 10.3 mg/dL [facility] ([place]) Bilirubin, total 0.3 0.1 - 1.2 mg/dL [facility] ([place]) Protein, pl 6.3(L) 6.5 - 8.5 g/dL [facility] ([place]) Albumin 3.6 3.5 - 5.0 g/dL [facility] ([place]) Alk phos 84 40 - 130 Units/L [facility] ([place]) ALT 20 7 - 45 Units/L [facility] ([place]) Comment:Hemolysis present. R esults may be affected. AST 38 10 - 45 Units/L [facility] ([place]) Comment:Hemolysis present. R esults may be affected. Blood 05/08/2025 12:5 9 PM CDT 05/08/2025 1:02 PM CDT Myra BROOKE LAB BLOOD ORDERABLES Final Resu lt [facility] ([place]) 1 [facility] [place] [address] * ECG 12 lead (05/08/2025 12:47 PM CDT) 05/08/2025 12:4 7 PM CDT Narrative [facility] - 05/09/2025 6:49 AM CDT Vent Rate: 64 bpm RR Interval: 936 msec [place] Interval: 141 msec QRS Duration: 97 msec QT Interval: 383 msec QTC Interval: 392 msec P-R-T [place]: 74 - 21 - 22 degrees IMPRESSION: SINUS RHYTHM LOW QRS VOLTAGE IN PRECORDIAL LEADS [QRS DEFLECTION < 1.0 mV IN CHEST LEADS] INCOMPLETE RIGHT BUNDLE BRANCH BLOCK [90+ ms QRS DURATION, TERMINAL R IN V1/V2, 40+ ms S IN I/aVL/V4/V5/V6] BORDERLINE ECG NO CHANGE FROM PREVIOUS TRACING NOTED Electronically Signed By: Stefan Domínguez MD Myra BROOKE ECG ORDERABLES Final Result [facility] State [facility] * Troponin T high-sensitivity 2-hour (03/04/2025 2:42 PM CDT) Trop T hs <6 <=14 ng/L Comment: Interpretive Data For further hscTnT resources including the diagnostic algorithm and an aid in interpretation, copy and paste this link: https://nrl.testcatalog.org/show/hsTrop Current Interpretive Data last revised 2020. Trop T hs delta 0 ng/L [facility] ([place]) Trop T hs interp Insignificant [facility] ([place]) Blood 03/04/2025 2:42 PM CDT 03/04/2025 2:53 PM CDT Anushka Michel MD LAB BLOOD ORDERABLES Marlene l Result Performing Organization Address [facility] Co de Phone Number [facility] ([place]) 1 [facility] [place] [address] * Troponin T high-sensitivity series (baseline, 2hr, 4hr, 6hr) (03/04/2025 11:55 AM CDT) Trop T hs <6 <=14 ng/L Comment: Interpretive Data For further hscTnT resources including the diagnostic algorithm and an aid in interpretation, copy and paste this link: https://nrl.testcatBulu Box.org/show/hsTrop Current Interpretive Data last revised 2020. Blood 03/04/2025 11:5 5 AM CDT 03/04/2025 11:58 AM CDT Anushka Michel MD LAB BLOOD ORDERABLES Marlene l Result Performing Organization Address [facility] Co de Phone Number [facility] ([place]) 1 [facility] [place] [address] * eGFR (03/04/2025 11:55 AM CDT) eGFR 78 >=60 mL/min/1. 73 m2 Comment: Interpretive Data Reference Interval Normal >/= 90 mL/min/1.73m2 Mildly decreased* 60 - 89 mL/min/1.73m2 Mildly to moderately decreased 45 - 59 mL/min/1.73m2 Moderately to severely decreased 30 - 44 mL/min/1.73m2 Severely decreased 15 - 29 mL/min/1.73m2 Kidney Failure < 15 mL/min/1.73m2 *Relative to young adult level Estimated glomerular filtration rate is determined by the 2020 CKD-EPI equation recommended by the National Kidney Foundation (A Unifying Approach to GFR Estimation: Recommendations of the NKF-ASK Task Force on Reassessing the Inclusion of Race in Diagnosing Kidney Disease, JASN 2020). The CKD-EPI equation should not be used for patients with unstable renal function and has not been validated in children and those over 70. Current interpretive data was last reviewed 2021. Blood 03/04/2025 11:5 5 AM CDT 03/04/2025 11:58 AM CDT us Anushka Michel MD LAB BLOOD ORDERABLES Marlene martínez Result [facility] ([place]) [address] [facility] Department [place] [address] * Comprehensive metabolic panel (03/04/2025 11:55 AM CDT) Sodium 139 135 - 145 mmol/L Potassium, pl 4.3 3.3 - 4.9 mmol/L [facility] ([place]) Chloride 104 97 - 110 mmol/L [facility] ([place]) CO2 25 22 - 32 mmol/L [facility] Anion gap 10 2 - 15 mmol/L [facility] ([place]) BUN 21 6 - 25 mg/dL [facility] ([place]) Creatinine 0.91 0.60 - 1.10 mg/dL [facility] ([place]) Glucose 89 70 - 199 mg/dL [facility] ([place]) Comment: Interpretive Data Fasting glucose >/= 126 mg/dl is diagnostic for diabetes. Fasting is defined as no caloric intake for at least 8 hours. Fasting glucose between 100 mg/dl to 125 mg/dl is diagnostic of prediabetes. In a patient with classic symptoms of hyperglycemia or hyperglycemic crisis, a random glucose >/= 200 mg/dl is diagnostic for diabetes. In the absence of unequivocal hyperglycemia, results should be confirmed by repeat testing. The classification and Diagnosis of Diabetes Diabetes Care 2021; 46: S19-S40. Current interpretive data was last revised 2022. Calcium 9.2 8.5 - 10.3 mg/dL [facility] ([place]) Bilirubin, total 0.2 0.1 - 1.2 mg/dL [facility]) Protein, pl 7.1 6.5 - 8.5 g/dL [facility] ([place]) Albumin 4.0 3.5 - 5.0 g/dL [facility] ([place]) Alk phos 122 40 - 130 Units/L [facility] ([place]) ALT 18 7 - 45 Units/L [facility]) AST 19 10 - 45 Units/L [facility] Blood 03/04/2025 11:5 5 AM CDT 03/04/2025 11:58 AM CDT Anushka Michel MD LAB BLOOD ORDERABLES Marlene l Result Performing Organization Address City/[facility]/ZIP Co de Phone Number [facility] ([place]) [address] [facility] Department of Laboratories [place] [id number] * ECG 12 lead (03/04/2025 11:33 AM CDT) 03/04/2025 11:3 3 AM CDT Narrative [facility] State - 03/04/2025 12:13 PM CDT Vent Rate: 71 bpm RR Interval: 839 msec [place] Interval: 144 msec QRS Duration: 101 msec QT Interval: 409 msec QTC Interval: 432 msec P-R-T [place]: 36 - 15 - 15 degrees IMPRESSION: Baseline artifact, probable SINUS RHYTHM NORMAL ECG Compared to prior EKG, heart rate has decreased Electronically Signed By: Stefan Domínguez MD Anushka Michel MD ECG ORDERABLES Final Res ult Performing Organization Address City/[facility]/ZIP Co de Phone Number [facility] State [facility] * XR Chest 1 Vw Portable (if patient condition/safety warrant portable) (03/04/2025 11:30 AM CDT) Anatomical Region Laterality Modality Body, Chest N/A Computed Radiogr aphy 03/04/2025 11:3 9 AM CDT Narrative 03/04/2025 11:39 AM CDT EXAM DESCRIPTION: XR CHEST 1 VIEW REASON FOR STUDY: chest pain has had intermittent midsternal chest pain for years but reports it is worse today TECHNIQUE: Single radiographic view(s) of the chest. COMPARISON: 04/05/2020 FINDINGS: LUNGS: No focal opacity, pleural effusion, or pneumothorax. HEART/MEDIASTINUM: Cardiac silhouette normal in size. Mediastinal and hilar contours appear normal. LINES/TUBES: None. BONES: No acute osseous abnormality. IMPRESSION: No acute cardiopulmonary abnormality. THIS IS AN ELECTRONICALLY VERIFIED FINAL REPORT 03/04/2025 11:39 AM - Electronically signed by Carloz Zimmerman M.D. AM: AM Report ID: [id number] Reading Location: [id number] Procedure Note Carloz Zimmerman MD - 03/04/2025 EXAM DESCRIPTION: XR CHEST 1 VIEW REASON FOR STUDY: chest pain has had intermittent midsternal chest pain for years but reports it isworse today TECHNIQUE: Single radiographic view(s) of the chest. COMPARISON: 04/05/2020 FINDINGS: LUNGS: No focal opacity, pleural effusion, or pneumothorax. HEART/MEDIASTINUM: Cardiac silhouette normal in size. Mediastinal andhilar contours appear normal. LINES/TUBES: None. BONES: No acute osseous abnormality. IMPRESSION: No acute cardiopulmonary abnormality. THIS IS AN ELECTRONICALLY VERIFIED FINAL REPORT 03/04/2025 11:39 AM - Electronically signed by Carloz Zimmerman M.D. AM: AM Report ID: [id number] Reading Location: [id number] Anushka Michel MD IMG XR PROCEDURES Final R esult * Differential, auto (03/04/2025 11:25 AM CDT) Neutrophil abs 5.12 1.50 - 6.50 K/cumm Imm gran abs 0.01 0.00 - 0.10 K/cumm [facility] ([place]) Lymphocyte abs 1.75 0.80 - 3.30 K/cumm [facility] ([place]) Monocyte abs 0.48 0.20 - 0.80 K/cumm [facility] ([place]) Eosinophil abs 0.00 0.00 - 0.50 K/cumm [facility] ([place]) Basophil abs 0.04 0.00 - 0.10 K/cumm [facility] ([place]) Neutrophil pct 69.3 % [facility] ([place]) Comment: Interpretive Data Percent cell count reference ranges are not reported, since discordance with absolute values may lead to misinterpretation of CBC data. Current Interpretive Data was last revised on 2017. Imm gran pct 0.1 % [facility] ([place] Comment: Interpretive Data Percent cell count reference ranges are not reported, since discordance with absolute values may lead to misinterpretation of CBC data. Current Interpretive Data was last revised on 2017. Lymphocyte pct 23.6 % [facility] ([place]) Comment: Interpretive Data Percent cell count reference ranges are not reported, since discordance with absolute values may lead to misinterpretation of CBC data. Current Interpretive Data was last revised on 2017. Monocyte pct 6.5 % [facility] ([place]) Comment: Interpretive Data Percent cell count reference ranges are not reported, since discordance with absolute values may lead to misinterpretation of CBC data. Current Interpretive Data was last revised on 2017. Eosinophil pct 0.0 % [facility] ([place] Comment: Interpretive Data Percent cell count reference ranges are not reported, since discordance with absolute values may lead to misinterpretation of CBC data. Current Interpretive Data was last revised on 2017. Basophil pct 0.5 % [facility] ([place]) Comment: Interpretive Data Percent cell count reference ranges are not reported, since discordance with absolute values may lead to misinterpretation of CBC data. Current Interpretive Data was last revised on 2017. Blood 03/04/2025 11:2 5 AM CDT 03/04/2025 11:26 AM CDT us Anushka Daphne Michel MD LAB BLOOD ORDERABLES Marlene l Result [facility] ([place]) 1 [facility] [place] [address] * CBC with auto differential (03/04/2025 11:25 AM CDT) WBC 7.40 3.80 - 9.90 K/cumm Hgb 12.5 11.9 - 15.5 g/dL [facility] ([place]) Hct 38.3 35.6 - 45.5 % [facility] ([place]) Plt 236 150 - 400 K/cumm [facility] ([place]) MPV 11.7 9.1 - 12.3 fL [facility] ([place]) RBC 4.50 3.90 - 5.20 M/cumm [facility] ([place]) MCV 85.1 81.3 - 96.4 fL [facility] ([place]) MCH 27.8 27.1 - 33.3 pg [facility] ([place]) MCHC 32.6 32.3 - 35.7 g/dL [facility] ([place]) RDW CV 13.8 11.1 - 14.9 % [facility] ([place]) RDW SD 42.5 35.7 - 48.1 fL [facility] ([place]) NRBC abs 0.00 0.00 - 0.01 K/cumm [facility] ([place]) Blood Venous blood specimen / Unknown 03/04/2025 11:25 AM CDT 03/04/2025 11:26 AM CDT Anushka Michel MD LAB BLOOD ORDERABLES Marlene l Result [facility] ([place]) 1 [facility] [place] [address] * Screening Mammogram Bilateral W Ty (01/28/2018 4:48 PM CDT) Anatomical Region Laterality Modality Breast Bilateral Mammography Impressions 01/29/2018 7:02 AM CDT BIRADS Category 1: Negative mammogram. Digital technology was employed plus computer-aided detection software (R2) was utilized in interpretation of these images. This facility utilizes a reminder system to notify patients of yearly mammograms. Electronically signed by: Luan Anna M.D. Narrative 01/29/2018 7:02 AM CDT EXAMINATION: Digital screening mammogram with tomosynthesis. HISTORY: Breast cancer screening PRIOR: None DENSITY: Scattered fibroglandular densities FINDINGS: No dominant mass, architectural distortion, nipple retraction, skin thickening, or suspicious calcifications are seen. Damon Valenzuela MD IMG MAMMO PROCEDURES Final R esult from Last 3 Months or Most Recently Relevant to Health Maintenance Insurance [facility] MEDICAID [facility] Care Teams Pig Lead Melter Helper Relationship Specialty Start Date End Date Damon Valenzuela MD PCP - General 01/05/18
--- OUTSIDE RECORDS SUMMARY | 2025-05-17 16:51 | XMS_ITS | Clinical Summary ---
Author Organization [facility] Address [address] [place] [address] Phone Care Team Providers Care Director Smb Sales Name Role Phone Damon Valenzuela Primary Care Provider [phone] Allergies No known active allergies Medications traMADol [...] pain. 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 03/05/2018 03/05/2018 Encounters Date Type Department Care Team Description 03/11/2025 3:09 PM CDT - 03/11/2025 4:46 PM CDT Emergency [facility] Emergency [address] [place] [address] Jeison Srivastava, DARIANA Left elbow pain Discharge Disposition: Discharged to home or Selfcare 03/11/2025 Travel from Last 3 Months Family History Medical [...] - 19+ 3-dose series) 01/20/2024 11/25/2023, 05/10/2022 Influenza Immunization (#1) 2025 08/2 11/2023, 11/25/2023, 05/03/2022, Additional history exists SARS-COV-2 Immunization ( - season) 2025 Respiratory Syncytial Virus (RSV) Immunization (Adult) (1 - 1-dose 75+ series) 2051 Discussion re Starting/Frequency of Mammograms Completed 01/28/2018 DTaP/Tdap/Td Immunization Discontinued 11/25/2023, TdaP Immunization Completed 11/25/2023, 08/04/2014 Human Papillomavirus (HPV) Immunization Aged Out No [...] Niranjan Britt D.O. PS: PS Report ID: [id number] Reading Location: [id number] Procedure Note Niranjan Britt DO - 03/11/2025 [...] Niranjan Britt D.O. PS: PS Report ID: [id number] Reading Location: [id number] IMPRESSION: 1. No definite evidence of acute displaced fracture or dislocation involving the left elbow. Jeison Srivastava [facility] IMG DIAGNOSTIC ORDER JD Final Result from Last 3 Months Insurance MEDICAID [facility] [employer] [facility] Care Teams Director Smb Sales Relationship Specialty Start Date End Date Damon Valenzuela [address] [place] [address] PCP - General Family Medicine 03/05/18
--- NOTE | 2025-05-17 17:04 | ED.GENADULT ---
HPI - General Adult General Chief complaint: Nausea/Vomiting/Diarrhea Stated complaint: wants to be checked for Covid Time Seen by Provider: 05/17/25 16:58 Source: patient Mode of arrival: ambulatory Limitations: no limitations History of Present Illness HPI narrative: PATIENT MAIN COMPLAINT IS WOULD LIKE TO CHECK FOR COVID INFECTION BECAUSE SHE WAS IN CONTACT WITH 1 OF HER FRIEND WHO TESTED POSITIVE FOR COVID 2 DAYS AGO. PATIENT DENIES ANY SYMPTOMS EXCEPT FEELING NAUSEATED. SHE DENIES ANY FEVER, CHILLS, HEADACHE, SORE THROAT, COUGHING, NASAL CONGESTION. Related Data Home Medications ?Medication ?Instructions ?Recorded ?Confirmed ?Last Taken ?Type tramadol 50 mg tablet 50 mg PO Q6H PRN Pain 06/26/20 03/17/25 03/16/25 History gabapentin 100 mg capsule 100 mg PO TID 03/30/21 03/17/25 03/16/25 History rosuvastatin 10 mg tablet 10 mg PO DAILY 03/30/21 03/17/25 03/16/25 History diclofenac sodium 75 mg 75 mg PO DAILY 07/23/23 03/17/25 03/16/25 History tablet,delayed release duloxetine 30 mg capsule,delayed 60 mg PO DAILY 07/23/23 03/17/25 03/16/25 History release levothyroxine 75 mcg tablet 80 mcg PO DAILY 04/05/25 Unknown History (Synthroid) Allergies Allergy/AdvReac Type Severity Reaction Status Date / Time No Known Allergies Allergy Verified 05/17/25 16:53 Review of Systems Review of Systems: All systems reviewed & are unremarkable except as noted in HPI and below PMFSH Past Medical History Medical History Right wrist pain Left ankle instability Pain of midfoot Hallux valgus Tobacco dependence Right foot pain Colon cancer screening Thyroid disorder Kidney disease Hyperlipidemia Headache, migraine COPD (chronic obstructive pulmonary disease) Congestive heart failure Hypothyroidism Chondromalacia, patella Medial meniscus tear Tongue cancer Left knee pain Surgical History Surgical History H/O arthroscopy of left knee 09/30/23 ([place]) History of total hysterectomy History of skin graft History of tooth extraction all teeth removed. History of appendectomy History of kidney surgery History of gastric surgery History of mandibular surgery Family History Family History Father Skin cancer Diabetes mellitus Hypertension Heart disease Cerebrovascular accident Thyroid disorder Mother Depression Heart disease Grandparent Family history of malignant neoplasm Other Family history of arthritis Social History Social History Social History: caffeine use Smoking packs per day: 1 Smoking cigarettes per day: 20.0 Years smoked: 40 Smoking pack-years: 40.00 Smoking status: Former smoker Tobacco type: cigarettes Second hand tobacco smoke exposure: Yes Smoking end date: 09/15/15 Alcohol intake: current Alcohol use details: wine Substance use: former Substance use type: does not use Living arrangements: alone Occupation/Education: occupation 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 MUSCULOSKELETAL: NORMAL RANGE OF MOTION, NONTENDER BACK NEUROLOGIC: ALERT AND ORIENTED ?3, OYSTER UNLOADER IS NORMAL TESTED, NO GROSS MOTOR DEFICIT Course Vital Signs Vital signs: Vital Signs Temperature 36.6 C 05/17/25 16:51 Pulse Rate 75 05/17/25 16:51 Respiratory Rate 16 05/17/25 16:51 Blood Pressure 124/86 05/17/25 16:51 Pulse Oximetry 96 05/17/25 16:51 Oxygen Delivery Room Air 05/17/25 16:51 Temperature 36.6 C 05/17/25 16:51 Pulse Rate 75 05/17/25 16:51 Respiratory Rate 16 05/17/25 16:51 Blood Pressure 124/86 05/17/25 16:51 Pulse Oximetry 96 05/17/25 16:51 Oxygen Delivery Room Air 05/17/25 16:51 Medical Decision Making MDM Narrative Medical decision making narrative: VIRAL INFECTION IS MY CONCERN PATIENT TESTED NEGATIVE FOR COVID FLU AND RSV Vital Signs Vital Signs: Vital Signs Temperature 36.6 C 05/17/25 16:51 Pulse Rate 75 05/17/25 16:51 Respiratory Rate 16 05/17/25 16:51 Blood Pressure 124/86 05/17/25 16:51 Pulse Oximetry 96 05/17/25 16:51 Oxygen Delivery Room Air 05/17/25 16:51 Temperature 36.6 C 05/17/25 16:51 Pulse Rate 75 05/17/25 16:51 Respiratory Rate 16 05/17/25 16:51 Blood Pressure 124/86 05/17/25 16:51 Pulse Oximetry 96 05/17/25 16:51 Oxygen Delivery Room Air 05/17/25 16:51 Lab Data Labs: Lab Results 05/17/25 Range/Units 17:10 Influenza A (RT-PCR) Negative (Negative) Influenza B (RT-PCR) Negative (Negative) RSV (RT-PCR) Negative (Negative) SARS-CoV-2 RNA (RT-PCR) Negative (Negative) Critical Care Time Critical Care Time Critical Care Time: No Discharge Plan Discharge Clinical Impression: Acute viral syndrome Patient Disposition: Home Condition: Stable Instructions: Viral Syndrome (ED) Patient Language: British Prescriptions: No Action meloxicam 15 mg tablet 15 mg PO DAILY Qty: 10 0RF tramadol 50 mg tablet 50 mg PO Q6H PRN (Reason: Pain) levothyroxine [Synthroid] 75 mcg tablet 80 mcg PO DAILY gabapentin 100 mg capsule 100 mg PO TID rosuvastatin 10 mg tablet 10 mg PO DAILY albuterol sulfate 2.5 mg /3 mL (0.083 %) solution for nebulization 2.5 mg inhalation Q4-6H PRN (Reason: shortness of breath or wheezing) 30 Days Qty: 180 5RF diclofenac sodium 75 mg tablet,delayed release (DR/EC) 75 mg PO DAILY duloxetine 30 mg capsule,delayed release(DR/EC) 60 mg PO DAILY ibuprofen 600 mg tablet 600 mg PO TID PRN (Reason: pain) Qty: 30 0RF acetaminophen 500 mg capsule 1,000 mg PO Q6H PRN (Reason: pain) Qty: 30 0RF budesonide 0.5 mg/2 mL suspension for nebulization 0.5 mg inhalation BID 30 Days Qty: 120 5RF Rx Instructions: Take at least 10 hours apart. Rinse and spit after use. revefenacin 175 mcg/3 mL solution for nebulization 175 mcg inhalation DAILY 30 Days Qty: 90 5RF Follow-up/Referrals: UNKNOWN,DOCTOR [Non-Staff]
--- NOTE | 2025-05-17 17:05 | PC.NURSE ---
Covid culture sent to lab
--- OUTSIDE RECORDS SUMMARY | 2025-05-17 17:46 | XMS_ITS | Clinical Summary ---
Author Organization [facility] Address [address] [place] [address] Phone Care Team Providers Care Medical Scientific Liaison Name Role Phone Damon Valenzuela Primary Care Provider [phone] Allergies No known active allergies Medications traMADol [...] - 03/11/2025 4:46 PM CDT Emergency [facility] Emergency [address] [place] [address] Jeison Srivastava, DARIANA Left elbow [...] 4:16 PM - Electronically signed by Niranjan Birtt D.O. PS: PS Report ID: [id number] Reading Location: [id number] Procedure Note Niranjan Britt DO - 03/11/2025 [...] Niranjan Britt D.O. PS: PS Report ID: [id number] Reading Location: [id number] IMPRESSION: 1. No definite evidence of acute displaced fracture or dislocation involving the left elbow. Jeison Srivastava [facility] IMG DIAGNOSTIC ORDER JD Final Result from Last 3 Months Insurance MEDICAID [facility] [employer] Care Teams Medical Scientific Liaison Relationship Specialty Start Date End Date Damon Valenzuela [address] [place] [address] PCP - General Family Medicine 03/05/18
--- OUTSIDE RECORDS SUMMARY | 2025-05-17 17:46 | XMS_ITS | Clinical Summary ---
Author Organization [facility] Address [address] [place] [address] Care Team Providers Care Business Support Associate Name Role Phone Damon Valenzuela MD Primary Care Provider [phone] Allergies Active Allergy Reactions Criticality Noted Date Comments Other Other (See comments) Low 09/04/2020 Medications [facility] albuterol HFA, VENTOLIN HFA, (/DOREEN ALA) 90 [...] CDT - 05/08/2025 5:58 PM CDT Emergency [facility] Emergency Department 1 [place] [address] Chest pain, unspecified type (Primary Dx) Discharge Disposition: Discharge to home or self care 03/04/2025 11:20 AM CDT - 03/04/2025 3:46 PM CDT Emergency [facility] Emergency Department [address] [place] [address] Anushka Michel MD Ittiara, Verona Maierhofer, MD [...] on file Legal Sex Female 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 Trop T hs delta 0 ng/L [facility] ([place]) Trop T hs interp Insignificant [facility] ([place]) Blood 05/08/2025 4:14 PM CDT 05/08/2025 4:19 PM CDT us Myra BROOKE LAB BLOOD ORDERABLES Final Resu lt [facility] ([place]) 1 [facility] Department [place] [address] * Troponin T high-sensitivity series (baseline, 2hr, 4hr, 6hr) (05/08/2025 2:11 PM CDT) Trop T hs <6 <=14 ng/L [facility] ([place]) Comment: Interpretive Data For further hscTnT resources including the diagnostic algorithm and an aid in interpretation, copy and paste this link: [email or web address]://[email or web address]/show/[email or web address] Current Interpretive Data last revised 2020. Blood 05/08/2025 2:11 PM CDT 05/08/2025 2:17 PM CDT us Myra BROOKE LAB BLOOD ORDERABLES Final Resu lt [facility] [place]) 4 [facility] Department [place] [address] * XR Chest 1 Vw Portable (05/08/2025 [...] Young Villa D.O. AP: AP Report ID: [id number] Reading Location: [place] [address] Procedure Note Young Villa, DO - 05/08/2025 [...] Young Villa D.O. AP: AP Report ID: [id number] Reading Location: [id number] Myra BROOKE IMG XR PROCEDURES Final Result [...] BLOOD ORDERABLES Final Resu lt [facility] [place] [facility] Department of Laboratories [place] [id number] * eGFR (05/08/2025 12:59 PM CDT) eGFR [...] BROOKE LAB BLOOD ORDERABLES Final Resu lt [facility] ([place] [address] [facility] Department [place] [address] * Differential, auto (05/08/2025 12:59 PM CDT) [...] Final Resu lt [facility] ([place]) 1 [facility] [place] [address] * CBC with auto differential (05/08/2025 12:59 [...] LAB BLOOD ORDERABLES Final Resu lt [facility] ([place]) 1 [facility] Department [place] [address] * (ABNORMAL) Comprehensive metabolic panel (05/08/2025 12:59 PM CDT) Sodium 136 135 - 145 mmol/L [facility] ([place]) Potassium, pl 4.5 3.3 - 4.9 mmol/L [facility] ([place]) Comment:Testing performed by : [facility], [facility], [place], [address] Chloride 107 97 - 110 mmol/L [facility] ([place]) CO2 18(L) 22 - 32 mmol/L [facility] ([place]) Anion gap 11 2 - 15 mmol/L [facility] BUN 17 6 - 25 mg/dL [facility] Creatinine 0.75 0.60 - 1.10 [...] BLOOD ORDERABLES Final Resu lt [facility] ([place]) 1 [facility] [place] [address] * ECG 12 lead (05/08/2025 12:47 PM CDT) 05/08/2025 12:4 7 PM CDT Narrative [facility] - 05/09/2025 6:49 AM CDT Vent Rate: 64 bpm RR Interval: 936 msec ID Interval: 141 msec QRS Duration: 97 msec QT Interval: 383 msec QTC Interval: 392 msec P-R-T [place]: 74 - 21 - 22 degrees IMPRESSION: SINUS RHYTHM LOW QRS VOLTAGE IN PRECORDIAL LEADS [QRS DEFLECTION < 1.0 mV IN CHEST LEADS] INCOMPLETE RIGHT BUNDLE BRANCH BLOCK [90+ ms QRS DURATION, TERMINAL R IN V1/V2, 40+ ms S IN I/aVL/V4/V5/V6] BORDERLINE ECG NO CHANGE FROM PREVIOUS TRACING NOTED Electronically Signed By: Stefan Domínguez MD Myra BROOKE ECG ORDERABLES Final Result [facility] [employer] [facility] * Troponin T high-sensitivity 2-hour (03/04/2025 2:42 [...] ORDERABLES Marlene l Result Performing Organization Address [facility] Co de Phone Number [facility] ([place]) 1 [facility] [employer] [place] [address] * Troponin T high-sensitivity series (baseline, 2hr, 4hr, 6hr) (03/04/2025 11:55 AM CDT) Trop T hs <6 <=14 ng/L Comment: Interpretive Data For further hscTnT resources including the diagnostic algorithm and an aid in interpretation, copy and paste this link: [email or web address]/show/[email or web address] Current Interpretive Data last revised 2020. Blood 03/04/2025 11:5 5 AM CDT 03/04/2025 11:58 AM CDT Anushka Michel MD LAB BLOOD ORDERABLES Marlene l Result Performing Organization Address [facility] Co de Phone Number [facility] ([place]) 1 [facility] [employer] [place] [address] * eGFR (03/04/2025 11:55 AM CDT) eGFR [...] MD LAB BLOOD ORDERABLES Marlene martínez Result [facility] ([place]) 1 [facility] Department [place] [address] * Comprehensive metabolic panel (03/04/2025 11:55 AM CDT) Sodium 139 135 - 145 mmol/L Potassium, pl 4.3 3.3 - 4.9 mmol/L [facility] ([place]) Chloride 104 97 - 110 mmol/L [facility] ([place]) CO2 25 22 - 32 mmol/L [facility] Anion gap 10 2 - 15 mmol/L [facility] ([place]) BUN 21 6 - 25 mg/dL [facility] ([place]) Creatinine 0.91 0.60 - 1.10 mg/dL [facility] ([place]) Glucose 89 70 - 199 mg/dL [facility] ([place]) Comment: Interpretive Data Fasting glucose [...] 2022. Calcium 9.2 8.5 - 10.3 mg/dL [facility] ([place]) Bilirubin, total 0.2 0.1 - 1.2 mg/dL [facility] Protein, pl 7.1 6.5 - 8.5 g/dL [facility] ([place]) Albumin 4.0 3.5 - 5.0 g/dL [facility] ([place]) Alk phos 122 40 - 130 Units/L [facility] ([place]) ALT 18 7 - 45 Units/L [facility] ([place]) AST 19 10 - 45 Units/L [facility] Blood 03/04/2025 11:5 5 AM CDT 03/04/2025 11:58 AM CDT Anushka Michel MD LAB BLOOD ORDERABLES Marlene l Result Performing Organization Address City/[facility]/ZIP Co de Phone Number [facility] ([place]) 1 [facility] Department of Laboratories [place] [phone] * ECG 12 lead (03/04/2025 11:33 AM CDT) 03/04/2025 11:3 3 AM CDT Narrative [facility] [employer] - 03/04/2025 12:13 PM CDT Vent Rate: 71 bpm RR Interval: 839 msec ID Interval: 144 msec QRS Duration: 101 msec QT Interval: 409 msec QTC Interval: 432 msec P-R-T [place]: 36 - 15 - 15 degrees IMPRESSION: Baseline artifact, probable SINUS RHYTHM NORMAL ECG Compared to prior EKG, heart rate has decreased Electronically Signed By: Stefan Domínguez MD Anushka Michel MD ECG ORDERABLES Final Res ult Performing Organization Address City/[facility]/ZIP Co de Phone Number [facility] [employer] [facility] * XR Chest 1 Vw Portable (if [...] Carloz Zimmerman M.D. AM: AM Report ID: [id number] Reading Location: [id number] Procedure Note Carloz Zimmerman MD - 03/04/2025 [...] Carloz Zimmerman M.D. AM: AM Report ID: [id number] Reading Location: [id number] Anushka Michel MD IMG XR PROCEDURES Final [...] Marlene l Result [facility] ([place]) 1 [facility] [place] [address] * CBC with auto differential (03/04/2025 11:25 [...] Marlene l Result [facility] ([place]) 1 [facility] [employer] [place] [address] * Screening Mammogram Bilateral W Ty (01/28/2018 [...] Most Recently Relevant to Health Maintenance Insurance [facility] MEDICAID [facility] Care Teams Business Support Associate Relationship Specialty Start Date End Date Damon Valenzuela MD PCP - General 01/05/18
[2025-05-17 17:51] LABS: Influenza A QL RT-PCR Negative (Negative); Influenza B QL RT-PCR Negative (Negative); RSV RNA, RT-PCR Negative (Negative); SARS-CoV-2 RNA PCR Negative (Negative)
[2025-05-17 18:00] VITALS: BP 146/71; PULSE 72; RESP 18; TEMP 36.6; O2SAT 97
[2025-05-17 18:05] VITALS: BP 119/61; PULSE 63; RESP 16; TEMP 36.6; O2SAT 100
== END 2025-05-17 18:05 | disposition home or self-care (01) ==
PROVIDERS: Emergency Provider Emergency Medicine; PCP Emergency Medicine
DX: B34.9 Viral infection, unspecified (principal); I50.9 Heart failure, unspecified; E78.5 Hyperlipidemia, unspecified; J44.9 Chronic obstructive pulmonary disease, unspecified; E03.9 Hypothyroidism, unspecified; Z87.891 Personal history of nicotine dependence; Z20.822 Contact with and (suspected) exposure to COVID-19
CPT/HCPCS: 87637; 99283